=== PATIENT | female | born 1955 | race Two or more races ===

== ENCOUNTER 2020-04-20 13:07 | Outpatient (REF) | payer BC, SELFPAY ==
[2020-04-20 13:52] LABS: MANUAL DIFF FLAG NO
[2020-04-20 13:57] LABS: Basophils Percent Auto 0.2 % (0-2); Hematocrit 36.5 % (37-47); Hemoglobin 12.3 g/dl (12.0-16.0); Imm Gran Abs Auto 0.17 X10*3/uL (0.00-0.03); Imm Gran Pct Auto 1.5 % (0.0-0.4); Lymphocytes Absolute Auto 1.5 X10*3/uL (1.2-4.9); Lymphocytes Percent Auto 13.4 % (20-40); Mean Corpuscular HGB Conc 33.7 g/dl (31.0-35.0); Mean Corpuscular Hemoglobin 35.3 pg (27.0-33.0); Mean Corpuscular Volume 104.9 fL (80-98); Mean Platelet Volume 9.8 fL (9.4-12.3); Monocytes Absolute Auto 0.7 X10*3/uL (0.1-1.2); Monocytes Percent Auto 6.3 % (2-11); Neutrophils Percent Auto 78.6 % (45-73); Platelet Count 338 X10*3/uL (160-400); Red Blood Count 3.48 X10*6/uL (4.20-5.50); White Blood Count 11.5 X10*3/uL (4.8-10.8)
[2020-04-20 14:31] LABS: Anion Gap 15 (12-20); Blood Urea Nitrogen 24 mg/dL (9-16); Calcium 9.6 mg/dL (8.4-10.2); Carbon Dioxide 25 mmol/L (22-29); Chloride 103 mmol/L (96-108); Estimated Glomerular Filt Rate 45; Glucose Random 93 mg/dL (60-115); Potassium 4.5 mmol/l (3.3-5.1); Sodium 138 mmol/L (135-145)
[2020-04-20 15:02] LABS: Folate > 20.0 ng/mL (> or = 4.0); Vitamin B12 > 2000 pg/mL (200-900)
== END 2020-04-20 13:08 | disposition home or self-care (01) ==
LOC: HO.HMGCLDS 13:07
PROVIDERS: PCP Internal Medicine; Visit Provider Internal Medicine
DX: I10 Essential (primary) hypertension (principal)
CPT/HCPCS: 36415; 80048; 82607; 82746; 85025

== ENCOUNTER 2020-05-06 07:30 | Day surgery (SDC) | payer BC, SELFPAY ==
[2020-05-02 16:24] VITALS: BMI 32.5
--- NOTE | 2020-05-05 10:30 | HO.ANESPROP2 ---
Documented by User: Nydia Jenkins 05/05/20 10:38 HPI - Anesthesia Eval Consult details Narrative: 65yo F for screening colonoscopy PMFSH Past Medical History Medical History DJD (degenerative joint disease) of cervical spine Elevated cholesterol GERD (gastroesophageal reflux disease) Graves disease On beta cj at home Peripheral vascular disease Rheumatoid arthritis Surgical History Surgical History History of bladder surgery Hx of appendectomy Hx of colonoscopy Hx of left knee surgery Hx of tonsillectomy Hx of tubal ligation S/P femoral-femoral bypass surgery Social History Social History Advance Directives: No Meds Allergies Allergy/AdvReac Type Severity Reaction Status Date / Time rofecoxib [From VIOXX] Allergy Severe ANAPHYLAXIS Verified 05/06/20 07:38 clopidogrel [From PLAVIX] Allergy Unknown HIUES Verified 05/06/20 07:38 lisinopril [LISINOPRIL] Allergy Unknown ANGIOEDEMA Verified 05/06/20 07:38 Home Medications Medication Instructions Recorded Confirmed Type acetaminophen [Arthritis Pain 650 mg PO Q12H PRN 05/02/20 05/02/20 History Reliever] amlodipine 1 tab PO DAILY 05/02/20 05/02/20 History ascorbic acid (vitamin C) [Vitamin 1,000 mg PO DAILY 05/02/20 05/02/20 History C] aspirin [Aspir-81] 81 mg PO DAILY 05/02/20 05/02/20 History atorvastatin 1 tab PO DAILY 05/02/20 05/02/20 History diazepam 1 tab PO BID 05/02/20 05/02/20 History diclofenac sodium 2 g TOPICAL QID 05/02/20 05/02/20 History fexofenadine [Rhea Allergy] 180 mg PO DAILY 05/02/20 05/02/20 History furosemide 1 tab PO DAILY 05/02/20 05/02/20 History hydroxychloroquine 2 tab PO DAILY 05/02/20 05/02/20 History metoprolol succinate 1 tab PO DAILY 05/02/20 05/02/20 History pantoprazole 40 mg PO DAILY 05/02/20 05/02/20 History spironolactone 1 tab PO DAILY 05/02/20 05/02/20 History vitamin B complex [B Complete] 1 tab PO DAILY 05/02/20 05/02/20 History Exam Exam Date and Time: May 05, 2020 1030 Height,Weight and Vital Signs: Height 5 ft 4 in Weight 86.183 kg Pertinent Lab Results Pertinent Lab Results: Laboratory Tests 04/20/20 04/20/20 13:14 13:14 WBC 11.5 H Hgb 12.3 Hct 36.5 L Plt Count 338 Sodium 138 Potassium 4.5 Chloride 103 Carbon Dioxide 25 BUN 24 H Creatinine 1.22 Assessment and Plan Assessment Anesthesia Assessment: Chart Reviewed Documented by User: Mel Amato 05/06/20 08:39 [facility] Past Medical History Medical History DJD (degenerative joint disease) of cervical spine Elevated cholesterol GERD (gastroesophageal reflux disease) Graves disease On beta cj at home Peripheral vascular disease Rheumatoid arthritis Surgical History Surgical History History of bladder surgery Hx of appendectomy Hx of colonoscopy Hx of left knee surgery Hx of tonsillectomy Hx of tubal ligation S/P femoral-femoral bypass surgery Social History Social History Advance Directives: No Meds Allergies Allergy/AdvReac Type Severity Reaction Status Date / Time rofecoxib [From VIOXX] Allergy Severe ANAPHYLAXIS Verified 05/06/20 07:38 clopidogrel [From PLAVIX] Allergy Unknown HIUES Verified 05/06/20 07:38 lisinopril [LISINOPRIL] Allergy Unknown ANGIOEDEMA Verified 05/06/20 07:38 Home Medications Medication Instructions Recorded Confirmed Type acetaminophen [Arthritis Pain 650 mg PO Q12H PRN 05/02/20 05/02/20 History Reliever] amlodipine 1 tab PO DAILY 05/02/20 05/02/20 History ascorbic acid (vitamin C) [Vitamin 1,000 mg PO DAILY 05/02/20 05/02/20 History C] aspirin [Aspir-81] 81 mg PO DAILY 05/02/20 05/02/20 History atorvastatin 1 tab PO DAILY 05/02/20 05/02/20 History diazepam 1 tab PO BID 05/02/20 05/02/20 History diclofenac sodium 2 g TOPICAL QID 05/02/20 05/02/20 History fexofenadine [Rhea Allergy] 180 mg PO DAILY 05/02/20 05/02/20 History furosemide 1 tab PO DAILY 05/02/20 05/02/20 History hydroxychloroquine 2 tab PO DAILY 05/02/20 05/02/20 History metoprolol succinate 1 tab PO DAILY 05/02/20 05/02/20 History pantoprazole 40 mg PO DAILY 05/02/20 05/02/20 History spironolactone 1 tab PO DAILY 05/02/20 05/02/20 History vitamin B complex [B Complete] 1 tab PO DAILY 05/02/20 05/02/20 History Exam Airway Mallampati Class: II TM Dist: >3cm Neck ROM: Full Assessment and Plan Assessment Anesthesia Assessment: Anesthesia Plan Discussed and Chart Reviewed Final Anesthetic Review NPO: Yes ASA Class: III Final Preanesthetic Review: No Changes in Pt Med Stat, Meds/Allgs Chart Reviewed, Consent Obtained/Reviewed and DNR Form (If Appl.) Patient Risk: Intermediate Procedure Risk: Low Assessment/Block/Sedation in SS: Assess/Block/Sedation-SS Anesthetic Plan Anesthetic Plan: MAC: Disposition: Standard PACU
--- NOTE | 2020-05-05 20:30 | P.HPSUR_ITS ---
Pre-Procedural Eval Section B Chief Complaint: Screening Details of Present Illness: screening Relevant Family History (Specify if Yes): No Relevant Social History: None Present Medications: see Short Stay Collaborative assessment Medical History: Significant History (see H&P) Allergies: Allergies Allergy/AdvReac Type Severity Reaction Status Date / Time rofecoxib [From VIOXX] Allergy Severe ANAPHYLAXIS Unverified 03/31/20 17:04 clopidogrel [From PLAVIX] Allergy Unknown HIUES Unverified 03/31/20 17:04 lisinopril [LISINOPRIL] Allergy Unknown ANGIOEDEMA Unverified 03/31/20 17:04 Review of Systems Sugical H&P ROS: Negative: Constitution, Cardiovascular, Respiratory, Neurologi jassi, Psychiatric, Hem-Onc, Allergic/Immunologic, Gastrointestinal, Genitourinary, Musculoskeletal, Integumentary, Endocrine and Eyes/Ears/Nose/Throat Exam Surgical H&P Exam: Normal: HEENT, Normal: Heart, Normal: Lungs, Normal: Extremities, Normal: Abdomen, Normal: Skin and Normal: Neurological Plan Diagnosis/Plan: Unchanged Patient has been examined and remains a candidate for the planned procedure
[2020-05-06 07:39] VITALS: BP 183/85; PULSE 91; RESP 16; TEMP 36.2; O2SAT 100
[2020-05-06] MEDS: Lactated Ringers 1,000 ML 100 ML IVCONT (08:02)
[2020-05-06 08:50] VITALS: BP 119/68; PULSE 73; RESP 16; TEMP 36; O2SAT 96
--- NOTE | 2020-05-06 08:52 | PM.OP ---
Brief Operative Note Date of procedure: 05/06/20 Pre-op diagnosis: screening Post-op diagnosis: same Procedure: colonoscopy Surgeon: Paul Flores Anesthesia: MAC Estimated blood loss (mL): 0 Pathology: none sent Condition: stable Disposition: PACU
[2020-05-06 09:04] VITALS: BP 155/79; PULSE 67; RESP 16; TEMP 36.1; O2SAT 100
--- NOTE | 2020-05-06 09:18 | HO.POSTANES ---
Post Anesthesia Evaluation Post Anesthesia Evaluation Vital Signs: Vital Signs Temp Pulse Resp BP Pulse Ox 05/06/20 09:04 97 F 67 16 155/79 H 100 05/06/20 08:50 96.8 F 73 16 119/68 96 05/06/20 07:39 97.1 F 91 16 183/85 H 100 Anesthesia: Monitored Mental Status: Awake Pain Control: Satisfactory Nausea/Vomiting: None Hydration: Adequate Anesthesia-Related Issues: No Anes. Related Issues
--- NOTE | 2020-05-06 09:53 | OP_ITS ---
SURGEON: Paul Flores MD INDICATIONS: Colon cancer screening. Prior history of adenomatous colon polyps. PREOPERATIVE DIAGNOSIS: POSTOPERATIVE DIAGNOSIS: PROCEDURE PERFORMED: Colonoscopy to the terminal ileum. ESTIMATED BLOOD LOSS: COMPLICATIONS: ANESTHESIA: ASSISTANTS: SPECIMENS: MEDICATIONS: Monitored anesthesia care. DESCRIPTION OF PROCEDURE: History and physical performed. The risks and benefits of the procedure were explained to the patient. Informed consent was obtained. The patient was placed in the left lateral decubitus position. A digital rectal exam was performed and was found to be normal. The Olympus pediatric video colonoscope was introduced into the rectum and advanced to the cecum without difficulty. The cecum was identified by transillumination, palpation, and identification of ileocecal valve. Examination was performed and the scope was removed. She tolerated the procedure well and was transferred to the recovery area in stable condition. FINDINGS: The terminal ileum was normal. The visualized colonic mucosa was normal. The quality of prep was good. No polyps were identified. Retroflexed examination showed small internal hemorrhoids. There were few diverticula. IMPRESSION: Normal colonoscopy. RECOMMENDATIONS: 1. Follow up as needed. 2. Repeat colonoscopy is recommended in 5 years due to prior history of colon polyps. MD ZAKIYA Russo/DARIAN / [id number]
== END 2020-05-06 09:34 | disposition home or self-care (01) ==
PROVIDERS: PCP Internal Medicine; Visit Provider Internal Medicine Gastroenterology
PROC: 0DJD8ZZ Inspection of Lower Intestinal Tract, Via Natural or Artificial Opening Endoscopic (ICD-10-PCS; CPT 45378; principal; 2020-05-06 08:30)
DX: Z12.11 Encounter for screening for malignant neoplasm of colon (principal); Z86.010 Personal history of colon polyps; K57.30 Diverticulosis of large intestine without perforation or abscess without bleeding; K64.8 Other hemorrhoids; K21.9 Gastro-esophageal reflux disease without esophagitis; E78.00 Pure hypercholesterolemia, unspecified; E05.00 Thyrotoxicosis with diffuse goiter without thyrotoxic crisis or storm; M06.9 Rheumatoid arthritis, unspecified; I73.9 Peripheral vascular disease, unspecified; Z79.82 Long term (current) use of aspirin; Z79.899 Other long term (current) drug therapy; Z88.8 Allergy status to other drugs, medicaments and biological substances
CPT/HCPCS: 45378; J3010

== ENCOUNTER 2020-12-22 09:38 | Outpatient (REF) | payer BC, SELFPAY ==
[2020-12-22 11:08] LABS: MANUAL DIFF FLAG NO
[2020-12-22 11:28] LABS: Basophils Absolute Auto 0.1 X10*3/uL (0.0-0.2); Basophils Percent Auto 0.7 % (0-2); Hematocrit 37.5 % (37-47); Hemoglobin 12.1 g/dl (12.0-16.0); Imm Gran Abs Auto 0.09 X10*3/uL (0.00-0.03); Imm Gran Pct Auto 0.9 % (0.0-0.4); Lymphocytes Absolute Auto 2.1 X10*3/uL (1.2-4.9); Lymphocytes Percent Auto 19.7 % (20-40); Mean Corpuscular HGB Conc 32.3 g/dl (31.0-35.0); Mean Corpuscular Hemoglobin 34.5 pg (27.0-33.0); Mean Corpuscular Volume 106.8 fL (80-98); Mean Platelet Volume 10.3 fL (9.4-12.3); Monocytes Absolute Auto 0.7 X10*3/uL (0.1-1.2); Neutrophils Absolute Auto 7.6 X10*3/uL (2.0-8.3); Neutrophils Percent Auto 71.7 % (45-73); Platelet Count 330 X10*3/uL (160-400); Red Blood Count 3.51 X10*6/uL (4.20-5.50); Red Cell Distribution Width 14.2 % (11.0-16.0); White Blood Count 10.6 X10*3/uL (4.8-10.8)
[2020-12-22 11:57] LABS: Alanine Aminotransferase 22 U/L (0-31); Albumin Level 4.3 g/dL (3.5-5.0); Alkaline Phosphatase 84 U/L (39-117); Anion Gap 16 (12-20); Aspartate Amino Transferase 25 U/L (5-31); Bilirubin Total 0.5 mg/dL (0.0-1.0); Blood Urea Nitrogen 16 mg/dL (9-16); Calcium 10.1 mg/dL (8.4-10.2); Carbon Dioxide 29 mmol/L (22-29); Chloride 102 mmol/L (96-108); Cholesterol 163 mg/dL; Estimated Glomerular Filt Rate 38; Glucose Fasting 93 mg/dL (60-99); HDL Cholesterol 68 mg/dL; LDL Cholesterol Calculated 78 mg/dl; Potassium 4.9 mmol/L (3.3-5.1); Sodium 142 mmol/L (135-145); Total Protein 6.6 g/dL (6.5-8.0); Triglycerides 88 mg/dL
[2020-12-22 12:20] LABS: Thyroid Stimulating Hormone 3.48 uIU/mL (0.32-4.0); Vitamin D 25-OH Total 46.1 ng/mL (>30)
== END 2020-12-22 09:39 | disposition home or self-care (01) ==
LOC: HO.HMGCLDS 09:38
PROVIDERS: PCP Internal Medicine; Visit Provider Internal Medicine
DX: I10 Essential (primary) hypertension (principal); E78.00 Pure hypercholesterolemia, unspecified; M06.09 Rheumatoid arthritis without rheumatoid factor, multiple sites; I73.9 Peripheral vascular disease, unspecified
CPT/HCPCS: 36415; 80053; 80061; 82306; 84443; 85025

== ENCOUNTER 2021-10-02 10:00 | Outpatient (REF) | payer MEDICARE, BC, SELFPAY ==
[2021-10-02 11:42] LABS: MANUAL DIFF FLAG NO
[2021-10-02 11:48] LABS: Basophils Absolute Auto 0.1 X10*3/uL (0.0-0.2); Basophils Percent Auto 0.9 % (0-2); Eosinophils Absolute Auto 0.1 X10*3/uL (0.0-0.4); Eosinophils Percent Auto 2.2 % (0-4); Hematocrit 38.8 % (37.0-47.0); Hemoglobin 12.6 g/dl (12.0-16.0); Imm Gran Abs Auto 0.02 X10*3/uL (0.00-0.03); Imm Gran Pct Auto 0.3 % (0.0-0.4); Lymphocytes Absolute Auto 1.8 X10*3/uL (1.2-4.9); Mean Corpuscular HGB Conc 32.5 g/dl (31.0-35.0); Mean Corpuscular Hemoglobin 32.6 pg (27.0-33.0); Mean Corpuscular Volume 100.5 fL (80.0-98.0); Mean Platelet Volume 10.8 fL (9.4-12.3); Monocytes Absolute Auto 0.5 X10*3/uL (0.1-1.2); Monocytes Percent Auto 8.4 % (2-11); Neutrophils Absolute Auto 3.4 x10*3/uL (2.0-8.3); Neutrophils Percent Auto 58.2 % (45-73); Platelet Count 253 X10*3/uL (160-400); Red Blood Count 3.86 X10*6/uL (4.20-5.50); Red Cell Distribution Width 13.3 % (11.0-16.0); White Blood Count 5.8 X10*3/uL (4.8-10.8)
[2021-10-02 12:10] LABS: Alanine Aminotransferase 38 U/L (0-31); Albumin Level 4.3 g/dL (3.5-5.0); Alkaline Phosphatase 86 U/L (39-117); Anion Gap 16 (12-20); Aspartate Amino Transferase 41 U/L (5-31); Bilirubin Total 0.8 mg/dL (0.0-1.0); Blood Urea Nitrogen 18 mg/dL (9-16); Calcium 10.2 mg/dL (8.4-10.2); Carbon Dioxide 28 mmol/L (22-29); Chloride 100 mmol/L (96-108); Cholesterol 154 mg/dL; Estimated Glomerular Filt Rate 35; Glucose Fasting 95 mg/dL (60-99); HDL Cholesterol 73 mg/dL; LDL Cholesterol Calculated 65 mg/dl; Potassium 3.9 mmol/L (3.3-5.1); Sodium 140 mmol/L (135-145); Total Protein 6.6 g/dL (6.5-8.0); Triglycerides 80 mg/dL
[2021-10-02 12:31] LABS: Vitamin D 25-OH Total 45.6 ng/mL (>30)
[2021-10-02 13:16] LABS: Folate 18.5 ng/mL (> or = 4.0); Vitamin B12 1912 pg/mL (200-900)
[2021-10-02 14:05] LABS: Appearance Urine CLEAR; Color Urine YELLOW; Glucose Urine UA NEG (NEG); Leukocyte Esterase Urine NEG (NEG); Nitrite Urine NEG (NEG); Specific Gravity - Urine 1.025 (1.005-1.025); Urine Blood NEG (NEG); Urine Ketones NEG (NEG); Urine Protein NEG (NEG-TRACE)
[2021-10-02 14:36] LABS: RBC Urine 0 /HPF (0); Squamous Epithelial Cell Urine 1+ /LPF; Urine Talc Crystals 1+ /LPF; WBC Urine 0 /HPF (0-4)
== END 2021-10-02 10:01 | disposition home or self-care (01) ==
LOC: HO.HMGCLDS 10:00
PROVIDERS: PCP Internal Medicine; Visit Provider Internal Medicine
DX: I10 Essential (primary) hypertension (principal); E78.00 Pure hypercholesterolemia, unspecified; M06.09 Rheumatoid arthritis without rheumatoid factor, multiple sites; I73.9 Peripheral vascular disease, unspecified
CPT/HCPCS: 36415; 80053; 80061; 81001; 82306; 82607; 82746; 84443; 85025

== ENCOUNTER 2022-06-12 | Outpatient (REF) | payer MEDICARE, BC, SELFPAY ==
--- NOTE | ~2022-06-12 | XR_ITS ---
EXAMINATION: XR HIP, RIGHT CLINICAL INFORMATION: Right hip pain COMPARISON: None TECHNIQUE: Two views of the right hip and one view of the pelvis. FINDINGS: There is bilateral hip arthritis with joint space narrowing and osteophyte formation, left greater than right. There are degenerative changes of the visualized lower lumbar spine. No fracture or dislocation. There is evidence of severe atherosclerotic disease. There is a right common and external iliac artery stent. There are surgical clips in the right groin. XR/XR hip RT w PEL1V IMPRESSION: Bilateral hip arthritis, left greater than right. Arthritis of the visualized lower lumbar spine. Severe atherosclerotic disease.
== END 2022-06-12 00:01 ==
LOC: HO.HOSX
PROVIDERS: Visit Provider Physician Assistant
DX: M25.551 Pain in right hip (principal); M54.16 Radiculopathy, lumbar region
CPT/HCPCS: 73502; 99212

== ENCOUNTER 2022-06-21 10:05 | Outpatient (REF) | payer MEDICARE, BC, SELFPAY ==
[2022-06-21 11:21] LABS: MANUAL DIFF FLAG NO
[2022-06-21 11:40] LABS: Basophils Absolute Auto 0.1 X10*3/uL (0.0-0.2); Basophils Percent Auto 0.5 % (0-2); Eosinophils Absolute Auto 0.1 X10*3/uL (0.0-0.4); Eosinophils Percent Auto 1.4 % (0-4); Hematocrit 39.2 % (37.0-47.0); Hemoglobin 12.6 g/dl (12.0-16.0); Imm Gran Abs Auto 0.04 X10*3/uL (0.00-0.03); Imm Gran Pct Auto 0.4 % (0.0-0.4); Lymphocytes Absolute Auto 1.7 X10*3/uL (1.2-4.9); Lymphocytes Percent Auto 16.8 % (20-40); Mean Corpuscular HGB Conc 32.1 g/dl (31.0-35.0); Mean Corpuscular Hemoglobin 32.5 pg (27.0-33.0); Mean Platelet Volume 10.1 fL (9.4-12.3); Monocytes Absolute Auto 0.5 X10*3/uL (0.1-1.2); Monocytes Percent Auto 5.5 % (2-11); Neutrophils Absolute Auto 7.4 x10*3/uL (2.0-8.3); Neutrophils Percent Auto 75.4 % (45-73); Platelet Count 269 X10*3/uL (160-400); Red Blood Count 3.88 X10*6/uL (4.20-5.50); Red Cell Distribution Width 14.6 % (11.0-16.0); White Blood Count 9.8 X10*3/uL (4.8-10.8)
[2022-06-21 13:03] LABS: Alanine Aminotransferase 17 U/L (0-31); Albumin Level 4.5 g/dL (3.5-5.0); Alkaline Phosphatase 104 U/L (39-117); Anion Gap 16 (12-20); Aspartate Amino Transferase 24 U/L (5-31); Bilirubin Total 0.7 mg/dL (0.0-1.0); Blood Urea Nitrogen 21 mg/dL (9-16); Calcium 9.9 mg/dL (8.4-10.2); Carbon Dioxide 29 mmol/L (22-29); Chloride 103 mmol/L (96-108); Cholesterol 191 mg/dL; Estimated Glomerular Filt Rate 42; Glucose Fasting 99 mg/dL (60-99); HDL Cholesterol 85 mg/dL; LDL Cholesterol Calculated 91 mg/dl; Potassium 4.7 mmol/L (3.3-5.1); Sodium 143 mmol/L (135-145); Thyroid Stimulating Hormone 2.43 uIU/mL (0.32-4.0); Total Protein 6.8 g/dL (6.5-8.0); Triglycerides 79 mg/dL; Uric Acid 5.3 mg/dL (2.4-5.7); Vitamin D 25-OH Total 54.3 ng/mL (>30)
== END 2022-06-21 10:06 | disposition home or self-care (01) ==
LOC: HO.HMGCLDS 10:05
PROVIDERS: PCP Internal Medicine; Visit Provider Internal Medicine
DX: I10 Essential (primary) hypertension (principal); E78.00 Pure hypercholesterolemia, unspecified; M06.09 Rheumatoid arthritis without rheumatoid factor, multiple sites; I73.9 Peripheral vascular disease, unspecified
CPT/HCPCS: 36415; 80053; 80061; 82306; 84443; 84550; 85025

== ENCOUNTER 2023-06-25 09:44 | Outpatient (REF) | payer MEDICARE, BC, SELFPAY ==
[2023-06-25 13:44] LABS: MANUAL DIFF FLAG NO
[2023-06-25 14:00] LABS: Basophils Absolute Auto 0.1 X10*3/uL (0.0-0.2); Basophils Percent Auto 0.6 % (0-2); Eosinophils Absolute Auto 0.2 X10*3/uL (0.0-0.4); Eosinophils Percent Auto 2.4 % (0-4); Hematocrit 39.4 % (37.0-47.0); Hemoglobin 12.9 g/dl (12.0-16.0); Imm Gran Abs Auto 0.06 X10*3/uL (0.00-0.03); Imm Gran Pct Auto 0.6 % (0.0-0.4); Lymphocytes Absolute Auto 1.9 X10*3/uL (1.2-4.9); Lymphocytes Percent Auto 19.5 % (20-40); Mean Corpuscular HGB Conc 32.7 g/dl (31.0-35.0); Mean Corpuscular Hemoglobin 34.8 pg (27.0-33.0); Mean Corpuscular Volume 106.2 fL (80.0-98.0); Mean Platelet Volume 10.3 fL (9.4-12.3); Monocytes Absolute Auto 0.6 X10*3/uL (0.1-1.2); Monocytes Percent Auto 6.1 % (2-11); Neutrophils Absolute Auto 6.9 x10*3/uL (2.0-8.3); Neutrophils Percent Auto 70.8 % (45-73); Platelet Count 267 X10*3/uL (160-400); Red Blood Count 3.71 X10*6/uL (4.20-5.50); Red Cell Distribution Width 13.1 % (11.0-16.0); White Blood Count 9.8 X10*3/uL (4.8-10.8)
[2023-06-25 14:39] LABS: Alanine Aminotransferase 12 U/L (0-31); Albumin Level 4.3 g/dL (3.5-5.0); Alkaline Phosphatase 74 U/L (39-117); Anion Gap 14 (12-20); Aspartate Amino Transferase 17 U/L (5-31); Bilirubin Total 0.6 mg/dL (0.0-1.0); Blood Urea Nitrogen 21 mg/dL (9-16); Calcium 10.1 mg/dL (8.4-10.2); Carbon Dioxide 26 mmol/L (22-29); Chloride 110 mmol/L (96-108); Cholesterol 178 mg/dL (<200); Estimated Glomerular Filt Rate 46; Glucose Fasting 94 mg/dL (60-99); HDL Cholesterol 63 mg/dL (>40); LDL Cholesterol Calculated 94 mg/dL (<100); Potassium 4.9 mmol/L (3.3-5.1); Sodium 145 mmol/L (135-145); Total Protein 7.1 g/dL (6.5-8.0); Triglycerides 107 mg/dL (<150); Uric Acid 4.8 mg/dL (2.4-5.7)
[2023-06-25 14:43] LABS: Thyroid Stimulating Hormone 2.44 uIU/mL (0.32-4.0); Vitamin D 25-OH Total 48.7 ng/mL (>30)
== END 2023-06-25 09:45 | disposition home or self-care (01) ==
LOC: HO.HMGCLDS 09:44
PROVIDERS: PCP Internal Medicine; Visit Provider Internal Medicine
DX: I10 Essential (primary) hypertension (principal); E78.00 Pure hypercholesterolemia, unspecified; M06.09 Rheumatoid arthritis without rheumatoid factor, multiple sites; I73.9 Peripheral vascular disease, unspecified
CPT/HCPCS: 36415; 80053; 80061; 82306; 84443; 84550; 85025

== ENCOUNTER 2023-10-28 09:52 | Outpatient (REF) | payer MEDICARE, BC, SELFPAY ==
[2023-10-28 13:41] LABS: MANUAL DIFF FLAG NO
[2023-10-28 13:51] LABS: Basophils Absolute Auto 0.1 X10*3/uL (0.0-0.2); Basophils Percent Auto 0.6 % (0-2); Eosinophils Absolute Auto 0.3 X10*3/uL (0.0-0.4); Eosinophils Percent Auto 3.2 % (0-4); Hematocrit 37.8 % (37.0-47.0); Hemoglobin 12.3 g/dl (12.0-16.0); Imm Gran Abs Auto 0.06 X10*3/uL (0.00-0.03); Imm Gran Pct Auto 0.7 % (0.0-0.4); Lymphocytes Absolute Auto 1.5 X10*3/uL (1.2-4.9); Lymphocytes Percent Auto 17.8 % (20-40); Mean Corpuscular HGB Conc 32.5 g/dl (31.0-35.0); Mean Corpuscular Hemoglobin 34.7 pg (27.0-33.0); Mean Corpuscular Volume 106.8 fL (80.0-98.0); Mean Platelet Volume 10.2 fL (9.4-12.3); Monocytes Absolute Auto 0.5 X10*3/uL (0.1-1.2); Monocytes Percent Auto 6.3 % (2-11); Neutrophils Absolute Auto 6.2 x10*3/uL (2.0-8.3); Neutrophils Percent Auto 71.4 % (45-73); Platelet Count 238 X10*3/uL (160-400); Red Blood Count 3.54 X10*6/uL (4.20-5.50); Red Cell Distribution Width 13.8 % (11.0-16.0); White Blood Count 8.6 X10*3/uL (4.8-10.8)
[2023-10-28 14:11] LABS: Alanine Aminotransferase 17 U/L (0-31); Alkaline Phosphatase 73 U/L (39-117); Anion Gap 14 (12-20); Aspartate Amino Transferase 19 U/L (5-31); Bilirubin Total 0.5 mg/dL (0.0-1.0); Blood Urea Nitrogen 15 mg/dL (9-16); Calcium 9.6 mg/dL (8.4-10.2); Carbon Dioxide 27 mmol/L (22-29); Chloride 108 mmol/L (96-108); Cholesterol 163 mg/dL (<200); Estimated Glomerular Filt Rate 55; Glucose Fasting 86 mg/dL (60-99); HDL Cholesterol 57 mg/dL (>40); LDL Cholesterol Calculated 83 mg/dL (<100); Potassium 4.7 mmol/L (3.3-5.1); Sodium 144 mmol/L (135-145); Total Protein 6.5 g/dL (6.5-8.0); Triglycerides 116 mg/dL (<150)
[2023-10-28 15:55] LABS: Folate 13.6 ng/mL (> or = 4.0); Vitamin B12 > 2000 pg/mL (200-900)
== END 2023-10-28 09:53 | disposition home or self-care (01) ==
LOC: HO.HMGCLDS 09:52
PROVIDERS: PCP Internal Medicine; Visit Provider Internal Medicine
DX: I10 Essential (primary) hypertension (principal); E78.00 Pure hypercholesterolemia, unspecified; I73.9 Peripheral vascular disease, unspecified; M06.09 Rheumatoid arthritis without rheumatoid factor, multiple sites
CPT/HCPCS: 36415; 80053; 80061; 82607; 82746; 85025

== ENCOUNTER 2024-04-13 11:57 | Inpatient (IN) | payer MEDICARE, BC, SELFPAY ==
[2024-04-13] VITALS (7 sets, daily range): BP systolic 104–141; BP diastolic 23–67; PULSE 80–88; RESP 16–20; TEMP 36.3–37.4; O2SAT 93–100; BMI 37.8
--- NOTE | ~2024-04-13 | XR_ITS ---
EXAMINATION: XR CHEST CLINICAL INFORMATION: Weakness after fall. COMPARISON: None available. TECHNIQUE: Frontal view of the chest was obtained. FINDINGS: Low lung volumes. No airspace consolidation. No pleural effusion. Cardiac silhouette is unchanged. XR/XR chest 1V IMPRESSION: No acute abnormality. Electronically signed by: Jai Faye MD 04/13/2024 01:31 PM EDT
--- NOTE | ~2024-04-13 | CT_ITS ---
EXAMINATION: CT HEAD WITHOUT CONTRAST CLINICAL INFORMATION: Left lower extremity weakness. COMPARISON: None currently available. TECHNIQUE: Contiguous axial imaging was performed from the skull base to vertex without intravenous administration of contrast. This CT examination was performed using dose optimization techniques as appropriate, variously including the following: *Automated exposure control *Adjustment of mA and/or kV according to patient size (this includes techniques or standardized protocols for targeted exams where dose is matched to indication/reason for exam; i.e. extremities or head) *Use of iterative reconstruction technique DLP: 1445 mGy-cm FINDINGS: No intracranial hemorrhage, large infarction, or mass lesion is seen. No extra-axial collection is appreciated. The ventricles are normal in size and configuration without evidence of hydrocephalus. The visualized paranasal sinuses and mastoid air cells are clear. CT/CT head/brain wo IV con IMPRESSION: No acute intracranial finding. Electronically signed by: Mark Marti MD 04/13/2024 02:37 PM EDT
--- NOTE | ~2024-04-13 | CT_ITS ---
EXAMINATION: CT ABDOMEN AND PELVIS WITHOUT CONTRAST CLINICAL INFORMATION: Leukocytosis. Weakness. COMPARISON: CT abdomen and pelvis from 12/20/2015. TECHNIQUE: Multidetector volumetric imaging was performed from the lung bases to the pubic without contrast. Sagittal and coronal reformatted images were obtained on the technologist workstation. This CT examination was performed using dose optimization techniques as appropriate, variously including the following: *Automated exposure control. *Adjustment of mA and/or kV according to patient size (this includes techniques or standardized protocols for targeted exams where dose is matched to indication/reason for exam; i.e. extremities or head). *Use of iterative reconstruction technique. DLP: 717 mGy-cm FINDINGS: LUNG BASES: Patchy airspace consolidation of the left lung base. Mild dependent atelectasis of the right lung base. Heavy calcific atherosclerotic disease of the coronary arteries. No additional demonstrated abnormalities of the visualized cardiac structures. ABDOMEN/PELVIS: Liver, Biliary Ducts, and Gallbladder: The unenhanced liver is normal in size and attenuation without focal hepatic lesions or biliary ductal dilatation. The gallbladder is physiologically distended without radiopaque gallstones, pericholecystic fluid, or significant gallbladder wall thickening. Pancreas: The pancreas is normal in appearance. Adrenal Glands: The adrenal glands are normal in appearance. Spleen: The spleen is normal in appearance. Kidneys and Ureters: The unenhanced kidneys are normal in size without evidence of nephrolithiasis or hydronephrosis. There is a 2.5 cm hypoattenuating cyst in the lower pole the right kidney (no follow-up imaging recommended based on current guidelines at the time of examination). There is a 2 cm mildly hyperattenuating nodule in the interpolar region of the left kidney (35 Hounsfield units). Mild bilateral perinephric fat stranding. No ureterolithiasis or hydroureter. Urinary Bladder: The urinary bladder is partially distended without focal wall thickening. No bladder calculi are demonstrated. Gastrointestinal System: The stomach is decompressed and therefore not well evaluated on this exam. The small bowel is of normal caliber. The colon is normal in appearance without focal wall thickening or pericolonic inflammatory change. Genitourinary: Changes of prior hysterectomy. No demonstrated adnexal soft tissue masses. Intra-abdominal and Retroperitoneal Spaces: No intra-abdominal free fluid collections or gas. No mesenteric, retroperitoneal, or inguinal lymphadenopathy. VASCULATURE: Heavy calcific atherosclerotic disease. Stent in place within the right common and external iliac arteries. Changes of prior femoral bypass grafting. MUSCULOSKELETAL: Moderate multilevel degenerative changes of the spine. Vessel moderate degenerative stepwise retrolisthesis of L2-L4. Mild right convex curvature of the lumbar spine. Moderate degenerative arthropathy of the left hip joint. No lytic or sclerotic osseous lesions demonstrated. No soft tissue masses demonstrated. CT/CT abdomen pelvis wo IV con IMPRESSION: 1. Patchy airspace consolidation of the left lung base suggestive of an infectious/inflammatory process. 2. No additional CT abnormalities of the abdomen and pelvis to explain the patient's symptoms. 3. There is a 2 cm mildly hyperattenuating nodule in the interpolar region of the left kidney. This may represent a proteinaceous/hemorrhagic cyst; however, further characterization with renal ultrasound is recommended to exclude a solid lesion. Electronically signed by: Azam Chadwick DO 04/13/2024 06:50 PM EDT
--- NOTE | 2024-04-13 12:38 | ECG_ITS ---
Test Reason : WEAKNESS Blood Pressure : / mmHG Vent. Rate : 088 BPM Atrial Rate : 088 BPM P-R Int : 150 ms QRS Dur : 140 ms QT Int : 442 ms P-R-T Axes : 052 055 011 degrees QTc Int : 534 ms Normal sinus rhythm Right bundle branch block Abnormal ECG When compared with ECG of 18-APR-2008 12:21, Right bundle branch block is now Present QT has lengthened Referred By: Jane Templeton Electronically Signed By:MARY JANE JOY
--- NOTE | 2024-04-13 13:28 | ED.WEAKNESS ---
HPI - Weakness General Chief complaint: Weakness Stated complaint: 2 FALLS,BLE WEAK,NO OTHER COMP PER EMS Time Seen by Provider: 04/13/24 12:20 Source: patient, EMS, RN notes reviewed and old records reviewed Mode of arrival: EMS History of Present Illness ED Provider: Jane Templeton PA-C HPI Narrative: 68-year-old female with a past medical history of GERD, rheumatoid arthritis, Graves disease, DJD, HLD, PVD, presenting to the ED via EMS complaining of generalized fatigue/weakness > lower extremities x3 days worsening this morning with 2 mechanical falls. Admits to LLE weakness. Reports fell getting out of bed, states legs gave out, was unable to get off ground unassisted. Then had additional fall when getting off toilet. Denies head trauma or LOC. Takes 325 ASA daily. Reports chronic lower extremity numbness/tingling. Denies headache chest pain, shortness breath, abdominal pain, nausea/vomiting Related Data Home Medications ?Medication ?Instructions ?Recorded ?Confirmed acetaminophen 650 mg 650 mg PO Q12H PRN Pain 05/02/20 05/02/20 tablet,extended release (Arthritis Pain Reliever) ascorbic acid (vitamin C) 1,000 mg 1,000 mg PO DAILY 05/02/20 05/02/20 tablet (Vitamin C) aspirin 81 mg tablet,delayed 81 mg PO DAILY 05/02/20 05/02/20 release atorvastatin 20 mg tablet 1 tab PO DAILY 05/02/20 05/02/20 furosemide 20 mg tablet 1 tab PO DAILY 05/02/20 05/02/20 spironolactone 50 mg tablet 1 tab PO DAILY 05/02/20 05/02/20 vitamin B complex 1 tab PO DAILY 05/02/20 05/02/20 alendronate 70 mg tablet 70 mg PO QWEEK 06/12/22 allopurinol 100 mg tablet 200 mg PO DAILY 06/12/22 aspirin 325 mg tablet,delayed 325 mg PO DAILY 06/12/22 release metoprolol succinate 50 mg 50 mg PO DAILY 06/12/22 tablet,extended release 24 hr omeprazole 40 mg capsule,delayed 40 mg PO QAM 04/13/24 release Allergies Allergy/AdvReac Type Severity Reaction Status Date / Time rofecoxib [From VIOXX] Allergy Severe ANAPHYLAXIS Verified 04/13/24 12:23 clopidogrel [From PLAVIX] Allergy Unknown HIUES Verified 04/13/24 12:23 lisinopril [LISINOPRIL] Allergy Unknown ANGIOEDEMA Verified 04/13/24 12:23 Review of Systems Review of Systems: Yes all other systems are reviewed and are negative Constitutional: Constitutional: Reports as per HPI Neurologic: Denies Abnormal speech present [facility] Past Medical History Attestation statement: The following information was validated with the patient. Source: old records reviewed Medical History On beta cj at home GERD (gastroesophageal reflux disease) Rheumatoid arthritis Graves disease DJD (degenerative joint disease) of cervical spine Elevated cholesterol Peripheral vascular disease Surgical History S/P femoral-femoral bypass surgery Hx of left knee surgery History of bladder surgery Hx of tubal ligation Hx of tonsillectomy Hx of appendectomy Hx of colonoscopy Social History Social History Smoked in Last 30 Days: No Advance Directives: No Advance Directives Information Provided: Yes Do you have a plan to hurt others: No Plan Physical Exam Vital Signs: Vital Signs: Last Vital Signs Temp 99.3 F 04/13/24 12:19 Pulse 80 04/13/24 16:25 Resp 20 04/13/24 12:19 BP 114/37 L 04/13/24 16:25 Pulse Ox 93 04/13/24 12:19 O2 Del Method Room Air 04/13/24 12:19 BMI result Body Mass Index 37.8 Const: General: cooperative, healthy appearing and no acute distress Orientation/consciousness: patient oriented x3 Limitations: no limitations HEENT: Head: Yes normal to inspection, Yes atraumatic and No Chau's sign Ears: hearing grossly normal bilaterally General nose exam: Normal external nose present Face and sinus: Yes normal facial exam Mouth: Normal oral and palatal mucosa present Throat: Yes posterior oropharynx normal Eyes: General: appearance normal, both eyes and all related structures Pupils: Equal, round and reactive pupils present EOM: EOMs intact bilaterally Neck: Neck: Yes normal visual inspection and Yes no meningeal signs Resp: Effort & Inspection: normal respiratory effort and no respiratory distress Auscultation: clear to auscultation bilaterally and crackles bilateral at the base Cardio: Rate: regular rate Heart sounds: S1 normal heart sound present and S2 normal heart sound present GI: Inspection: Yes normal to inspection Palpation (GI): Soft to palpation, nontender, no guarding and not rigid : General: Yes no CVA tenderness Back/Spine/Pelvis: Other: No midline cervical/thoracic/lumbar spinous tenderness/step-off or deformity Back: no CVA tenderness Skin: Rashes: no rashes Wounds: no wounds Neuro: Other: +bilateral LE weakness > LLE. NV intact. +unsteady gait, no ataxia. Patellar DTRs WNL. General: patient oriented x3, tone normal, no meningeal signs and CN's II-XI intact bilaterally Cranial nerves: Yes CN's II-XII intact bilaterally and Yes Equal, round and reactive pupils present Cognition (Neuro): normal cognition Speech: No Abnormal speech present Motor exam (neuro): no tremor noted Romberg Test: Negative Extrem: General: Yes edema Course Course Course Narrative: -1403--leukocytosis of 20.3 > infection suspected. Will obtain lactic/blood cultures and give empiric IV Zosyn. XR chest 1V IMPRESSION: No acute abnormality. -1418-- + PATRICIA with BUN of 18 creatinine 1.5. AST elevated to 54. Troponin elevated at 185 > likely from PATRICIA. Patient continues to deny chest pain. Will continue to monitor/trend. -CRP elevated to 26.97 -1448--ESR elevated to 84. BNP 440 CT head/brain wo IV con IMPRESSION: No acute intracranial finding. -1600--viral studies negative. UA with RBCs, not infected. Contaminated. >> no source of infection at this time > will obtain CT abdomen/pelvis for further evaluation -1652--repeat troponin 479.1 > patient continues to deny chest pain, shortness breath or palpitations. Case discussed with Cardiology, Dr. Begum who recommends hydration, and treating for sepsis. > low suspicion for acute ACS at this time -1850--third troponin now 552.1 > case discussed with cardiology. No heparin drip recommended at this time. Still believe secondary to sepsis. No source of sepsis at this time. CTAP pending ([facility] has been contacted previously) 1856--CT abdomen pelvis wo IV con IMPRESSION: 1. Patchy airspace consolidation of the left lung base suggestive of an infectious/inflammatory process. 2. No additional CT abnormalities of the abdomen and pelvis to explain the patient's symptoms. 3. There is a 2 cm mildly hyperattenuating nodule in the interpolar region of the left kidney. This may represent a proteinaceous/hemorrhagic cyst; however, further characterization with renal ultrasound is recommended to exclude a solid lesion. > case discussed with hospitalist. Plan for admission Medications Administered Discontinued Medications Generic Name Dose Route Start Last Admin Trade Name Silviano PRN Reason Stop Dose Admin Sodium Chloride 1,000 mls @ 999 mls/hr 04/13/24 14:00 04/13/24 15:55 Ns IV 04/13/24 15:00 Infused .Q1H1M IRVIN Infusion Piperacillin Sod/Tazobactam 100 mls @ 200 mls/hr 04/13/24 14:27 04/13/24 15:18 Sod 4.5 gm/ Sodium Chloride IV 04/13/24 14:56 Infused ONCE ONE Infusion Lactated Ringer's 1,000 mls @ 999 mls/hr 04/13/24 16:45 04/13/24 18:54 Lr IV 04/13/24 17:45 Infused .Q1H1M IRVIN Infusion Medical Decision Making Medical Decision Making [facility] Narrative: 68-year-old female with a past medical history of GERD, rheumatoid arthritis, Graves disease, DJD, HLD, PVD, presenting to the ED via EMS complaining of generalized fatigue/weakness > lower extremities x3 days worsening this morning with 2 mechanical falls. On exam vital signs stable, low-grade temp 99.3 degrees, lower extremity weakness appreciated greater on the left. DTRs WNL. Unsteady gait. Concern for subacute CVA vs metabolic/infectious etiologies vs tick borne illness. Lower suspicion for Guillain-[place]. Patient does not meet criteria for TNK. Low suspicion for severe sepsis at this time Plan: EKG, labs, UA, CXR, head CT, viral studies, re-evaluate, anticipate admission Please refer to course for remaining clinical decision making, interpretation of labs/imaging results, and discussions with consultants and/or family members. Differential Diagnosis Differential Diagnoses: The differential diagnosis associated with the presentation includes As above Admission/Observation Consideration of admission/observation: Escalation of care including admission/observation considered Consult Healthcare Provider Management of the patient was discussed with: Hospitalist and Marketing Finance Manager (Cardiology) Lab Data [facility] Lab Attestation statement: I reviewed the patient's lab results. 04/13/24 13:42 04/13/24 13:42 Labs: Lab Results 04/13/24 04/13/24 04/13/24 Range/Units 13:42 14:40 15:37 WBC 20.3 H (4.8-10.8) X10*3/uL RBC 3.43 L (4.20-5.50) X10*6/uL Hgb 12.0 (12.0-16.0) g/dl Hct 36.1 L (37.0-47.0) % MCV 105.2 H (80.0-98.0) fL MCH 35.0 H (27.0-33.0) pg MCHC 33.2 (31.0-35.0) g/dl RDW 13.6 (11.0-16.0) % Plt Count 230 (160-400) X10*3/uL MPV 9.4 (9.4-12.3) fL Immature Gran % (Auto) 0.5 H (0.0-0.4) % Neut % (Auto) 84.7 H (45-73) % Lymph % (Auto) 6.3 L (20-40) % Tate % (Auto) 8.2 (2-11) % Eos % (Auto) 0.0 (0-4) % Baso % (Auto) 0.3 (0-2) % Lymph # (Auto) 1.3 (1.2-4.9) X10*3/uL Tate # (Auto) 1.7 H (0.1-1.2) X10*3/uL Eos # (Auto) 0.0 (0.0-0.4) X10*3/uL Baso # (Auto) 0.1 (0.0-0.2) X10*3/uL Abs Immat Gran (auto) 0.11 H (0.00-0.03) X10*3/uL Absolute Neuts (auto) 17.2 H (2.0-8.3) x10*3/uL Absolute Nucleated RBC 0.000 (0.0-0.012) X10*3/uL Nucleated RBC % (auto) 0.0 (0.0-0.2) /100WBC Smear Tech's Comments VERIFIED ESR 84 H (0-20) MM/HR PT 15.1 H (10.9-12.4) SEC INR 1.3 H (0.9-1.1) Sodium 147 H (135-145) mmol/L Potassium 3.5 D (3.3-5.1) mmol/L Chloride 109 H (96-108) mmol/L Carbon Dioxide 27 (22-29) mmol/L Anion Gap 15 (12-20) BUN 18 H (9-16) mg/dL Creatinine 1.51 H (0.5-1.4) mg/dL Estim Creat Clear Calc 40.0 Estimated GFR 34 Random Glucose 109 (60-115) mg/dL Lactic Acid 1.7 (0.5-2.0) mmol/L Calcium 9.9 (8.4-10.2) mg/dL Magnesium 1.6 (1.6-2.6) mg/dL Total Bilirubin 1.2 H (0.0-1.0) mg/dL Direct Bilirubin 0.5 (0.0-0.5) mg/dL AST 54 H (5-31) U/L ALT 15 (0-31) U/L Alkaline Phosphatase 66 (39-117) U/L Troponin I High Sens 185.0 H* (<3.5-17.0) ng/L C-Reactive Protein 26.97 H (< or = 0.50) mg/dL B-Natriuretic Peptide 440 H (<100) pg/mL Total Protein 7.0 (6.5-8.0) g/dL Albumin 3.9 (3.5-5.0) g/dL Urine Color Dark Yellow Urine Appearance Cloudy Urine pH 5.5 (5.0-9.0) Ur Specific [place] 1.020 (1.005-1.025) Urine Protein 100 (2+) H (Neg-Trace) mg/dL Urine Glucose (UA) Negative (Negative) mg/dL Urine Ketones Trace (Negative) mg/dL Urine Blood Large (3+) H (Negative) Urine Nitrite Negative (Negative) Ur Leukocyte Esterase Small (1+) H (Negative) Urine RBC 3-5 H (0-2) /HPF Urine WBC 0-5 (0-5) /HPF Ur Squamous Epith Cells 11-20 (0-2) /HPF Urine Bacteria None Seen (None Seen) Hyaline Casts 3-5 (0-2) /LPF Granular Casts Present Influenza Type A (PCR) NEGATIVE (Negative) Influenza Type B (PCR) NEGATIVE (Negative) RSV RNA Qual (PCR) NEGATIVE (Negative) SARS-CoV-2 RNA (RT-PCR) NEGATIVE (Negative) 04/13/24 04/13/24 Range/Units 16:12 18:18 WBC (4.8-10.8) X10*3/uL RBC (4.20-5.50) X10*6/uL Hgb (12.0-16.0) g/dl Hct (37.0-47.0) % MCV (80.0-98.0) fL MCH (27.0-33.0) pg MCHC (31.0-35.0) g/dl RDW (11.0-16.0) % Plt Count (160-400) X10*3/uL MPV (9.4-12.3) fL Immature Gran % (Auto) (0.0-0.4) % Neut % (Auto) (45-73) % Lymph % (Auto) (20-40) % Tate % (Auto) (2-11) % Eos % (Auto) (0-4) % Baso % (Auto) (0-2) % Lymph # (Auto) (1.2-4.9) X10*3/uL Tate # (Auto) (0.1-1.2) X10*3/uL Eos # (Auto) (0.0-0.4) X10*3/uL Baso # (Auto) (0.0-0.2) X10*3/uL Abs Immat Gran (auto) (0.00-0.03) X10*3/uL Absolute Neuts (auto) (2.0-8.3) x10*3/uL Absolute Nucleated RBC (0.0-0.012) X10*3/uL Nucleated RBC % (auto) (0.0-0.2) /100WBC Smear Tech's Comments ESR (0-20) MM/HR PT (10.9-12.4) SEC INR (0.9-1.1) Sodium (135-145) mmol/L Potassium (3.3-5.1) mmol/L Chloride (96-108) mmol/L Carbon Dioxide (22-29) mmol/L Anion Gap (12-20) BUN (9-16) mg/dL Creatinine (0.5-1.4) mg/dL Estim Creat Clear Calc Estimated GFR Random Glucose (60-115) mg/dL Lactic Acid (0.5-2.0) mmol/L Calcium (8.4-10.2) mg/dL Magnesium (1.6-2.6) mg/dL Total Bilirubin (0.0-1.0) mg/dL Direct Bilirubin (0.0-0.5) mg/dL AST (5-31) U/L ALT (0-31) U/L Alkaline Phosphatase (39-117) U/L Troponin I High Sens 479.1 H* D 552.1 H* (<3.5-17.0) ng/L C-Reactive Protein (< or = 0.50) mg/dL B-Natriuretic Peptide (<100) pg/mL Total Protein (6.5-8.0) g/dL Albumin (3.5-5.0) g/dL Urine Color Urine Appearance Urine pH (5.0-9.0) Ur Specific [place] (1.005-1.025) Urine Protein (Neg-Trace) mg/dL Urine Glucose (UA) (Negative) mg/dL Urine Ketones (Negative) mg/dL Urine Blood (Negative) Urine Nitrite (Negative) Ur Leukocyte Esterase (Negative) Urine RBC (0-2) /HPF Urine WBC (0-5) /HPF Ur Squamous Epith Cells (0-2) /HPF Urine Bacteria (None Seen) Hyaline Casts (0-2) /LPF Granular Casts Influenza Type A (PCR) (Negative) Influenza Type B (PCR) (Negative) RSV RNA Qual (PCR) (Negative) SARS-CoV-2 RNA (RT-PCR) (Negative) Independent Interpretation I performed an independent interpretation of an: EKG (My interpretation EKG normal sinus rhythm rate of 88. Right bundle-branch block now present when compared to prior. QT lengthened. No STEMI.), Plain X-Ray and CT Scan Radiology Impression Discussion of test interpretation with radiology: I have reviewed the radiologist's reading. Independent Historian Clinical information obtained from an independent historian. History obtained from or confirmed by: Spouse and EMS External Record Review External record reviewed: Inpatient record, Office record, Outpatient record, Prior outpatient labs, Prior outpatient radiology, Primary care record and Outside ED record Tests considered The following testing was considered but not selected: As above Prescription Management I considered prescription management with: Antibiotic Chronic Conditions Patient?s care impacted by: Other (PAD) Critical Care Time Critical Care Time Critical Care Time: Yes Total Critical Care Time: 90 Attestation: I have personally provided critical care time exclusive of time spent on separately billable procedures. Time includes review of lab data, radiology results, discussion with consultants, and monitoring for potential decompensation. Intervention performed as documented. Discharge Plan Discharge Clinical Impression: Pneumonia, PATRICIA (acute kidney injury), Lower extremity weakness Patient Disposition: Admitted As Inpatient Print Language: [place]
[2024-04-13 13:53] LABS: Basophils Absolute Auto 0.1 X10*3/uL (0.0-0.2); Basophils Percent Auto 0.3 % (0-2); Hematocrit 36.1 % (37.0-47.0); Imm Gran Abs Auto 0.11 X10*3/uL (0.00-0.03); Imm Gran Pct Auto 0.5 % (0.0-0.4); Lymphocytes Absolute Auto 1.3 X10*3/uL (1.2-4.9); Lymphocytes Percent Auto 6.3 % (20-40); MANUAL DIFF FLAG SCAN; Mean Corpuscular HGB Conc 33.2 g/dl (31.0-35.0); Mean Corpuscular Volume 105.2 fL (80.0-98.0); Mean Platelet Volume 9.4 fL (9.4-12.3); Monocytes Absolute Auto 1.7 X10*3/uL (0.1-1.2); Monocytes Percent Auto 8.2 % (2-11); Neutrophils Absolute Auto 17.2 x10*3/uL (2.0-8.3); Neutrophils Percent Auto 84.7 % (45-73); Platelet Count 230 X10*3/uL (160-400); Red Blood Count 3.43 X10*6/uL (4.20-5.50); Red Cell Distribution Width 13.6 % (11.0-16.0); SCAN SMEAR FLAG 1; White Blood Count 20.3 X10*3/uL (4.8-10.8)
[2024-04-13 13:55] LABS: INTERNATIONAL NORM RATIO 1.3 (0.9-1.1); Prothrombin Time 15.1 SEC (10.9-12.4)
[2024-04-13 14:07] LABS: Alanine Aminotransferase 15 U/L (0-31); Albumin Level 3.9 g/dL (3.5-5.0); Alkaline Phosphatase 66 U/L (39-117); Anion Gap 15 (12-20); Aspartate Amino Transferase 54 U/L (5-31); Bilirubin Direct 0.5 mg/dL (0.0-0.5); Bilirubin Total 1.2 mg/dL (0.0-1.0); Blood Urea Nitrogen 18 mg/dL (9-16); C Reactive Protein 26.97 mg/dL (< or = 0.50); Calcium 9.9 mg/dL (8.4-10.2); Carbon Dioxide 27 mmol/L (22-29); Chloride 109 mmol/L (96-108); Estimated Glomerular Filt Rate 34; Glucose Random 109 mg/dL (60-115); Magnesium 1.6 mg/dL (1.6-2.6); Potassium 3.5 mmol/L (3.3-5.1); Sodium 147 mmol/L (135-145)
[2024-04-13 14:13] LABS: SLIDE REVIEW VERIFIED
[2024-04-13 14:30] LABS: Influenza A PCR NEGATIVE (Negative); Influenza B PCR NEGATIVE (Negative); Resp Syncy Virus RNA Qual PCR NEGATIVE (Negative); SARS COV2 PCR INHOUSE NEGATIVE (Negative)
[2024-04-13 14:33] LABS: Erythrocyte Sedimentation Rate 84 MM/HR (0-20)
[2024-04-13 14:45] LABS: B Type Natriuretic Peptide 440 pg/mL (<100)
[2024-04-13] MEDS: Piperacillin Sodium/Tazobactam 4.5 GM in 0.9 % Sodium Chloride 100 ML IV (14:48)
[2024-04-13] MEDS: 0.9 % Sodium Chloride 1,000 ML 999 ML IV (14:54)
[2024-04-13 15:04] LABS: Lactic Acid 1.7 mmol/L (0.5-2.0)
[2024-04-13 15:48] LABS: Appearance Urine Cloudy; Color Urine Dark Yellow; Glucose Urine UA Negative (Negative); Leukocyte Esterase Urine Small (1+) (Negative); Nitrite Urine Negative (Negative); PH 5.5 (5.0-9.0); UMIC TRIGGER UACC YES; Urine Blood Large (3+) (Negative); Urine Ketones Trace mg/dL (Negative); Urine Protein 100 (2+) mg/dL (Neg-Trace)
[2024-04-13 15:56] LABS: Bacteria Urine None Seen (None Seen); Granular Casts Urine Present; UACC Culture Trigger YES; WBC Urine 0-5 /HPF (0-5)
[2024-04-13 16:41] LABS: Troponin-I High Sensitivity 479.1 ng/L (<3.5-17.0)
[2024-04-13] MEDS: Lactated Ringers 1,000 ML 999 ML IV (17:17)
--- NOTE | 2024-04-13 18:30 | MHC.EDTECH ---
called [facility] at 625pm they said [address] Abdomen scan
--- NOTE | 2024-04-13 18:47 | ECG_ITS ---
Test Reason : ELEVATED TROP Blood Pressure : / mmHG Vent. Rate : 075 BPM Atrial Rate : 075 BPM P-R Int : 172 ms QRS Dur : 150 ms QT Int : 436 ms P-R-T Axes : 067 072 033 degrees QTc Int : 486 ms Normal sinus rhythm Right bundle branch block Abnormal ECG When compared with ECG of 13-APR-2024 13:03, No significant change was found Referred By: Jane Templeton Electronically Signed By:MARY JANE JOY
[2024-04-13 18:48] LABS: Troponin-I High Sensitivity 552.1 ng/L (<3.5-17.0)
--- NOTE | 2024-04-13 19:02 | PC.NURSE ---
per cardiology- no heparin drip at this time for critical trop.
--- NOTE | 2024-04-13 19:05 | PC.NURSE ---
pt resting quietly at this time, no complaints offered. this nurse assisted pt oob with RW, pt was able to ambulate to bathroom with minimal assistance- urine sample provided. pt awating evaluation by hospitalist for admission
--- NOTE | 2024-04-13 19:05 | PM.IMHP ---
History of Present Illness Date of Service: 04/13/24 Attending physician on admission: Kimi Mueller Chief Complaint: Generalized weakness, fall at home Pt is a 68-year-old female with a PMH significant for HLD, HTN, peripheral vascular disease s/p bilateral fem-pop bypass and stenting in 2018, hx of gout, and GERD who presents to the ED for evaluation of generalized weakness/fatigue x3 days and falls at home. Pt states she fell earlier this morning when she attempted to get out of the bed. Needed assistance getting off the floor. Denies headstrike or LOC. No lightheadedness or dizziness. States ?my legs just gave?. A half hour latter pt reports had an additional fall while on the toilet that again required assistance in getting up. Patient farrah has just recently returned from [place], where she admits to getting sunburned on her legs and upper back. States he has been feeling fatigued for the past 2 days, and not eating much for the past 4-5 days, though reports has been drinking normally. Patient also states he has had a long history of chronic left lower extremity weakness for which she has just been re-evaluated by Dr. Shannan Torres at [facility]. Reports has had at least 2 prior similar episodes with last 1 6 months ago when she has had weakness with falls at home that required EMS assistance in getting her up. Patient denies any stroke-like symptoms including new hemiparesis, difficulty speaking, fogginess in thinking, or confusion. Denies significant SOB or STEVE, reports has chronic cough that is mostly nonproductive and around baseline. Denies chest pain or pressure. No fever, chills, nausea, vomiting, diarrhea, abdominal pain. Uses a cane at home for ambulation at baseline, though reports has been considering getting a walker. In the ED pt with low-grade fever of 99.3, and slightly soft BP as low as 104/30, satting at 93% on RA. Labs were significant for leukocytosis of 20.3, ESR 84, sodium 147, creatinine 1.51(baseline around 1.01), bilirubin 1.2, AST 54, initial troponin 185.0 with repeats 479.1 and 552.1; CRP 26.97, BNP 440. UA not convincing for acute UTI. CXR showed no acute abnormality. CT?of abdomen/pelvis found patchy airspace consolidation of left lung base suggestive of infectious/inflammatory process, though negative for acute abdomen and pelvis. Also found 2 cm mildly hyperattenuating nodule of left kidney. EKG demonstrated normal sinus rhythm with RBBB, and Qc of 534, but no evidence of significant ST elevations or depressions. Repeat EKG similar to previous, though QTc decreased to 486. Pt was treated with Darian IVF and Zosyn. Pt will be admitted to the hospital for treatment and further evaluation of generalized weakness with multiple falls at home in the setting of PATRICIA and community-acquired pneumonia. Review of Systems Review of Systems: Generalized weakness, fatigue Mechanical falls at home Reduced p.o. intake Chronic lower left extremity weakness Chronic mostly nonproductive cough Denies chest pain/pressure, palpitations No fever, chills, nausea, vomiting, abdominal pain Denies shortness a breath or difficulty breathing [facility] Medical History On beta cj at home GERD (gastroesophageal reflux disease) Rheumatoid arthritis Graves disease DJD (degenerative joint disease) of cervical spine Elevated cholesterol Peripheral vascular disease Surgical History S/P femoral-femoral bypass surgery Hx of left knee surgery History of bladder surgery Hx of tubal ligation Hx of tonsillectomy Hx of appendectomy Hx of colonoscopy Social History Smoked in Last 30 Days: No Advance Directives: No Advance Directives Information Provided: Yes Do you have a plan to hurt others: No Plan Meds Allergies Allergy/AdvReac Type Severity Reaction Status Date / Time rofecoxib [From VIOXX] Allergy Severe ANAPHYLAXIS Verified 04/13/24 12:23 clopidogrel [From PLAVIX] Allergy Unknown HIUES Verified 04/13/24 12:23 lisinopril [LISINOPRIL] Allergy Unknown ANGIOEDEMA Verified 04/13/24 12:23 Home Medications ?Medication ?Instructions ?Recorded ?Confirmed ?Last Taken ?Type acetaminophen 650 mg 650 mg PO Q12H PRN Pain 05/02/20 04/13/24 04/12/24 History tablet,extended release (Arthritis Pain Reliever) ascorbic acid (vitamin C) 1,000 mg 1,000 mg PO DAILY 10/04/13/24 04/12/24 History tablet (Vitamin C) atorvastatin 20 mg tablet 20 mg PO DAILY 05/02/20 04/13/24 04/12/24 History furosemide 20 mg tablet 20 mg PO DAILY 05/02/20 04/13/24 04/12/24 History spironolactone 50 mg tablet 50 mg PO DAILY 05/02/20 04/13/24 04/12/24 History vitamin B complex 1 tab PO DAILY 05/02/20 04/13/24 04/12/24 History alendronate 70 mg tablet 70 mg PO STAPLES 06/12/22 04/13/24 04/12/24 History allopurinol 100 mg tablet 200 mg PO DAILY 06/12/22 04/13/24 04/12/24 History aspirin 325 mg tablet,delayed 325 mg PO DAILY 06/12/22 04/13/24 04/12/24 History release metoprolol succinate 50 mg 50 mg PO DAILY 06/12/22 04/13/24 04/12/24 History tablet,extended release 24 hr omeprazole 40 mg capsule,delayed 40 mg PO DAILY@0630 04/13/24 04/13/24 04/12/24 History release Physical Exam Vital Signs and Narrative: Vital Signs: Last Vital Signs Temp 99.3 F 04/13/24 12:19 Pulse 80 04/13/24 16:25 Resp 20 04/13/24 12:19 BP 114/37 L 04/13/24 16:25 Pulse Ox 93 04/13/24 12:19 O2 Del Method Room Air 04/13/24 12:19 BMI result Body Mass Index 37.8 Constitutional: Alert, in no acute distress. Mental Status: Oriented to person, place and time. Eyes: Pupils are equal, round, and reactive to light. Ear, Nose, and Throat: Oropharynx clear, mucous membranes moist. Ears and nose without deformities. Trachea midline. Respiratory: Clear to auscultation bilaterally. No wheezing, rales, or rhonchi. Cardiovascular: S1, S2 regular. No murmurs, rubs, or gallops. Gastrointestinal: Abdomen soft, non-tender, non-distended. Normal bowel sounds. Neurologic: Cranial nerves II-XII are grossly intact bilaterally. No focal neurological deficits. Right lower extremity 2/5 strength, left 1/5. Skin: Warm, dry. Diffuse erythema with mild warm of upper back and bilateral lower extremities. Peeling skin on upper back. Extremities: Non-pitting bilateral edema. Psychiatric: Normal mood and affect. Results Labs 04/13/24 13:42 04/13/24 13:42 Labs: Laboratory Results - last 24 hr 04/13/24 04/13/24 04/13/24 13:42 14:40 15:37 MCV 105.2 H MCH 35.0 H MCHC 33.2 RDW 13.6 Plt Count 230 MPV 9.4 Immature Gran % (Auto) 0.5 H Neut % (Auto) 84.7 H Lymph % (Auto) 6.3 L [place] % (Auto) 8.2 Eos % (Auto) 0.0 Baso % (Auto) 0.3 Lymph # (Auto) 1.3 [place] # (Auto) 1.7 H Eos # (Auto) 0.0 Baso # (Auto) 0.1 Abs Immat Gran (auto) 0.11 H Absolute Neuts (auto) 17.2 H Absolute Nucleated RBC 0.000 Nucleated RBC % (auto) 0.0 Smear Tech's Comments VERIFIED ESR 84 H PT 15.1 H INR 1.3 H Anion Gap 15 Estim Creat Clear Calc 40.0 Estimated GFR 34 Random Glucose 109 Lactic Acid 1.7 Calcium 9.9 Magnesium 1.6 Total Bilirubin 1.2 H Direct Bilirubin 0.5 AST 54 H ALT 15 Alkaline Phosphatase 66 Troponin I High Sens 185.0 H* C-Reactive Protein 26.97 H B-Natriuretic Peptide 440 H Total Protein 7.0 Albumin 3.9 Urine Color Dark Yellow Urine Appearance Cloudy Urine pH 5.5 Ur Specific [place] 1.020 Urine Protein 100 (2+) H Urine Glucose (UA) Negative Urine Ketones Trace Urine Blood Large (3+) H Urine Nitrite Negative Ur Leukocyte Esterase Small (1+) H Urine RBC 3-5 H Urine WBC 0-5 Ur Squamous Epith Cells 11-20 Urine Bacteria None Seen Hyaline Casts 3-5 Granular Casts Present Influenza Type A (PCR) NEGATIVE Influenza Type B (PCR) NEGATIVE RSV RNA Qual (PCR) NEGATIVE SARS-CoV-2 RNA (RT-PCR) NEGATIVE 04/13/24 04/13/24 16:12 18:18 MCV MCH MCHC RDW Plt Count MPV Immature Gran % (Auto) Neut % (Auto) Lymph % (Auto) [place] % (Auto) Eos % (Auto) Baso % (Auto) Lymph # (Auto) [place] # (Auto) Eos # (Auto) Baso # (Auto) Abs Immat Gran (auto) Absolute Neuts (auto) Absolute Nucleated RBC Nucleated RBC % (auto) Smear Tech's Comments ESR PT INR Anion Gap Estim Creat Clear Calc Estimated GFR Random Glucose Lactic Acid Calcium Magnesium Total Bilirubin Direct Bilirubin AST ALT Alkaline Phosphatase Troponin I High Sens 479.1 H* D 552.1 H* C-Reactive Protein B-Natriuretic Peptide Total Protein Albumin Urine Color Urine Appearance Urine pH Ur Specific [place] Urine Protein Urine Glucose (UA) Urine Ketones Urine Blood Urine Nitrite Ur Leukocyte Esterase Urine RBC Urine WBC Ur Squamous Epith Cells Urine Bacteria Hyaline Casts Granular Casts Influenza Type A (PCR) Influenza Type B (PCR) RSV RNA Qual (PCR) SARS-CoV-2 RNA (RT-PCR) Imaging Radiologist's Impressions: Impressions Chest X-Ray 04/13/24 12:55 IMPRESSION: No acute abnormality. Electronically signed by: Jai Faye MD 04/13/2024 01:31 PM EDT RP Head CT 04/13/24 13:38 IMPRESSION: No acute intracranial finding. Electronically signed by: Mark Marti MD 04/13/2024 02:37 PM EDT RP Abdomen/Pelvis CT 04/13/24 16:45 IMPRESSION: 1. Patchy airspace consolidation of the left lung base suggestive of an infectious/inflammatory process. 2. No additional CT abnormalities of the abdomen and pelvis to explain the patient's symptoms. 3. There is a 2 cm mildly hyperattenuating nodule in the interpolar region of the left kidney. This may represent a proteinaceous/hemorrhagic cyst; however, further characterization with renal ultrasound is recommended to exclude a solid lesion. Electronically signed by: Azam Chadwick DO 04/13/2024 06:50 PM EDT RP Assessment and Plan (1) PATRICIA (acute kidney injury): Status: Acute (2) Pneumonia: Status: Acute Plan Pt is a 68-year-old female with a PMH significant for HLD, HTN, peripheral vascular disease s/p bilateral fem-pop bypass and stenting in 2018, hx of gout, and GERD who presents to the ED for evaluation of generalized weakness/fatigue x3 days and falls at home. Pt will be admitted to the hospital for treatment and further evaluation of generalized weakness with multiple falls at home in the setting of PATRICIA and community-acquired pneumonia. Community-acquired pneumonia CT showing patchy airspace consolidation of left lung base, weakness, fatigue, cough No sepsis: Leukocytosis, but no tachycardia, tachypnea, or fever; lactic acid WNL Patient given IVF and started on broad-spectrum antibiotics in the ED Will treat with ceftriaxone and azithromycin, started 04/13/2024 PATRICIA Creatinine 1.51 Likely in the setting of reduced p.o. intake while continuing diuretics Patient received 2L IVF in the ED Follow creatinine Elevated troponins Initial troponin 185.0 with repeats 479.1 and 552.1 Patient asymptomatic, EKG without ischemic changes Cardiology consulted, thought secondary to infection/demand No indication for heparin drip Cardiology consult Monitor on telemetry Generalized weakness and recurrent falls In the setting of above Similar episodes in the past Chronic lower extremity weakness with L>R PT evaluation Peripheral vascular disease Continue statin, aspirin Chronic lower leg edema Hold home furosemide, spironolactone due to PATRICIA Left renal nodule CT of abd/pelvis found 2 cm nodule in interpolar region of left kidney Recommendation is to F/U outpatient with renal ultrasound to exclude solid lesion Hxof gout Continue allopurinol GERD Continue PPI Full Code Attending:?Dr. Mueller DVT Prophylaxis: Lovenox Pt will require a hospitalization of at least two nights for treatment of?generalized weakness with multiple falls at home in the setting of PATRICIA and pneumonia that will require administration of IVF, IV antibiotics, close monitoring of cardiac function and labs, as well as PT evaluation for safe disposition home. Quality Stroke Does the patient have a stroke diagnosis?: No VTE Prior VTE?: No VTE Risk Level:: Medical - moderate - high VTE Device Contraindication: Treatment Not Indicated VTE Drug Contraindication: N/A - Med Ordered
--- NOTE | 2024-04-13 19:17 | PC.NURSE ---
pt is a 68 y.o female brought to dept via EMS after 2 falls at home. Pt is a&o x 4, independant with ADL's at baseline, calm and cooperative with care. Pt sts that she typically ambulates with a cane, but got up without it which she believed caused her first fall. pt then had a second fall while utilizing her cane in her bathroom, stated to EMS that she overall was feeling weak. Pt recently returned from [place], but denies sick contacts while away. Initial labs revealed an elevated WBC count of 20.3, with a critical troponin of 185. Follow up troponin @1612 479.1 and 552.1 @1818. No heparin at this time per cardiology. Imaging was obtained of head CXR, and CT of Abdomen/Pelvis- Imaging showed possible pneumonia. Pt rec IV Zosyn 4.5 as well as 1l Ns and 1L LR in dept. Plan is for admission and treatment for pneumonia pt has 20G IV in r-hand, and US guided 20g in l-lateral AC. Of note pt recently traveled to [place] and has area of healing sunburn on upper shoulders/back, and some areas of bruising on bilateral arms from falling.
--- NOTE | 2024-04-13 19:27 | PHA.MEDREC ---
Addendum entered by Anna Jenkins RPh 04/13/24 19:35: reviewed by [facility]. Original Note: Pharmacy Consult ? Medication Reconciliation Pharmacy has completed the medication reconciliation. Spoke to patient to confirm med list. Patient states she takes Aledronate every Saturday last does was 04/12/24.
[2024-04-13] MEDS: Enoxaparin Sodium 40 MG/0.4 ML SYRINGE SUBCUT (20:03)
[2024-04-13] MEDS: cefTRIAXone sodium 1 GM in 0.9 % Sodium Chloride 50 ML IV (21:05)
[2024-04-13] MEDS: Azithromycin 500 MG in 0.9 % Sodium Chloride 250 ML 125 MG IV (21:48)
--- NOTE | 2024-04-13 21:50 | PC.NURSE ---
pt continues to board in dept, awaiting med surg bed assignment- pt medicated with rocephin 1 gm, Azithromycin infusing per order.
[2024-04-14] VITALS (9 sets, daily range): BP systolic 130–150; BP diastolic 51–68; PULSE 73–82; RESP 16–20; TEMP 36.6–37.6; O2SAT 95–98; BMI 38.7
[2024-04-14] MEDS: 0.9 % Sodium Chloride Flush 3 ML SYRINGE IVFLUSH ×4 (00:24→20:21)
--- NOTE | 2024-04-14 02:49 | MHC.EDTECH ---
This Pct just assumed care of Patient at 0245 am ,vitals taken ,Patient bed pads change ,Patient was reposition and boosted up in bed ,fresh ice water given ,Patient socks was change to yellow since Patient had 2 falls at home yesterday ,Pure wick in Place and warm blanket given ,All safety measure in Place .Call durán within Pt reach .
--- NOTE | 2024-04-14 02:50 | PC.NURSE ---
Pt a&ox4, no signs of distress. Pt denies pain at this time Plan of care ongoing.
--- NOTE | 2024-04-14 04:11 | MHC.EDTECH ---
0400 rounding done ,vitals taken ,Patient awake resting with eyes closed ,no apparent distress noted ,Plan of care continue .
[2024-04-14 05:09] LABS: MANUAL DIFF FLAG NO
[2024-04-14 05:13] LABS: Basophils Absolute Auto 0.1 X10*3/uL (0.0-0.2); Basophils Percent Auto 0.3 % (0-2); Eosinophils Absolute Auto 0.1 X10*3/uL (0.0-0.4); Eosinophils Percent Auto 0.5 % (0-4); Hematocrit 31.4 % (37.0-47.0); Imm Gran Abs Auto 0.06 X10*3/uL (0.00-0.03); Imm Gran Pct Auto 0.4 % (0.0-0.4); Lymphocytes Absolute Auto 2.3 X10*3/uL (1.2-4.9); Mean Corpuscular HGB Conc 31.8 g/dl (31.0-35.0); Mean Corpuscular Hemoglobin 34.1 pg (27.0-33.0); Mean Corpuscular Volume 107.2 fL (80.0-98.0); Mean Platelet Volume 9.2 fL (9.4-12.3); Monocytes Absolute Auto 1.3 X10*3/uL (0.1-1.2); Monocytes Percent Auto 8.5 % (2-11); Neutrophils Absolute Auto 11.5 x10*3/uL (2.0-8.3); Neutrophils Percent Auto 75.3 % (45-73); Platelet Count 190 X10*3/uL (160-400); Red Blood Count 2.93 X10*6/uL (4.20-5.50); Red Cell Distribution Width 13.5 % (11.0-16.0); White Blood Count 15.3 X10*3/uL (4.8-10.8)
[2024-04-14 05:25] LABS: Anion Gap 14 (12-20); Blood Urea Nitrogen 19 mg/dL (9-16); Carbon Dioxide 25 mmol/L (22-29); Chloride 111 mmol/L (96-108); Estimated Glomerular Filt Rate 38; Glucose Random 97 mg/dL (60-115); Potassium 4.2 mmol/L (3.3-5.1); Sodium 146 mmol/L (135-145)
[2024-04-14] MEDS: Omeprazole 40 MG CAPSULE.DR PO (06:29)
--- NOTE | 2024-04-14 06:31 | PC.NURSE ---
Pt medicated per [facility] plan of care ongoing.
--- NOTE | 2024-04-14 06:33 | MHC.EDTECH ---
0600 Rounding done,Patient awake watching television ,vitals taken ,pt was reposition and boosted up in bed ,Patient has not void since this pct assumed care ,Bladder scan done ,pt had 316 ml in bladder ,RN Arely aware .
[2024-04-14] MEDS: Ascorbic Acid 500 MG TABLET 1000 MG PO (09:25)
[2024-04-14] MEDS: Multivitamin TABLET 1 TAB PO (09:25)
[2024-04-14] MEDS: Metoprolol Succinate ER 50 MG TAB.ER.24H PO (09:25)
[2024-04-14] MEDS: Atorvastatin Calcium 20 MG TABLET PO (09:25)
[2024-04-14] MEDS: Aspirin Enteric Coated 325 MG TABLET.DR PO (09:29)
[2024-04-14] MEDS: allopurinoL 100 MG TABLET 200 MG PO (09:29)
--- NOTE | 2024-04-14 12:31 | MHC.CM.PN ---
PT LIVES WITH HAS OWN RIDE HOME IS INDEPEDENT DC PLAN HOME NO SERVICES
--- NOTE | 2024-04-14 13:00 | CA_ITS ---
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 There is mildly increased left ventricular wall thickness. The visually estimated ejection fraction is between 65-70%. - Diastolic function is normal for age. - Normal right ventricular cavity size and systolic function. Findings Procedure Information Contrast agent, definity, is being given per protocol without apparent complications. Left Ventricle Normal left ventricular size and systolic function. There is mildly increased left ventricular wall thickness. The visually estimated ejection fraction is between 65-70%. There is no evidence of regional wall motion abnormalities. Diastolic function is normal for age. Right Ventricle Normal right ventricular cavity size and systolic function. Atria The left atrium is normal in size. Aortic Valve There is a normal trileaflet aortic valve. There is mild calcification of the aortic valve. There is no aortic valve stenosis. There is no aortic valve regurgitation. Mitral Valve The mitral valve appears normal. There is no mitral valve regurgitation. There is no mitral valve stenosis. Pulmonic Valve The pulmonic valve is likely normal. Tricuspid Valve Normal tricuspid valve structure. There is no tricuspid valve regurgitation. Normal right atrial pressure. There is no evidence of pulmonary hypertension. Great Vessels All visible segments of the aorta are normal in size. Venous The inferior vena cava is normal in size and collapses greater than 50% with inspiration. Pericardium/Pleural There is no evidence of pericardial effusion. Prior Study Comparison No prior study available for comparison. Measurements 2D Linear Measurements IVSd: 1.14 0.6-0.9/0.6-1.0 cm LVIDd: 4.43 3.9-5.3/4.2-5.9 cm LVIDd Index: 2.23 2.4-3.2/2.2-3.1 cm/m2 LVIDs: 3.20 2.0-3.6 cm LVPWd: 1.09 0.7-1.1 cm Ao Root: 3.00 2.1-3.5 cm LA Diam: 3.70 2.7-3.8/3.0-4.0 cm LAIDs Index: 1.86 1.5-2.3 cm/m2 LV Mass: 216.81 67-162/88-224 g LV Mass Index: 108.95 43-95/49-115 g/m2 LVOT Diam: 2.10 3.0+(-)1.3 cm Mitral Valve MV Pk E: 0.65 MV PK A: 0.60 MV Decel Time: 221.00 E/A: 1.10 E'Lateral: 9.36 E'Medial: 5.55 E/E' Med: 11.70 E/E' Lat: 7.00 PHT: 65.00 MVA PHT: 3.38 Decel [place]: 2.95 Aortic Valve AoV Pk Lemuel: 1.50 AoV Mn Lemuel: 0.98 AoV VTI: 0.33 AoV Pk Grad: 9.00 Aov Mn Grad: 5.00 ARMANDO Cont.VTI: 2.38 LVOT LVOT Pk Lemuel: 1.20 LVOT Mn Lemuel: 0.68 LVOT VTI: 0.23 LVOT Pk Grad: 6.00 LVOT Mn Grad: 2.00 LVOT Diam: 2.10 LVOT Area: 3.46 Diastolic Function MV Pk E: 0.65 MV Pk A: 0.60 E/A: 1.10 E'Medial: 5.55 E/E' Med: 11.70 E' Laterial: 9.36 E/E' Lat: 7.00 Right Ventricle TAPSE (mm): 26.00 Tricuspid Valve TR Pk Lemuel: 2.16 TR Pk Grad: 19.00 RA Press: 3.00 RVSP: 22.00 Great Vessels Aorta Ao Root-2D: 3.00 2.0-3.7 cm Ao Asc: 3.20 2.1-3.4 cm Pulmonary Valve PV Pk Lemuel: 0.86 Peak PV Grad: 3.00 Updated in Other Vendor System with Status of Final Adolfo Begum MD electronically signed on 04/14/2024 7:49:56 PM with status of Final
--- NOTE | 2024-04-14 14:10 | P.PNIM_ITS ---
Subjective Subjective Date of Service: 04/14/24 Interval History: cap,generalsied weakness ,fall Review of Systems feels sob with minimal excersion,has cough no fevers Physical Exam 2 Vital Signs: Vital Signs: Last Vital Signs Temp 98.1 F 04/14/24 09:37 Pulse 80 04/14/24 10:20 Resp 18 04/14/24 09:37 BP 145/66 H 04/14/24 10:20 Pulse Ox 98 04/14/24 10:20 O2 Del Method Room Air 04/14/24 09:37 BMI result Body Mass Index 37.8 Appearance: Alert.? Oriented X3.sob. cvs: rrr, [id number] , no murmur res: air entry diminshed at bases left side >right. abd: no rebound or guarding ,nt, bs present. ext pulses present , no cyanosis. neuro: axo3 , nonfocal. Objective Data Active Medications Acetaminophen (Acetaminophen 325 Mg Tablet) 650 mg PO Q6H PRN PRN Reason: Pain, Mild (Pain Scale 1-3), fever or headache Allopurinol (Allopurinol 100 Mg Tablet) 200 mg PO DAILY [facility] Last Admin: 04/14/24 09:29 Dose: 200 mg Documented By: LEONARDO Ascorbic Acid (Ascorbic Acid 500 Mg Tablet) 1,000 mg PO DAILY [facility] Last Admin: 04/14/24 09:25 Dose: 1,000 mg Documented By: LEONARDO Aspirin (Aspirin Enteric Coated 325 Mg Tablet.) 325 mg PO DAILY [facility] Last Admin: 04/14/24 09:29 Dose: 325 mg Documented By: LEONARDO Atorvastatin Calcium (Atorvastatin Calcium 20 Mg Tablet) 20 mg PO DAILY [facility] Last Admin: 04/14/24 09:25 Dose: 20 mg Documented By: LEONARDO Calcium Carbonate (Calcium Carbonate 750 Mg Tab.Chew) 750 mg PO Q4H PRN PRN Reason: Heartburn Enoxaparin Sodium (Enoxaparin Sodium 40 Mg/0.4 Ml Syringe) 40 mg SUBCUT Q24H [facility] Last Admin: 04/13/24 20:03 Dose: 40 mg Documented By: MANISHA Ceftriaxone Sodium 1 gm/ (Sodium Chloride) 50 mls @ 100 mls/hr IV Q24H [facility] Last Infusion: 04/13/24 21:35 Dose: Infused Documented By: MANISHA Azithromycin 500 mg/ Sodium (Chloride) 250 mls @ 125 mls/hr IV Q24H [facility] Last Admin: 04/13/24 21:48 Dose: 125 mls/hr Documented By: MANISHA Magnesium Hydroxide (Milk Of Magnesia 30 Ml Oral.Susp) 30 ml PO DAILY PRN PRN Reason: Constipation Melatonin (Melatonin 3 Mg Tablet) 6 mg PO BEDTIME PRN PRN Reason: Insomnia Metoprolol Succinate (Metoprolol Succinate Er 50 Mg Tab.Er.24h) 50 mg PO DAILY [facility]; Protocol Last Admin: 04/14/24 09:25 Dose: 50 mg Documented By: LEONARDO Multivitamins/Vitamin C (Multivitamin Tablet) 1 tab PO DAILY [facility] Last Admin: 04/14/24 09:25 Dose: 1 tab Documented By: LEONARDO Omeprazole (Omeprazole 40 Mg Capsule.Dr) 40 mg PO DAILY@0630 [facility] Last Admin: 04/14/24 06:29 Dose: 40 mg Documented By: BALDOMERO Ondansetron HCl (Ondansetron Hcl 4 Mg/2 Ml Vial) 4 mg IVPUSH Q8H PRN PRN Reason: Nausea and Vomiting Sodium Chloride (0.9 % Sodium Chloride Flush 3 Ml Syringe) 3 ml IVFLUSH QSHIFT [facility] Last Admin: 04/14/24 09:29 Dose: 3 ml Documented By: LEONARDO Labs 04/14/24 05:03 04/14/24 05:03 Labs: Laboratory Results - last 24 hr 04/13/24 04/13/24 04/13/24 13:42 14:40 15:37 MCV MCH MCHC RDW Plt Count MPV Immature Gran % (Auto) 0.5 H Neut % (Auto) 84.7 H Lymph % (Auto) 6.3 L [place] % (Auto) 8.2 Eos % (Auto) 0.0 Baso % (Auto) 0.3 Lymph # (Auto) 1.3 [place] # (Auto) 1.7 H Eos # (Auto) 0.0 Baso # (Auto) 0.1 Abs Immat Gran (auto) 0.11 H Absolute Neuts (auto) 17.2 H Absolute Nucleated RBC 0.000 Nucleated RBC % (auto) 0.0 Smear Tech's Comments VERIFIED ESR 84 H Anion Gap Estim Creat Clear Calc Estimated GFR Random Glucose Lactic Acid 1.7 Calcium Troponin I High Sens 185.0 H* B-Natriuretic Peptide 440 H Urine Color Dark Yellow Urine Appearance Cloudy Urine pH 5.5 Ur Specific [place] 1.020 Urine Protein 100 (2+) H Urine Glucose (UA) Negative Urine Ketones Trace Urine Blood Large (3+) H Urine Nitrite Negative Ur Leukocyte Esterase Small (1+) H Urine RBC 3-5 H Urine WBC 0-5 Ur Squamous Epith Cells 11-20 Urine Bacteria None Seen Hyaline Casts 3-5 Granular Casts Present Influenza Type A (PCR) NEGATIVE Influenza Type B (PCR) NEGATIVE RSV RNA Qual (PCR) NEGATIVE SARS-CoV-2 RNA (RT-PCR) NEGATIVE 04/13/24 04/13/24 04/14/24 16:12 18:18 05:03 MCV 107.2 H MCH 34.1 H MCHC 31.8 RDW 13.5 Plt Count 190 MPV 9.2 L Immature Gran % (Auto) 0.4 Neut % (Auto) 75.3 H Lymph % (Auto) 15.0 L [place] % (Auto) 8.5 Eos % (Auto) 0.5 Baso % (Auto) 0.3 Lymph # (Auto) 2.3 [place] # (Auto) 1.3 H Eos # (Auto) 0.1 Baso # (Auto) 0.1 Abs Immat Gran (auto) 0.06 H Absolute Neuts (auto) 11.5 H Absolute Nucleated RBC 0.000 Nucleated RBC % (auto) 0.0 Smear Tech's Comments ESR Anion Gap 14 Estim Creat Clear Calc 44.0 Estimated GFR 38 Random Glucose 97 Lactic Acid Calcium 9.0 D Troponin I High Sens 479.1 H* D 552.1 H* B-Natriuretic Peptide Urine Color Urine Appearance Urine pH Ur Specific [place] Urine Protein Urine Glucose (UA) Urine Ketones Urine Blood Urine Nitrite Ur Leukocyte Esterase Urine RBC Urine WBC Ur Squamous Epith Cells Urine Bacteria Hyaline Casts Granular Casts Influenza Type A (PCR) Influenza Type B (PCR) RSV RNA Qual (PCR) SARS-CoV-2 RNA (RT-PCR) Microbiology Microbiology Results: Microbiology 04/13/24 Unknown Urine Culture - Preliminary Urine clean catch - Clean Catch Midstream No growth to date. Assessment and Plan (1) Lower extremity weakness: Status: Acute (2) PATRICIA (acute kidney injury): Status: Acute (3) Pneumonia: Status: Acute Assessment and Plan: 68-year-old female with a PMH significant for HLD, HTN, peripheral vascular disease s/p bilateral fem-pop bypass and stenting in 2018, hx of gout, and GERD who presents to the ED for evaluation of generalized weakness/fatigue x3 days and falls at home. Pt will be admitted to the hospital for treatment and further evaluation of generalized weakness with multiple falls at home in the setting of PATRICIA and community-acquired pneumonia. Community-acquired pneumonia CT showing patchy airspace consolidation of left lung base, weakness, fatigue, cough Leukocytosis improving ,no fever blood cultures pending continue with ceftriaxone and azithromycin, started 04/13/2024 PATRICIA imrpoving to 1.37 with hydration moniter renal fucntion/electrolytes Elevated troponins Initial troponin 185.0- 479.1-552.1 Patient asymptomatic, EKG without ischemic changes Cardiology consulted, thought secondary to infection/demand added echo. Generalized weakness and recurrent falls( possible multifactorial-In the setting of above). Similar episodes in the past Chronic lower extremity weakness with L>R PT evaluation Peripheral vascular disease Continue statin, aspirin Chronic lower leg edema Hold home furosemide, spironolactone due to PATRICIA Left renal nodule CT of abd/pelvis found 2 cm nodule in interpolar region of left kidney F/U outpatient with renal ultrasound to exclude solid lesion Hxof gout Continue allopurinol GERD Continue PPI Full Code DVT Prophylaxis: Lovenox ongoing hospitalization need for treatment of?generalized weakness with multiple falls at home in the setting of PATRICIA and pneumonia that will require administration of IVF, IV antibiotics, close monitoring of cardiac function and labs, as well as str need. Quality Stroke Does the patient have a stroke diagnosis?: No VTE Prior VTE?: No VTE Risk Level:: Medical - moderate - high VTE Device Contraindication: Treatment Not Indicated VTE Drug Contraindication: N/A - Med Ordered
--- NOTE | 2024-04-14 16:30 | P.CONCA_ITS ---
History of Present Illness History of Present Illness Date of Service: 04/14/24 Chief complaint: Weakness Narrative: 68-year-old here for weakness and ?sepsis. She has left lung infiltrate and is being treated as pneumonia. She has mildly elevated troponins. she has h/o aortobifeb bypass. She has no CP and SOB. ECG has no dynamic changes. High sensitivity troponin levels peaked at 500. [facility] Past Medical History Medical History On beta cj at home GERD (gastroesophageal reflux disease) Rheumatoid arthritis Graves disease DJD (degenerative joint disease) of cervical spine Elevated cholesterol Peripheral vascular disease Surgical History Surgical History S/P femoral-femoral bypass surgery Hx of left knee surgery History of bladder surgery Hx of tubal ligation Hx of tonsillectomy Hx of appendectomy Hx of colonoscopy Social History Social History Household Members: Spouse Housing: [facility] Do you presently have visiting nurse or other home services: No Patient Tobacco Use Status: Former Tobacco user Tobacco use type: Cigarette service: No Meds Allergies Allergy/AdvReac Type Severity Reaction Status Date / Time rofecoxib [From VIOXX] Allergy Severe ANAPHYLAXIS Verified 04/13/24 12:23 clopidogrel [From PLAVIX] Allergy Unknown HIUES Verified 04/13/24 12:23 lisinopril [LISINOPRIL] Allergy Unknown ANGIOEDEMA Verified 04/13/24 12:23 Active Medications: Current Medications Acetaminophen (Acetaminophen 325 Mg Tablet) 650 mg PO Q6H PRN PRN Reason: Pain, Mild (Pain Scale 1-3), fever or headache Allopurinol (Allopurinol 100 Mg Tablet) 200 mg PO DAILY [facility] Last Admin: 04/14/24 09:29 Dose: 200 mg Ascorbic Acid (Ascorbic Acid 500 Mg Tablet) 1,000 mg PO DAILY [facility] Last Admin: 04/14/24 09:25 Dose: 1,000 mg Aspirin (Aspirin Enteric Coated 325 Mg Tablet.) 325 mg PO DAILY [facility] Last Admin: 04/14/24 09:29 Dose: 325 mg Atorvastatin Calcium (Atorvastatin Calcium 20 Mg Tablet) 20 mg PO DAILY [facility] Last Admin: 04/14/24 09:25 Dose: 20 mg Calcium Carbonate (Calcium Carbonate 750 Mg Tab.Chew) 750 mg PO Q4H PRN PRN Reason: Heartburn Enoxaparin Sodium (Enoxaparin Sodium 40 Mg/0.4 Ml Syringe) 40 mg SUBCUT Q24H [facility] Last Admin: 04/13/24 20:03 Dose: 40 mg Ceftriaxone Sodium 1 gm/ (Sodium Chloride) 50 mls @ 100 mls/hr IV Q24H [facility] Last Infusion: 04/13/24 21:35 Dose: Infused Azithromycin 500 mg/ Sodium (Chloride) 250 mls @ 125 mls/hr IV Q24H [facility] Last Infusion: 04/13/24 23:48 Dose: Infused Influenza Virus Vaccine (Flu Vacc [id number](6mos Up)/Pf 0.5 Ml Syringe) 0.5 ml IM .ONCE ONE Stop: 04/15/24 10:01 Magnesium Hydroxide (Milk Of Magnesia 30 Ml Oral.Susp) 30 ml PO DAILY PRN PRN Reason: Constipation Melatonin (Melatonin 3 Mg Tablet) 6 mg PO BEDTIME PRN PRN Reason: Insomnia Metoprolol Succinate (Metoprolol Succinate Er 50 Mg Tab.Er.24h) 50 mg PO DAILY [facility]; Protocol Last Admin: 04/14/24 09:25 Dose: 50 mg Multivitamins/Vitamin C (Multivitamin Tablet) 1 tab PO DAILY [facility] Last Admin: 04/14/24 09:25 Dose: 1 tab Omeprazole (Omeprazole 40 Mg Capsule.Dr) 40 mg PO DAILY@0630 [facility] Last Admin: 04/14/24 06:29 Dose: 40 mg Ondansetron HCl (Ondansetron Hcl 4 Mg/2 Ml Vial) 4 mg IVPUSH Q8H PRN PRN Reason: Nausea and Vomiting Sodium Chloride (0.9 % Sodium Chloride Flush 3 Ml Syringe) 3 ml IVFLUSH QSHIFT [facility] Last Admin: 04/14/24 09:29 Dose: 3 ml Home Medications ?Medication ?Instructions ?Recorded ?Confirmed ?Last Taken ?Type acetaminophen 650 mg 650 mg PO Q12H PRN Pain 05/02/20 04/13/24 04/12/24 History tablet,extended release (Arthritis Pain Reliever) ascorbic acid (vitamin C) 1,000 mg 1,000 mg PO DAILY 05/02/20 04/13/24 04/12/24 History tablet (Vitamin C) atorvastatin 20 mg tablet 20 mg PO DAILY 05/02/20 04/13/24 04/12/24 History furosemide 20 mg tablet 20 mg PO DAILY 05/02/20 04/13/24 04/12/24 History spironolactone 50 mg tablet 50 mg PO DAILY 05/02/20 04/13/24 04/12/24 History vitamin B complex 1 tab PO DAILY 05/02/20 04/13/24 04/12/24 History alendronate 70 mg tablet 70 mg PO STAPLES 06/12/22 04/13/24 04/12/24 History allopurinol 100 mg tablet 200 mg PO DAILY 06/12/22 04/13/24 04/12/24 History aspirin 325 mg tablet,delayed 325 mg PO DAILY 06/12/22 04/13/24 04/12/24 History release metoprolol succinate 50 mg 50 mg PO DAILY 06/12/22 04/13/24 04/12/24 History tablet,extended release 24 hr omeprazole 40 mg capsule,delayed 40 mg PO DAILY@0630 04/13/24 04/13/24 04/12/24 History release Physical Exam 2 Vital Signs: Vital Signs: Last Vital Signs Temp 97.9 F 04/14/24 15:16 Pulse 81 04/14/24 15:16 Resp 20 04/14/24 15:16 BP 141/65 H 04/14/24 15:16 Pulse Ox 96 04/14/24 15:16 O2 Del Method Room Air 04/14/24 15:16 BMI result Body Mass Index 38.7 GENERAL APPEARANCE: in no acute distress, pleasant. NECK: no carotid bruit, no jugular venous distention. SKIN: no suspicious lesions, warm and dry. HEART: no murmurs, regular rate and rhythm. LUNGS: clear to auscultation bilaterally. ABDOMEN: soft, nontender. EXTREMITIES: no edema. PERIPHERAL PULSES: equal. NEUROLOGIC: No gross deficits, AAO X 3 Objective Labs and Meds 04/14/24 05:03 04/14/24 05:03 Lab results: Laboratory Results - last 24 hr 04/13/24 04/13/24 04/14/24 16:12 18:18 05:03 WBC 15.3 H RBC 2.93 L Hgb 10.0 L Hct 31.4 L MCV 107.2 H MCH 34.1 H MCHC 31.8 RDW 13.5 Plt Count 190 MPV 9.2 L Immature Gran % (Auto) 0.4 Neut % (Auto) 75.3 H Lymph % (Auto) 15.0 L [place] % (Auto) 8.5 Eos % (Auto) 0.5 Baso % (Auto) 0.3 Lymph # (Auto) 2.3 [place] # (Auto) 1.3 H Eos # (Auto) 0.1 Baso # (Auto) 0.1 Abs Immat Gran (auto) 0.06 H Absolute Neuts (auto) 11.5 H Absolute Nucleated RBC 0.000 Nucleated RBC % (auto) 0.0 Sodium 146 H Potassium 4.2 Chloride 111 H Carbon Dioxide 25 Anion Gap 14 BUN 19 H Creatinine 1.37 Estim Creat Clear Calc 44.0 Estimated GFR 38 Random Glucose 97 Calcium 9.0 D Troponin I High Sens 479.1 H* D 552.1 H* Imaging Radiologist's impression: Impressions Abdomen/Pelvis CT 04/13/24 16:45 IMPRESSION: 1. Patchy airspace consolidation of the left lung base suggestive of an infectious/inflammatory process. 2. No additional CT abnormalities of the abdomen and pelvis to explain the patient's symptoms. 3. There is a 2 cm mildly hyperattenuating nodule in the interpolar region of the left kidney. This may represent a proteinaceous/hemorrhagic cyst; however, further characterization with renal ultrasound is recommended to exclude a solid lesion. Electronically signed by: Azam Chadwick DO 04/13/2024 06:50 PM EDT RP Assessment and Plan (1) Pneumonia: Status: Acute (2) Lower extremity weakness: Status: Acute (3) Elevated troponin: Status: Acute Plan Pleasant 68-year-old female with known history of peripheral vascular disease with aortobifem bypass surgery in the past presenting with bilateral leg weakness and overall feeling unwell and has been diagnosed with pneumonia. She has mildly elevated troponin levels in the setting. No chest discomfort shortness of breath currently. EKGs not showing any dynamic changes. Check echocardiogram to assess LV function. If there is LV dysfunction then would consider further workup with diagnostic angiography. If normal ejection fraction without any wall motion abnormalities then potentially workup as outpatient. Thank you for allowing me to participate in the care of your patient. Please feel free to contact me if you have any questions. Procedures Date of Service Date of Service: 04/14/24
[2024-04-14] MEDS: Enoxaparin Sodium 40 MG/0.4 ML SYRINGE SUBCUT (17:34)
[2024-04-14] MEDS: Acetaminophen 325 MG TABLET 650 MG PO (20:12)
[2024-04-14] MEDS: cefTRIAXone sodium 1 GM in 0.9 % Sodium Chloride 50 ML IV (20:15)
[2024-04-14] MEDS: Azithromycin 500 MG in 0.9 % Sodium Chloride 250 ML 125 MG IV (21:03)
[2024-04-14 22:13] LABS: Lyme Abs Screen <0.90 index
[2024-04-14 23:02] LABS: A. Phagocytphilium DNA,RT-PCR NOT DETECTED (NOT DETECTED); Babesia Microti DNA, RT-PCR NOT DETECTED (NOT DETECTED); Borrelia Miyamotoi,DNA RT-PCR NOT DETECTED (NOT DETECTED); E.Chaffeensis DNA RT-PCR NOT DETECTED (NOT DETECTED); Lyme(Borrelia ssp)DNA RT-PCR NOT DETECTED (NOT DETECTED)
[2024-04-15] MEDS: diphenhydrAMINE HCL 50 MG/ML VIAL 25 MG IVPUSH (01:06)
[2024-04-15 03:17] VITALS: BP 136/58; PULSE 75; RESP 18; TEMP 37.2; O2SAT 97
[2024-04-15] MEDS: Omeprazole 40 MG CAPSULE.DR PO (05:37)
[2024-04-15 07:22] VITALS: BP 135/64; PULSE 75; RESP 18; TEMP 36.9; O2SAT 96
[2024-04-15] MEDS: Aspirin Enteric Coated 325 MG TABLET.DR PO (09:14)
[2024-04-15] MEDS: Ascorbic Acid 500 MG TABLET 1000 MG PO (09:14)
[2024-04-15] MEDS: 0.9 % Sodium Chloride Flush 3 ML SYRINGE IVFLUSH ×2 (09:14→15:14)
[2024-04-15 09:15] VITALS: BP 135/64; PULSE 74
[2024-04-15] MEDS: allopurinoL 100 MG TABLET 200 MG PO (09:15)
[2024-04-15] MEDS: Atorvastatin Calcium 20 MG TABLET PO (09:15)
[2024-04-15] MEDS: Metoprolol Succinate ER 50 MG TAB.ER.24H PO (09:15)
[2024-04-15] MEDS: Multivitamin TABLET 1 TAB PO (09:16)
[2024-04-15] MEDS: Flu Vacc TS2024-25(6mos up)/PF 0.5 ML SYRINGE IM (09:18)
--- NOTE | 2024-04-15 10:27 | PM.DS ---
DS: Providers Provider Date of Service: 04/16/24 Date of admission: 04/13/24 19:10 Date of discharge: 04/16/24 Primary care physician: Laci Kohler DO Consults: 04/13/24 20:59 Consult to Cardiology Routine Consulting Provider: [facility] Reason for consultation: Elevated troponins w/delta Attending physician on discharge: Mili Granda Discharging clinician: Mili Granda DS: Diagnosis Discharge Diagnosis (1) Pneumonia: Status: Acute (2) Lower extremity weakness: Status: Acute (3) Elevated troponin: Status: Acute DS: Summary Hospital Course Hospital Course: HPI:68-year-old female with a PMH significant for HLD, HTN, peripheral vascular disease s/p bilateral fem-pop bypass and stenting in 2018, hx of gout, and GERD who presents to the ED for evaluation of generalized weakness/fatigue x3 days and falls at home. Pt states she fell earlier this morning when she attempted to get out of the bed. Needed assistance getting off the floor. Denies headstrike or LOC. No lightheadedness or dizziness. States ?my legs just gave?. A half hour latter pt reports had an additional fall while on the toilet that again required assistance in getting up. Patient farrah has just recently returned from [place], where she admits to getting sunburned on her legs and upper back. States he has been feeling fatigued for the past 2 days, and not eating much for the past 4-5 days, though reports has been drinking normally. Patient also states he has had a long history of chronic left lower extremity weakness for which she has just been re-evaluated by Dr. Shannan Torres at [facility] heart and vascular. Reports has had at least 2 prior similar episodes with last 1 6 months ago when she has had weakness with falls at home that required EMS assistance in getting her up. Patient denies any stroke-like symptoms including new hemiparesis, difficulty speaking, fogginess in thinking, or confusion. Denies significant SOB or STEVE, reports has chronic cough that is mostly nonproductive and around baseline. Denies chest pain or pressure. No fever, chills, nausea, vomiting, diarrhea, abdominal pain. Uses a cane at home for ambulation at baseline, though reports has been considering getting a walker. In the ED pt with low-grade fever of 99.3, and slightly soft BP as low as 104/30, satting at 93% on RA. Labs were significant for leukocytosis of 20.3, ESR 84, sodium 147, creatinine 1.51(baseline around 1.01), bilirubin 1.2, AST 54, initial troponin 185.0 with repeats 479.1 and 552.1; CRP 26.97, BNP 440. UA not convincing for acute UTI. CXR showed no acute abnormality. CT?of abdomen/pelvis found patchy airspace consolidation of left lung base suggestive of infectious/inflammatory process, though negative for acute abdomen and pelvis. Also found 2 cm mildly hyperattenuating nodule of left kidney. EKG demonstrated normal sinus rhythm with RBBB, and Qc of 534, but no evidence of significant ST elevations or depressions. Repeat EKG similar to previous, though QTc decreased to 486. Pt was treated with Darian IVF and Zosyn. Pt will be admitted to the hospital for treatment and further evaluation of generalized weakness with multiple falls at home in the setting of DEEPTHI and community-acquired pneumonia. Hospital course: Patient admitted to the hospital because status post fall and generalized weakness found to have leukocytosis, creatinine of 1.5( DEEPTHI )and chest imaging showed- CAP on admission started on IV antibiotics (ceftriaxone/azithromycin), blood cultures sent, received fluid, diuretics placed on hold: With above supportive care patient seems to be improved, no shortness a breath or hypoxia. Leukocytosis improving, no fever, blood culture negative at 48 hours. Patient is antibiotics switched to p.o. Ceftin 500 mg p.o. b.i.d., azithromycin p.o. 500 mg daily for 6 more days. Consider outpatient chest imaging in 3-4 weeks to see resolution pneumonia. Patient has mild hyponatremia which is improving with p.o. hydration. Monitor BMP outpatient. Hold Lasix for 2 more days. Introduce back Lasix as kidney function and electrolytes allow. Left renal nodule CT of abd/pelvis found 2 cm nodule in interpolar region of left kidney F/U outpatient with renal ultrasound to exclude solid lesion. Elevated troponins Initial troponin 185.0- 479.1-552.1 Patient asymptomatic, EKG without ischemic changes Cardiology consulted, thought secondary to infection/demand echo seems fine ef 65-70% .There is no evidence of regional wall motion abnormalities. Diastolic function is normal for age. follow up with cardiology outpatient . Patient was seen by PT recommended rehab. plan: complete p.o. Ceftin 500 mg p.o. b.i.d., azithromycin p.o. 500 mg daily for 6 more days. Consider outpatient chest imaging in 3-4 weeks to see resolution pneumonia. Patient has mild hyponatremia which is improving with p.o. hydration. Monitor BMP outpatient. Hold Lasix for 2 more days. Introduce back Lasix as kidney function and electrolytes allows. Left renal nodule-F/U outpatient with renal ultrasound to exclude solid lesion. Elevated troponins-ef seems fine ,follow up with cardiology outpatient .cardiology may arrange their own appointment. Above management discussed with the patient detail length she understand and in agreement with the above plan, time spent 40 minute. Time Attestation Total time managing care of this patient today: 40 mintues. Discharge Coordination Time (in mins): 40min Quality: Safe Use of Opioids Does Pt have an Active Cancer Diagnosis on the Problem List?: No Quality: Stroke Does the patient have a stroke diagnosis?: No Physical Exam Vital Signs: Vital Signs: Last Vital Signs Temp 98.4 F 04/15/24 07:22 Pulse 74 04/15/24 09:15 Resp 18 04/15/24 07:22 BP 135/64 04/15/24 09:15 Pulse Ox 96 04/15/24 07:22 O2 Del Method Room Air 04/15/24 07:22 BMI result Body Mass Index 38.7 Appearance: Alert.? Oriented X3. cvs: rrr, [id number] , no murmur res: air entry diminshed at bases left side >right. abd: no rebound or guarding ,nt, bs present. ext pulses present , no cyanosis. neuro: axo3 , nonfocal. DS: Data Data Completed and Pending Labs on day of discharge: Laboratory Results - last 24 hr 04/13/24 04/13/24 13:42 14:40 A.phagocytophil DNA PCR NOT DETECTED Babesia microti DNA PCR NOT DETECTED Borrelia sp DNA (PCR) NOT DETECTED Lyme Screen IgG & IgM <0.90 Borrelia miyamotoi (PCR) NOT DETECTED E.chaffeensis DNA (PCR) NOT DETECTED Tick-borne Disease PCR SEE NOTE Preliminary micro results at discharge 04/13/24 14:40 Blood Culture - Preliminary Blood - Venous No growth after 24 hours. 04/13/24 14:40 Blood Culture - Preliminary Blood - Venous No growth after 24 hours. 04/13/24 Unknown Urine Culture - Preliminary Urine clean catch - Clean Catch Midstream No growth to date. Imaging Chest x-ray: Radiologist's impression: ITS Impressions Chest X-Ray 04/13/24 12:55 IMPRESSION: No acute abnormality. Electronically signed by: Jai Faye MD 04/13/2024 01:31 PM EDT RP Head CT 04/13/24 13:38 IMPRESSION: No acute intracranial finding. Electronically signed by: Mrak Marti MD 04/13/2024 02:37 PM EDT RP Abdomen/Pelvis CT 04/13/24 16:45 IMPRESSION: 1. Patchy airspace consolidation of the left lung base suggestive of an infectious/inflammatory process. 2. No additional CT abnormalities of the abdomen and pelvis to explain the patient's symptoms. 3. There is a 2 cm mildly hyperattenuating nodule in the interpolar region of the left kidney. This may represent a proteinaceous/hemorrhagic cyst; however, further characterization with renal ultrasound is recommended to exclude a solid lesion. Electronically signed by: Azam Chadwick DO 04/13/2024 06:50 PM EDT RP Discharge Plan Discharge Anticipated Discharge Date/Time: 04/15/24 10:16 Patient Disposition: er [facility] Discharge Diagnosis: deepthi,pneumonia Referrals: Ye Macario [Outside] - 1 Week Laci Kohler DO [Primary Care Provider] - 1 Week Discharge Medications: New cefuroxime axetil 500 mg tablet 500 mg PO BID Qty: 12 0RF azithromycin 500 mg tablet 500 mg PO DAILY 6 Days Qty: 6 0RF Continued atorvastatin 20 mg tablet 20 mg PO DAILY spironolactone 50 mg tablet 50 mg PO DAILY ascorbic acid (vitamin C) [Vitamin C] 1,000 mg Tablet 1,000 mg PO DAILY acetaminophen [Arthritis Pain Reliever] 650 mg Tablet Extended Release 650 mg PO Q12H PRN (Reason: Pain) vitamin B complex Tablet 1 tab PO DAILY omeprazole 40 mg capsule,delayed release(DR/EC) 40 mg PO DAILY@0630 alendronate 70 mg tablet 70 mg PO STAPLES allopurinol 100 mg tablet 200 mg PO DAILY metoprolol succinate 50 mg tablet extended release 24 hr 50 mg PO DAILY aspirin 325 mg tablet,delayed release (DR/EC) 325 mg PO DAILY Held furosemide 20 mg tablet 20 mg PO DAILY Hold Instructions: Resume on 04/17/24. Discharge Orders: Discharge Order (Routine); Ordered 04/16/24 Ordered By: Mili Granda Diet: Advance to usual diet Activity on Discharge: As tolerated Stand Alone Forms: Patient Portal Discharge page Print Language: Arabic Care Plan Goals: Patient admitted to the hospital because status post fall and generalized weakness found to have leukocytosis, creatinine of 1.5( DEEPTHI )and chest imaging showed- CAP on admission started on IV antibiotics (ceftriaxone/azithromycin), blood cultures sent, received fluid, diuretics placed on hold: With above supportive care patient seems to be improved, no shortness a breath or hypoxia. Leukocytosis improving, no fever, blood culture negative at 48 hours. Patient is antibiotics switched to p.o. Ceftin 500 mg p.o. b.i.d., azithromycin p.o. 500 mg daily for 6 more days. Consider outpatient chest imaging in 3-4 weeks to see resolution pneumonia. Patient has mild hyponatremia which is improving with p.o. hydration. Monitor BMP outpatient. Hold Lasix for 2 more days. Introduce back Lasix as kidney function and electrolytes allow. Patient was seen by PT recommended rehab. Above management discussed with the patient detail length she understand and in agreement with the above plan, time spent 40 minute. Health Concerns: As above. Plan of Treatment: As above. Assessment: As above. Patient Instructions: Acute Kidney Injury (DC), Pneumonia (DC)
--- NOTE | 2024-04-15 10:49 | PM.PNCARD ---
Subjective Subjective Date of Service: 04/15/24 Interval history: Seen examined at bedside. Improving clinically. ECHO has shown no wall motion abnormalities. Physical Exam Vital Signs: Last Vital Signs Temp 98.4 F 04/15/24 07:22 Pulse 74 04/15/24 09:15 Resp 18 04/15/24 07:22 BP 135/64 04/15/24 09:15 Pulse Ox 96 04/15/24 07:22 O2 Del Method Room Air 04/15/24 07:22 BMI result Body Mass Index 38.7 GENERAL APPEARANCE: in no acute distress, pleasant. NECK: no carotid bruit, no jugular venous distention. SKIN: no suspicious lesions, warm and dry. HEART: no murmurs, regular rate and rhythm. LUNGS: clear to auscultation bilaterally. ABDOMEN: soft, nontender. EXTREMITIES: no edema. PERIPHERAL PULSES: equal. NEUROLOGIC: No gross deficits, AAO X 3 Objective Labs and Meds 04/14/24 05:03 04/14/24 05:03 Lab results: Laboratory Results - last 24 hr 04/13/24 04/13/24 13:42 14:40 A.phagocytophil DNA PCR NOT DETECTED Babesia microti DNA PCR NOT DETECTED Borrelia sp DNA (PCR) NOT DETECTED Lyme Screen IgG & IgM <0.90 Borrelia miyamotoi (PCR) NOT DETECTED E.chaffeensis DNA (PCR) NOT DETECTED Tick-borne Disease PCR SEE NOTE Progress Note: A&P Assessment and plan (1) Elevated troponin: Status: Acute (2) Pneumonia: Status: Acute Plan [age] year female with type 2 HI in the setting of pneumonia. Clinically no symptoms currently. She has significant vascular disease and is a vasculopath. She will need ischemic evaluation as outpatient. We will arrange a Lexiscan for her. As she improves from pneumonia point of view she can be discharged back home on same medications. Thank you for allowing me to participate in the care of your patient. Please feel free to contact me if you have any questions. Time Spent With Patient Time: Total time managing care of this patient today ____ minutes. Progress Note: Quality Stroke Does the patient have a stroke diagnosis?: No Procedures Date of Service Date of Service: 04/15/24
[2024-04-15] MEDS: cefuroxime axetiL 500 MG TABLET PO ×2 (11:16→20:22)
--- NOTE | 2024-04-15 13:25 | MHC.CM.PN ---
Patient qualifies for STR. Preferences obtained and referrals have been sent. She has accepted a bed offer from [facility] for tomorrow. She will transport via S.
--- NOTE | 2024-04-15 13:41 | P.PNIM_ITS ---
Subjective Subjective Date of Service: 04/15/24 Interval History: cap,generalsied weakness ,fall Review of Systems feels sob with minimal excersion,has cough no fevers Physical Exam 2 Vital Signs: Vital Signs: Last Vital Signs Temp 98.4 F 04/15/24 07:22 Pulse 74 04/15/24 09:15 Resp 18 04/15/24 07:22 BP 135/64 04/15/24 09:15 Pulse Ox 96 04/15/24 07:22 O2 Del Method Room Air 04/15/24 07:22 BMI result Body Mass Index 38.7 Appearance: Alert.? Oriented X3.sob. cvs: rrr, [id number] , no murmur res: air entry diminshed at bases left side >right. abd: no rebound or guarding ,nt, bs present. ext pulses present , no cyanosis. neuro: axo3 , nonfocal. Objective Data Active Medications Acetaminophen (Acetaminophen 325 Mg Tablet) 650 mg PO Q6H PRN PRN Reason: Pain, Mild (Pain Scale 1-3), fever or headache Last Admin: 04/14/24 20:12 Dose: 650 mg Documented By: MAYA Allopurinol (Allopurinol 100 Mg Tablet) 200 mg PO DAILY [facility] Last Admin: 04/15/24 09:15 Dose: 200 mg Documented By: SHIRAZ Ascorbic Acid (Ascorbic Acid 500 Mg Tablet) 1,000 mg PO DAILY [facility] Last Admin: 04/15/24 09:14 Dose: 1,000 mg Documented By: SHIRAZ Aspirin (Aspirin Enteric Coated 325 Mg Tablet.) 325 mg PO DAILY [facility] Last Admin: 04/15/24 09:14 Dose: 325 mg Documented By: SHIRAZ Atorvastatin Calcium (Atorvastatin Calcium 20 Mg Tablet) 20 mg PO DAILY [facility] Last Admin: 04/15/24 09:15 Dose: 20 mg Documented By: SHIRAZ Azithromycin (Azithromycin 500 Mg Tablet) 500 mg PO BEDTIME [facility] Calcium Carbonate (Calcium Carbonate 750 Mg Tab.Chew) 750 mg PO Q4H PRN PRN Reason: Heartburn Cefuroxime Axetil (Cefuroxime Axetil 500 Mg Tablet) 500 mg PO BID [facility] Last Admin: 04/15/24 11:16 Dose: 500 mg Documented By: SHIRAZ Enoxaparin Sodium (Enoxaparin Sodium 40 Mg/0.4 Ml Syringe) 40 mg SUBCUT Q24H [facility] Last Admin: 04/14/24 17:34 Dose: 40 mg Documented By: SHIRAZ Magnesium Hydroxide (Milk Of Magnesia 30 Ml Oral.Susp) 30 ml PO DAILY PRN PRN Reason: Constipation Melatonin (Melatonin 3 Mg Tablet) 6 mg PO BEDTIME PRN PRN Reason: Insomnia Metoprolol Succinate (Metoprolol Succinate Er 50 Mg Tab.Er.24h) 50 mg PO DAILY [facility]; Protocol Last Admin: 04/15/24 09:15 Dose: 50 mg Documented By: SHIRAZ Multivitamins/Vitamin C (Multivitamin Tablet) 1 tab PO DAILY [facility] Last Admin: 04/15/24 09:16 Dose: 1 tab Documented By: SHIRAZ Omeprazole (Omeprazole 40 Mg Capsule.Dr) 40 mg PO DAILY@0630 [facility] Last Admin: 04/15/24 05:37 Dose: 40 mg Documented By: MAYA Ondansetron HCl (Ondansetron Hcl 4 Mg/2 Ml Vial) 4 mg IVPUSH Q8H PRN PRN Reason: Nausea and Vomiting Sodium Chloride (0.9 % Sodium Chloride Flush 3 Ml Syringe) 3 ml IVFLUSH QSHIFT [facility] Last Admin: 04/15/24 09:14 Dose: 3 ml Documented By: SHIRAZ Labs 04/14/24 05:03 04/14/24 05:03 Labs: Laboratory Results - last 24 hr 04/13/24 04/13/24 13:42 14:40 A.phagocytophil DNA PCR NOT DETECTED Babesia microti DNA PCR NOT DETECTED Borrelia sp DNA (PCR) NOT DETECTED Lyme Screen IgG & IgM <0.90 Lyme Progressive Test TNP Borrelia miyamotoi (PCR) NOT DETECTED E.chaffeensis DNA (PCR) NOT DETECTED Tick-borne Disease PCR SEE NOTE Microbiology Microbiology Results: Microbiology 04/13/24 Unknown Urine Culture - Final Urine clean catch - Clean Catch Midstream 04/13/24 14:40 Blood Culture - Preliminary Blood - Venous No growth after 24 hours. 04/13/24 14:40 Blood Culture - Preliminary Blood - Venous No growth after 24 hours. Assessment and Plan (1) Lower extremity weakness: Status: Acute (2) PATRICIA (acute kidney injury): Status: Acute (3) Pneumonia: Status: Acute Assessment and Plan: 68-year-old female with a PMH significant for HLD, HTN, peripheral vascular disease s/p bilateral fem-pop bypass and stenting in 2018, hx of gout, and GERD who presents to the ED for evaluation of generalized weakness/fatigue x3 days and falls at home. Pt will be admitted to the hospital for treatment and further evaluation of generalized weakness with multiple falls at home in the setting of PATRICIA and community-acquired pneumonia. Community-acquired pneumonia CT showing patchy airspace consolidation of left lung base, weakness, fatigue, cough Leukocytosis improving ,no fever blood cultures pending continue with ceftriaxone and azithromycin, started 04/13/2024 PATRICIA imrpoving to 1.37 with hydration moniter renal fucntion/electrolytes Elevated troponins Initial troponin 185.0- 479.1-552.1 Patient asymptomatic, EKG without ischemic changes Cardiology consulted, thought secondary to infection/demand echo-seems fine . Generalized weakness and recurrent falls( possible multifactorial-In the setting of above). Similar episodes in the past Chronic lower extremity weakness with L>R PT evaluation Peripheral vascular disease Continue statin, aspirin Chronic lower leg edema Hold home furosemide, spironolactone due to PATRICIA Left renal nodule CT of abd/pelvis found 2 cm nodule in interpolar region of left kidney F/U outpatient with renal ultrasound to exclude solid lesion Hxof gout Continue allopurinol GERD Continue PPI Full Code DVT Prophylaxis: Lovenox ongoing hospitalization need - rehabd placement Quality Stroke Does the patient have a stroke diagnosis?: No VTE Prior VTE?: No VTE Risk Level:: Medical - moderate - high VTE Device Contraindication: Treatment Not Indicated VTE Drug Contraindication: N/A - Med Ordered
[2024-04-15 15:00] LABS: Sodium 144 mmol/L (135-145)
[2024-04-15 15:11] VITALS: BP 134/61; PULSE 74; RESP 18; TEMP 37.7; O2SAT 98
[2024-04-15] MEDS: Enoxaparin Sodium 40 MG/0.4 ML SYRINGE SUBCUT (18:45)
[2024-04-15 19:17] VITALS: BP 142/66; PULSE 80; RESP 14; TEMP 37.2; O2SAT 97
[2024-04-15] MEDS: Azithromycin 500 MG TABLET PO (20:22)
[2024-04-16] MEDS: 0.9 % Sodium Chloride Flush 3 ML SYRINGE IVFLUSH ×2 (00:30→08:45)
[2024-04-16 03:27] VITALS: BP 141/65; PULSE 81; RESP 14; TEMP 37.1; O2SAT 94
[2024-04-16] MEDS: Acetaminophen 325 MG TABLET 650 MG PO (03:39)
[2024-04-16] MEDS: Omeprazole 40 MG CAPSULE.DR PO (05:21)
[2024-04-16 07:51] VITALS: BP 124/59; PULSE 70; RESP 18; TEMP 36.4; O2SAT 94
[2024-04-16] MEDS: Metoprolol Succinate ER 50 MG TAB.ER.24H PO (08:45)
[2024-04-16] MEDS: allopurinoL 100 MG TABLET 200 MG PO (08:45)
[2024-04-16] MEDS: Multivitamin TABLET 1 TAB PO (08:45)
[2024-04-16] MEDS: Atorvastatin Calcium 20 MG TABLET PO (08:45)
[2024-04-16] MEDS: Ascorbic Acid 500 MG TABLET 1000 MG PO (08:45)
[2024-04-16] MEDS: cefuroxime axetiL 500 MG TABLET PO (08:45)
[2024-04-16] MEDS: Aspirin Enteric Coated 325 MG TABLET.DR PO (08:45)
== END 2024-04-16 10:44 | disposition skilled nursing facility (03) | DRG 194 ==
LOC: HO.ED 18:59 → HO.EDOVER 19:19 → HO.S3 04-14 13:37
PROVIDERS: Physician Assistant; Admitting Provider Student in an Organized Health Care Education/Training Program; Emergency Provider Emergency Medicine; PCP Internal Medicine; Visit Provider Internal Medicine
DX: J18.9 Pneumonia, unspecified organism (principal); E87.1 Hypo-osmolality and hyponatremia; N17.9 Acute kidney failure, unspecified; M06.9 Rheumatoid arthritis, unspecified; I70.203 Unspecified atherosclerosis of native arteries of extremities, bilateral legs; M10.9 Gout, unspecified; K21.9 Gastro-esophageal reflux disease without esophagitis; R60.0 Localized edema; N28.89 Other specified disorders of kidney and ureter; Z23 Encounter for immunization; R29.6 Repeated falls; Z20.822 Contact with and (suspected) exposure to COVID-19; Z87.891 Personal history of nicotine dependence; Z79.82 Long term (current) use of aspirin; Z79.899 Other long term (current) drug therapy
CPT/HCPCS: 0241U; 36415; 70450; 71045; 74176; 80048; 80076; 81001; 83605; 83735; 83880; 84295; 84484; 85025; 85610; 85652; 86140; 86617; 86618; 87040; 87086; 87468; 87469; 87478; 87484; 87798; 90656; 93005; 93306; 97116; 97162; 99285; J0456; J0696; J1200; J1650; J2543; J7120; Q9957

== ENCOUNTER 2024-04-13 19:10 | Outpatient (BNV) | payer MEDICARE, BC, SELFPAY | END 2024-04-14 13:00 | PROVIDERS: Admitting Provider Student in an Organized Health Care Education/Training Program; Emergency Provider Emergency Medicine; PCP Internal Medicine; Visit Provider Internal Medicine Cardiovascular Disease | DX: I35.8 Other nonrheumatic aortic valve disorders (principal) | CPT/HCPCS: 93306 ==

== ENCOUNTER → 2024-04-13 19:10 | Outpatient (BNV) | payer MEDICARE, BC, SELFPAY | PROVIDERS: Admitting Provider Student in an Organized Health Care Education/Training Program; Emergency Provider Emergency Medicine; PCP Internal Medicine; Visit Provider Internal Medicine Cardiovascular Disease | DX: R79.89 Other specified abnormal findings of blood chemistry (principal); J18.9 Pneumonia, unspecified organism | CPT/HCPCS: 99223; 99232 ==

== ENCOUNTER → 2024-04-13 19:10 | Outpatient (BNV) | payer MEDICARE, BC, SELFPAY | PROVIDERS: Admitting Provider Student in an Organized Health Care Education/Training Program; Emergency Provider Emergency Medicine; PCP Internal Medicine; Visit Provider Student in an Organized Health Care Education/Training Program | DX: N17.9 Acute kidney failure, unspecified (principal); J18.9 Pneumonia, unspecified organism | CPT/HCPCS: 99223; 99231; 99232; 99239 ==

== ENCOUNTER 2024-05-06 11:25 | Outpatient (REF) | payer MEDICARE, BC, SELFPAY ==
--- NOTE | ~2024-05-06 | XR_ITS ---
EXAMINATION: XR CHEST CLINICAL INFORMATION: Z87.01 HX OF PNA. COMPARISON: 04/13/2024, 10/10/2015. TECHNIQUE: 2 views of the chest were obtained. FINDINGS: There is no gross pneumothorax. Low lung volumes. Cardiomediastinal silhouette unchanged. Moderate bilateral, predominantly lower lung, left greater than right, patchy airspace opacities. Degenerative changes in the thoracic spine. Trace left pleural effusion. XR/XR chest 2V IMPRESSION: Moderate bilateral, predominantly lower lung, left greater than right, patchy airspace opacities. Trace left pleural effusion. This study was presented to me on June 03, 2024 for interpretation. PSA staff will provide results to referring provider at this time. Electronically signed by: Shraddha Lynn MD 06/03/2024 08:29 AM JULIA
--- NOTE | ~2024-05-06 | US_ITS ---
EXAMINATION: US RETROPERITONEAL LIMITED (RENAL ONLY) CLINICAL INFORMATION: Left renal mass. CT report from 04/13/2024: There is a 2 cm mildly hyperattenuating nodule in the interpolar region of the left kidney. This may represent a proteinaceous/hemorrhagic cyst; however, further characterization with renal ultrasound is recommended to exclude a solid lesion. COMPARISON: CT abdomen and pelvis 04/13/2024. Ultrasound abdomen 12/20/2015. Ultrasound renal 02/28/2011. CT abdomen and pelvis 12/20/2015. TECHNIQUE: Real-time imaging of the kidneys. FINDINGS: RIGHT KIDNEY: 11.2 x 5.1 x 5.1 cm (SAG x AP x TRV). The kidney is normal in size, and contour but with slightly increased echogenicity and cortical thinning. No renal calculi. A benign 4.1 x 2.6 x 3.5 cm complex Bosniak Class II cyst with septations, and possibly solid nodular component (see marti image), cannot on the basis of this exam alone be called benign. LEFT KIDNEY: 10.6 x 5.3 x 4.7 cm (SAG x AP x TRV). The kidney is normal in size, and contour but with slightly increased echogenicity and cortical thinning. No renal calculi. The 2 cm mass seen in the left kidney thought to possibly be a proteinaceous cyst (7:60) corresponds with a solid appearing mass measuring 1.6 x 1.7 x 1.4 cm on this ultrasound. However, it should be noted that a minimally hyperattenuating mass was seen in this same location on the 2016 CT measuring 2.3 cm (2016 CT scan 2:31). There is a benign Bosniak class I exophytic lower pole cyst also seen on the CAT scan (7:53). US/US renal BI IMPRESSION: 1. The left renal mass seen on the CAT scan appears solid on ultrasound, but it is comforting to know that this was slightly larger in 2016, making malignancy much less likely. MRI is recommended for further evaluation. 2. The right renal mass is a complex cyst with septations and possibly solid nodular component. This should also be evaluated at the time of MRI. 3. Bilateral renal cortical thinning and increased echogenicity, suggesting medical renal disease. Electronically signed by: Felix Morales MD 05/30/2024 08:22 PM EST [facility]
[2024-05-06 13:23] LABS: MANUAL DIFF FLAG NO
[2024-05-06 13:23] LABS: Appearance Urine Clear; Color Urine Yellow; Glucose Urine UA Negative (Negative); Leukocyte Esterase Urine Negative (Negative); Nitrite Urine Negative (Negative); Specific Gravity - Urine 1.015 (1.005-1.025); Urine Blood Negative (Negative); Urine Ketones Negative (Negative); Urine Protein Negative (Neg-Trace)
[2024-05-06 13:34] LABS: Bacteria Urine Trace (None Seen); RBC Urine 0-2 /HPF (0-2); Squamous Epithelial Cell Urine >20 /HPF (0-2); WBC Urine 0-5 /HPF (0-5)
[2024-05-06 13:37] LABS: Basophils Absolute Auto 0.1 X10*3/uL (0.0-0.2); Basophils Percent Auto 0.8 % (0-2); Eosinophils Absolute Auto 0.3 X10*3/uL (0.0-0.4); Eosinophils Percent Auto 2.9 % (0-4); Hematocrit 38.4 % (37.0-47.0); Hemoglobin 12.4 g/dl (12.0-16.0); Imm Gran Abs Auto 0.06 X10*3/uL (0.00-0.03); Imm Gran Pct Auto 0.6 % (0.0-0.4); Lymphocytes Absolute Auto 2.4 X10*3/uL (1.2-4.9); Lymphocytes Percent Auto 23.5 % (20-40); Mean Corpuscular HGB Conc 32.3 g/dl (31.0-35.0); Mean Corpuscular Hemoglobin 33.5 pg (27.0-33.0); Mean Corpuscular Volume 103.8 fL (80.0-98.0); Monocytes Absolute Auto 0.6 X10*3/uL (0.1-1.2); Monocytes Percent Auto 5.7 % (2-11); Neutrophils Absolute Auto 6.8 x10*3/uL (2.0-8.3); Neutrophils Percent Auto 66.5 % (45-73); Platelet Count 318 X10*3/uL (160-400); Red Cell Distribution Width 13.3 % (11.0-16.0); White Blood Count 10.2 X10*3/uL (4.8-10.8)
[2024-05-06 14:13] LABS: Alanine Aminotransferase 15 U/L (0-31); Alkaline Phosphatase 81 U/L (39-117); Anion Gap 16 (12-20); Aspartate Amino Transferase 36 U/L (5-31); Bilirubin Total 0.5 mg/dL (0.0-1.0); Blood Urea Nitrogen 16 mg/dL (9-16); C Reactive Protein 3.25 mg/dL (< or = 0.50); Calcium 10.6 mg/dL (8.4-10.2); Carbon Dioxide 29 mmol/L (22-29); Chloride 105 mmol/L (96-108); Estimated Glomerular Filt Rate 39; Glucose Random 101 mg/dL (60-115); Potassium 4.6 mmol/L (3.3-5.1); Sodium 145 mmol/L (135-145)
[2024-05-06 14:14] LABS: Thyroid Stimulating Hormone 2.82 uIU/mL (0.32-4.0)
[2024-05-06 14:23] LABS: Erythrocyte Sedimentation Rate 77 MM/HR (0-20)
== END 2024-05-06 11:26 | disposition home or self-care (01) ==
LOC: HO.HMGCX 11:25
PROVIDERS: PCP Internal Medicine; Visit Provider Internal Medicine
DX: N28.89 Other specified disorders of kidney and ureter (principal); I10 Essential (primary) hypertension; E78.00 Pure hypercholesterolemia, unspecified; M06.09 Rheumatoid arthritis without rheumatoid factor, multiple sites; I73.9 Peripheral vascular disease, unspecified; Z87.01 Personal history of pneumonia (recurrent)
CPT/HCPCS: 36415; 71046; 76775; 80053; 81001; 84443; 85025; 85652; 86140

== ENCOUNTER 2024-05-13 13:59 | Outpatient (AMB) | payer MEDICARE, BC, SELFPAY ==
[2024-05-13 14:17] VITALS: BP 130/70; PULSE 77; BMI 36.8
--- NOTE | 2024-05-13 14:17 | MHC.OFFVIS ---
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: No Accompanied by: Self / Same As Patient Allergies rofecoxib [From VIOXX] Allergy (Severe, Verified 04/13/24 12:23) ANAPHYLAXIS clopidogrel [From PLAVIX] Allergy (Unknown, Verified 04/13/24 12:23) HIUES lisinopril [LISINOPRIL] Allergy (Unknown, Verified 04/13/24 12:23) ANGIOEDEMA Medication List - Last Reconciled 05/13/24 by Adolfo Begum MD acetaminophen ER (Arthritis Pain Reliever) 650 mg PO Q12H PRN alendronate 70 mg PO STAPLES allopurinol 300 mg PO DAILY ascorbic acid (vitamin C) (Vitamin C) 1,000 mg PO DAILY aspirin 325 mg PO DAILY atorvastatin 20 mg PO DAILY furosemide 20 mg PO DAILY metoprolol succinate ER 50 mg PO DAILY omeprazole 40 mg PO DAILY@0630 spironolactone 25 mg PO DAILY vitamin B complex 1 tab PO DAILY HPI Comments Details: [age] year female who has history of peripheral vascular disease who recently presented to [facility] with pneumonia and had type 2 NM. She is here for follow-up. No significant symptoms currently. ECHO has shown normal LVEF. She does not exercise significantly due to peripheral vascular disease and walks with a walker/cane. [facility] Medical History On beta jc at home GERD (gastroesophageal reflux disease) Rheumatoid arthritis Graves disease DJD (degenerative joint disease) of cervical spine Elevated cholesterol Peripheral vascular disease Surgical History S/P femoral-femoral bypass surgery Hx of left knee surgery History of bladder surgery Hx of tubal ligation Hx of tonsillectomy Hx of appendectomy Hx of colonoscopy Social History Household Members: Spouse Housing: Condominium Do you presently have visiting nurse or other home services: No Patient Tobacco Use Status: Former Tobacco user Tobacco use type: Cigarette service: No Review of Systems Const Denies chills, Denies fatigue, Denies fever(s), Denies frequent falls, Denies weakness, Denies weight gain and Denies weight loss ENT Denies dizziness Card Denies chest pain, Denies leg edema, Denies lightheadedness, Denies palpitations, Denies dyspnea and Denies dyspnea on exertion Resp Denies cough, Denies dyspnea and Denies dyspnea on exertion GI Denies hematochezia Musc Denies abnormal gait, Denies muscle weakness, Denies numbness, Denies radiating pain into limb and Denies tingling Neuro Denies abnormal gait, Denies dizziness, Denies frequent falls, Denies numbness, Denies tingling and Denies weakness Endo Denies fatigue and Denies palpitations Physical Exam Vital Signs: Last Vital Signs Pulse 77 05/13/24 14:17 BP 130/70 05/13/24 14:17 BMI result Body Mass Index 36.8 GENERAL APPEARANCE: in no acute distress, pleasant. NECK: no carotid bruit, no jugular venous distention. SKIN: no suspicious lesions, warm and dry. HEART: no murmurs, regular rate and rhythm. LUNGS: clear to auscultation bilaterally. ABDOMEN: soft, nontender. EXTREMITIES: no edema. PERIPHERAL PULSES: equal. NEUROLOGIC: No gross deficits, AAO X 3 Assessment & Plan Assessment & Plan (1) Elevated troponin: Code(s): R79.89 - Other specified abnormal findings of blood chemistry Category: Medical Plan Pleasant 69 year female who is here for follow-up. She had pneumonia and had NSTEMI. Echocardiography was normal. Given significant risk for coronary artery disease we have decided to do Lexiscan. We will arrange that for her. She will follow-up with us after the Lexiscan. Thank you for allowing me to participate in the care of your patient. Please feel free to contact me if you have any questions. Orders: Orders CA lexiscan stress w xi Today R79.89 - Other specified abnormal findings of blood chemistry Coding Level of Care Code Est Pt Level 4 (83396) Diagnoses Elevated troponin R79.89
== END 2024-05-13 14:53 | disposition home or self-care (01) ==
LOC: HO.HCS 14:00
PROVIDERS: PCP Internal Medicine; Visit Provider Internal Medicine Cardiovascular Disease
DX: R79.89 Other specified abnormal findings of blood chemistry (principal)
CPT/HCPCS: 99214

== ENCOUNTER → 2024-05-13 13:59 | Outpatient (BNVA) | payer MEDICARE, BC, SELFPAY | PROVIDERS: PCP Internal Medicine; Visit Provider Internal Medicine Cardiovascular Disease | DX: R79.89 Other specified abnormal findings of blood chemistry (principal); I73.9 Peripheral vascular disease, unspecified | CPT/HCPCS: 99212 ==

== ENCOUNTER 2024-06-15 10:58 | Outpatient (REF) | payer MEDICARE, BC, SELFPAY ==
[2024-06-15] MEDS: gadobutroL 10 ML VIAL IVPUSH (12:37)
== END 2024-06-15 10:59 | disposition home or self-care (01) ==
LOC: HO.MRI 10:58
PROVIDERS: PCP Internal Medicine; Visit Provider Internal Medicine
DX: N28.89 Other specified disorders of kidney and ureter (principal)
CPT/HCPCS: 74183; A9585

== ENCOUNTER 2024-07-06 13:13 | Outpatient (AMB) | payer MEDICARE, BC, SELFPAY ==
--- NOTE | 2024-07-05 13:03 | A.OFFVIS_ITS ---
Vital Signs 07/06/24 13:14 Height 5 ft 3 in Weight 213 lb 13.574 oz BMI 37.9 BP 160/88 H Blood Pressure Location Rt brachial Position Sitting Pulse 83 Pulse Source Pulse Oximeter Pulse Oximetry (%) 97 Oxygen Delivery Method Room Air Intake Visit Reasons: Abnormal chest X-ray Allergies rofecoxib [From VIOXX] Allergy (Severe, Verified 07/06/24 13:18) ANAPHYLAXIS clopidogrel [From PLAVIX] Allergy (Unknown, Verified 07/06/24 13:18) HIUES lisinopril [LISINOPRIL] Allergy (Unknown, Verified 07/06/24 13:18) ANGIOEDEMA HPI HPI Abnormal chest X-ray: Details: Mayelin Espinal is a pleasant 69 year old female, former smoker, 40pyh, quit 2011 with underlying RA, Raynaud's, PVD, and h/o basal cell carcinoma s/p resection. She was referred by PCP for pulmonary evaluation after recent pneumonia. She was admitted to [facility] 04/13-04/15 for community acquired PNA. She presented with generalized weakness/fatigue x3 days and falls at home. She also just recently returned from [place] feeling fatigued for the past 2 days, and decreased appetite. She denied significant shortness of breath, endorses chronic cough that is mostly nonproductive and around baseline. In the ED pt with low- grade fever of 99.3, and slightly soft BP as low as 104/30, satting at 93% on RA. Labs were significant for leukocytosis of 20.3, ESR 84, initial troponin 185.0 with repeats 479.1 and 552.1; CRP 26.97, BNP 440. CXR showed no acute abnormality. CT of abdomen/pelvis found patchy airspace consolidation of left lung base suggestive of infectious/inflammatory process. She was started on IV antibiotics (ceftriaxone/azithromycin), leukocytosis improved and blood culture negative at 48 hours. She was discharged on Ceftin 500 mg p.o. b.i.d. and azithromycin p.o. 500 mg daily for 6 more days. It was recommended that patient have repeat chest imaging in 3-4 weeks to see resolution pneumonia, which PCP ordered, performed on 05/06/24. This continued to reveal bibasilar patchy opacities L>R. She has not had further imaging. Since discharge she feels her symptoms are back at baseline, with dyspnea on moderate exertion. Denies cough, wheezing or chest tightness. She also had elevated troponins, EKG without ischemic changes. Cardiology was consulted, thought elevation was secondary to infection/demand, echo revealed LVEF 65-70% without evidence of regional wall motion abnormalities and diastolic function is normal for age. She will be following up with cardiology outpatient, stress test scheduled. She denies h/o asthma. She denies recurrent URI/PNA. She denies prior h/o pleural effusions. She is under the care of rheumatology, Dr. Eagle, only on allopurinol, has never been on any RA medications, reports RA symptoms well controlled. She reports brother with asthma, otherwise no pertinent family history. She reports likely occupational exposures working with [employer] 20+ years. [facility] Medical History (Updated 07/12/24 @ 19:04 by Silvia Larios NP) On beta cj at home GERD (gastroesophageal reflux disease) Rheumatoid arthritis Graves disease DJD (degenerative joint disease) of cervical spine Elevated cholesterol Peripheral vascular disease Surgical History S/P femoral-femoral bypass surgery Hx of left knee surgery History of bladder surgery Hx of tubal ligation Hx of tonsillectomy Hx of appendectomy Hx of colonoscopy Social History Household Members: Spouse Housing: Condominium Do you presently have visiting nurse or other home services: No Patient Tobacco Use Status: Former Tobacco user Tobacco use type: Cigarette service: No Review of Systems Const Denies chills, Denies excessive sweating, Denies fever(s), Denies headache(s) and Denies night sweats Eyes Denies dry eyes, Denies irritation and Denies itchy eyes ENT Reports Normal hearing present, Denies headache(s), Denies nasal congestion, Denies nasal discharge, Denies post nasal drip and Denies sore throat Card Denies chest pain, Denies chest pain at rest, Denies chest pain with activity, Denies claudication, Denies leg edema, Denies orthopnea and Denies paroxysmal nocturnal dyspnea Resp Denies chest congestion, Denies cough, Denies excessive phlegm production, Denies pain on inspiration, Denies pain with cough, Denies stridor and Denies wheezing Musc Denies myalgias Neuro Reports Normal hearing present and Denies headache(s) Endo Denies excessive sweating Jasvir/Lymph Denies lymphadenopathy Aller/Immun Denies itchy eyes, Denies seasonal rhinorrhea and Denies wheezing Physical Exam Vital Signs: Last Vital Signs Pulse 83 07/06/24 13:14 BP 160/88 H 07/06/24 13:14 Pulse Ox 97 07/06/24 13:14 Oxygen Delivery Method Room Air 07/06/24 13:14 BMI result Body Mass Index 37.9 Const General: cooperative, healthy appearing, comfortable, no acute distress, well developed and alert Nutritional Appearance: obese Orientation/consciousness: patient oriented x3 Limitations: no limitations HEENT Head: Yes normal to inspection, Yes normocephalic and Yes atraumatic Ears: hearing grossly normal bilaterally and external ears normal Eyes General: appearance normal, both eyes and all related structures Eyelids: Yes eyelids normal Sclerae: sclerae normal EOM: EOMs intact bilaterally Neck Neck: Yes normal visual inspection and Yes no lymphadenopathy Lymphatic: no lymphadenopathy noted Chest Chest palpation & inspection: normal inspection of the chest Resp Effort & Inspection: normal respiratory effort, able to speak in complete sente nces, no audible wheezes, no cough, no stridor, not tachypneic, no tripod positioning and no use of accessory muscles Auscultation: clear to auscultation bilaterally Cardio Jugular venous distension: no JVD Rate: regular rate Rhythm: regular rhythm Skin Other: warm, dry General skin exam: no rashes or lesions noted Neuro General: patient oriented x3 Cranial nerves: Yes Normal hearing present Cognition (Neuro): normal cognition Gait exam (Neuro): Normal gait present Extrem General: Yes normal to inspection, Yes capillary refill normal, Yes no clubbing, cyanosis or edema and Yes no pedal edema Psych Appearance: grossly normal and well kempt Speech and movement: Normal speech and movement present and Clear speech present Affect: normal affect Attitude: cooperative Thought process: Normal thought process present Thought content: Normal thought content present Insight: Good insight present (Psych) Judgement: Good judgement present (Psych) Results Reviewed Results Reviewed: [facility] [address] [address] XRay Report Signed with Lakesha Patient: Mayelin Packer MR#: [id number] : 1955 Acct:[id number] Age/Sex: 69 / F ADM Date: 05/06/24 Loc: HO.HMGCX Attending Dr: Laci Kohler DO Ordering Physician: Laci Kohler DO Date of Service: 05/06/24 Procedure(s): XR chest 2V Accession Number(s): [id number] cc: Laci Kohler DO~ ADDENDUM ADDENDUM #[address] Kohler and confirmed with his bilingual medical receptionist, Debi Mckeon, at 11:06am 06/03/2024. I discussed the findings with Dr. Kohler on 06/03/2024 at 12:30 PM. An addendum is being provided as follows to reflect our conversation: Low lung volumes as before. Cardiomediastinal silhouette is unchanged. Moderate bilateral predominantly lower lung patchy airspace opacities, left greater than right have increased since prior exams dating back to 2015 and are concerning for possible pneumonia given clinical history. IMPRESSION: 1. Moderate bilateral predominantly lower lung patchy airspace opacities, left greater than right have increased since prior exams dating back to 2015 and are concerning for possible pneumonia given clinical history. 2. Trace left pleural effusion not appreciated on prior exam of 04/13/2024, only an AP upright portable view of the chest was provided at that time. Electronically signed by: Shraddha Lynn MD 06/03/2024 02:01 PM [facility] Addendum Dictated By: Shraddha Lynn MD Addendum Signed By: <Electronically signed by Shraddha Lynn MD in OV> 06/03/24 1401 Addendum Cosigned By: DD/ TD/TT: 05/06/24 EXAMINATION: XR CHEST CLINICAL INFORMATION: Z87.01 HX OF PNA. COMPARISON: 04/13/2024, 10/10/2015. TECHNIQUE: 2 views of the chest were obtained. FINDINGS: There is no gross pneumothorax. Low lung volumes. Cardiomediastinal silhouette unchanged. Moderate bilateral, predominantly lower lung, left greater than right, patchy airspace opacities. Degenerative changes in the thoracic spine. Trace left pleural effusion. XR/XR chest 2V IMPRESSION: Moderate bilateral, predominantly lower lung, left greater than right, patchy airspace opacities. Trace left pleural effusion. This study was presented to me on June 03, 2024 for interpretation. PSA staff will provide results to referring provider at this time. 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 She feels symptoms are back to baseline, continuing with dyspnea on exertion. Her CXR continues to reveal bibasilar patchy opacities and trace left pleural effusion. Will send for chest CT to further evaluate. Will also send for PFT given dyspnea on exertion. We did discuss that the changes on imaging may be related to underlying RA. Will follow up to review results or sooner if needed. All questions were answered and patient is in agreement of plan. Orders: Orders CT chest wo IV con Today R93.89 - Abnormal findings on diagnostic imaging of other specified body structures PFT pulmonary function test Today R06.09 - Other forms of dyspnea Coding Level of Care Code New Pt Level 4 (96479) Complex EM visit Add On G2211 Diagnoses History of recent pneumonia Z87.01 Dyspnea on exertion R06.09 Rheumatoid arthritis M06.9 Abnormal chest xray R93.89
[2024-07-06 13:14] VITALS: BP 160/88; PULSE 83; O2SAT 97; BMI 37.9
== END 2024-07-06 14:19 | disposition home or self-care (01) ==
PROVIDERS: PCP Internal Medicine; Referring Provider Internal Medicine; Visit Provider Nurse Practitioner Family
DX: Z87.01 Personal history of pneumonia (recurrent) (principal); R06.09 Other forms of dyspnea; M06.9 Rheumatoid arthritis, unspecified; R93.89 Abnormal findings on diagnostic imaging of other specified body structures
CPT/HCPCS: 99204; G2211

== ENCOUNTER → 2024-07-06 13:13 | Outpatient (BNVA) | payer MEDICARE, BC, SELFPAY | PROVIDERS: PCP Internal Medicine; Referring Provider Internal Medicine; Visit Provider Nurse Practitioner Family | DX: R93.89 Abnormal findings on diagnostic imaging of other specified body structures (principal); R06.09 Other forms of dyspnea; M06.9 Rheumatoid arthritis, unspecified; Z87.01 Personal history of pneumonia (recurrent) | CPT/HCPCS: 99202 ==

== ENCOUNTER 2024-07-31 15:44 | Outpatient (REF) | payer MEDICARE, BC, SELFPAY ==
--- NOTE | ~2024-07-31 | CT_ITS ---
EXAMINATION: CT CHEST WITHOUT IV CONTRAST INDICATION: R93.89 - Abnormal findings on diagnostic imaging of other specified body... COMPARISON: Correlation is made with a chest x-ray dated 05/06/2024 and the images of the lung bases from an abdominal CT scan dated 04/13/2024. TECHNIQUE: Helical CT scan of the chest was performed without intravenous contrast. Coronal and sagittal reformatted images were generated and reviewed. This CT exam was performed with one or more of the following dose reduction techniques: automated exposure control, adjustment of the mA and/or kV according to patient size, use of iterative reconstruction technique. DLP: 156 mGy-cm CHEST: THYROID: The thyroid is unremarkable. LUNGS:There are mild subpleural fibrotic changes in both lungs. There is a 7 mm nodule at the right lung base (series 4, image 100) without change. There is a 2 mm nodule of the left lung base (series 4, image 88. There is a 1.6 cm nodular airspace opacity in the right posterior costophrenic angle (series 4, image 113) without change from the prior abdominal CT. MEDIASTINUM: There is no mediastinal lymphadenopathy. JODY: Evaluation of the hilar regions is limited by lack of intravenous contrast material. CARDIOVASCULATURE: The heart is normal in size. There is no pericardial effusion. The thoracic aorta demonstrates atherosclerotic calcification, but is normal in caliber. DEGREE OF CORONARY CALCIFICATION: severe PLEURA: There is no pleural effusion. No pneumothorax. MAIN AIRWAYS: The mainstem bronchi and proximal branches are patent. AXILLA: There is no axillary lymphadenopathy. BONES AND SOFT TISSUES: Unremarkable UPPER ABDOMEN: There is a 10 mm cyst in the left lobe of the liver. The visualized portions of the spleen and adrenals have an unremarkable appearance. CT/CT chest wo IV con IMPRESSION: Mild fibrosis. Subcentimeter bilateral lower lobe pulmonary nodules without change from the prior abdominal CT. 1.6 cm nodular airspace opacity at the right posterior costophrenic angle, for which follow-up is recommended with chest CT in 6 months. Electronically signed by: Laci Amor MD 08/03/2024 10:17 AM EST
== END 2024-07-31 15:45 | disposition home or self-care (01) ==
LOC: HO.CT 15:44
PROVIDERS: PCP Internal Medicine; Visit Provider Nurse Practitioner Family
DX: R93.89 Abnormal findings on diagnostic imaging of other specified body structures (principal)
CPT/HCPCS: 71250

== ENCOUNTER → 2024-07-31 15:47 | Outpatient (BNV) | payer MEDICARE, BC, SELFPAY | PROVIDERS: PCP Internal Medicine; Visit Provider Radiology Diagnostic Radiology | DX: J84.10 Pulmonary fibrosis, unspecified (principal); R91.1 Solitary pulmonary nodule; I25.84 Coronary atherosclerosis due to calcified coronary lesion; I70.0 Atherosclerosis of aorta | CPT/HCPCS: 71250 ==

== ENCOUNTER → 2024-08-13 07:59 | Outpatient (REF) | payer MEDICARE, BC, SELFPAY ==
--- NOTE | 2024-08-13 08:02 | CA_ITS ---
Acquisition Time: 2024-08-13 08:08:03 Total Exercise Time: 00:02:00 Test Indications: ELEVATED TROPONIN Medications: ASA ATORVASTATIN ALLOP[URINOL FUROSEMIDE METOPROLOL OMEPRAZOLE SPIRONALACTONE Protocol: LEXISCAN Max HR: 82 BPM 53% of Pred: 152 BPM Max BP: 130/72 mmHG Max Work Load: 1.0 METS Pharmacologic Stress Test with Lexiscan while pt marches in the chair, with reports of mild SOB and lightheadedness, without any arrythmias, with normotensive response to injection. Nondiagnostic EKG for ischemia. In recovery, pt treated with IVP Aminophylline 75mg to reverse Lexiscan after which pt feeling back to baseline. Nuclear images pending. Test reviewed with Dr. Tellez. Referred By: Adolfo Begum Electronically Signed By: Carlos Armstrong
--- OUTSIDE RECORDS SUMMARY | 2024-08-13 10:52 | XMS_ITS ---
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
--- OUTSIDE RECORDS SUMMARY | 2024-08-13 10:52 | XMS_ITS ---
Author Organization Laci Kohler DO, [facility] Address [address] [place], [place] [id number] Care Team Providers Care Manager Heavy Duty Name Role Phone Laci Kohler Primary Care Provider REASON FOR VISIT Refill MEDICATIONS Medication SIG (Take, Route, Frequency, Duration) Notes Start Date End Date Status diazePAM 5 MG 1 tablet as needed O rally Twice a day for 15 days 06/05/2024 Active Encounters Encounter Location Date Provider Diagnosis Laci Kohler DO, [facility] [address], [place] [id number] 06/05/2024 Laci Kohler Rheumatoid arthritis of multiple sites with negative rheumatoid factor M06.09 ASSESSMENTS Encounter Date Diagnosis Assessment Notes Treatment Notes Treatment Clinical Notes 06/05/2024 Rheumatoid arthritis of multiple sites with negative rheumatoid factor (ICD-10 - M06.09) PLAN OF TREATMENT Medication Medication Name Sig Start Date Stop Date Notes diazePAM 5 MG 1 tablet as needed O rally Twice a day for 15 days 06/05/2024
--- OUTSIDE RECORDS SUMMARY | 2024-08-13 10:52 | XMS_ITS ---
Author Organization Laci Kohler DO, FACP Address [address] [place], [place] [id number] Care Team Providers Care Nurses Assistant Name Role Phone Laci Kohler Primary Care Provider REASON FOR VISIT FYI Encounters Encounter Location Date Provider Diagnosis Laci Kohler DO [address] [phone] 06/03/2024 Laci Kohler PLAN OF TREATMENT No Information
== END ==
LOC: HO.CARD 07:59
PROVIDERS: PCP Internal Medicine; Visit Provider Internal Medicine Cardiovascular Disease
DX: R79.89 Other specified abnormal findings of blood chemistry (principal)
CPT/HCPCS: 93017; J0280; J2785

== ENCOUNTER 2024-08-18 10:45 | Outpatient (REF) | payer MEDICARE, BC, SELFPAY ==
--- NOTE | 2024-08-18 10:56 | PFT_ITS ---
Flows: FEV1: 90 % of predicted at 1.96 L FVC: 86 % of predicted at 2.40 L FEV1/FVC: 82 % Bronchodilator response: Absent Volumes: Total lung capacity: 74 % of predicted at 3.58 L Residual volume: 65 % of predicted at 1.19 L Slow vital capacity: 80 % of predicted at 2.38 L Expiratory reserve volume: 27 % of predicted at 0.19 L Diffusion capacity: Normal Impression: Mild restrictive ventilatory defect with no bronchodilator response. Decreased expiratory reserve volume suggests extrathoracic restriction likely secondary to abdominal obesity. MTDD
== END 2024-08-18 10:46 | disposition home or self-care (01) ==
LOC: HO.RESP 10:45
PROVIDERS: PCP Internal Medicine; Visit Provider Nurse Practitioner Family
DX: R06.09 Other forms of dyspnea (principal)
CPT/HCPCS: 94010; 94640; 94727; 94729

== ENCOUNTER 2024-08-24 14:42 | Outpatient (AMB) | payer MEDICARE, BC, SELFPAY ==
--- NOTE | 2024-08-23 13:19 | MHC.OFFVIS ---
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 Wireman offered & declined Accompanied by: Self / Same As Patient Allergies rofecoxib [From VIOXX] Allergy (Severe, Verified 08/26/24 11:33) ANAPHYLAXIS clopidogrel [From PLAVIX] Allergy (Unknown, Verified 08/26/24 11:33) HIUES lisinopril [LISINOPRIL] Allergy (Unknown, Verified 08/26/24 11:33) ANGIOEDEMA Medication List - Last Reconciled 08/24/24 by Chelo Brian LPN acetaminophen ER (Arthritis Pain Reliever) 650 mg PO Q12H PRN alendronate 70 mg PO STAPLES allopurinol 300 mg PO DAILY ascorbic acid (vitamin C) (Vitamin C) 1,000 mg PO DAILY aspirin 325 mg PO DAILY atorvastatin 20 mg PO DAILY atorvastatin 40 mg PO BEDTIME furosemide 20 mg PO DAILY metoprolol succinate ER 50 mg PO DAILY omeprazole 40 mg PO DAILY@0630 spironolactone 25 mg PO DAILY vitamin B complex 1 tab PO DAILY HPI HPI Dyspnea: Details: Mayelin Espinal is a pleasant 69 year old female, former smoker, 40pyh, quit 2011 with underlying RA, Raynaud's, PVD, and h/o basal cell carcinoma s/p resection. She was referred by PCP for pulmonary evaluation after recent pneumonia. She was admitted to [facility] 04/13-04/15 for community acquired PNA. CT of abdomen/pelvis found patchy airspace consolidation of left lung base suggestive of infectious/inflammatory process. She was started on IV antibiotics (ceftriaxone/azithromycin), leukocytosis improved and blood culture negative at 48 hours. She was discharged on Ceftin 500 mg p.o. b.i.d. and azithromycin p.o. 500 mg daily for 6 more days. It was recommended that patient have repeat chest imaging in 3-4 weeks to see resolution pneumonia, which PCP ordered, performed on 05/06/24. This continued to reveal bibasilar patchy opacities L>R. Today she presents to review PFT and chest CT. She denies any visits to urgent care or hospitalizations related to respiratory distress since the last visit. She continues to report dyspnea on exertion with intermittent wheezing, also notes occasional intermittent sharp pain near the RLL. Of note, she has upcoming cardiology appt to assess for cardiac contribution to dyspnea. [facility] Medical History (Updated 08/26/24 @ 12:06 by Silvia Larios NP) Venous ulcer of left leg History of mammogram (~08/14/22) Femoral bruit History of pyelonephritis Ulnar neuropathy Carpal tunnel syndrome Uterine fibroid Osteoarthritis Anxiety disorder Panic attacks Multinodular goiter Raynauds syndrome Mild hypercholesterolemia Hypertension On beta cj at home GERD (gastroesophageal reflux disease) Rheumatoid arthritis Graves disease DJD (degenerative joint disease) of cervical spine Elevated cholesterol Peripheral vascular disease Surgical History (Updated 08/26/24 @ 10:31 by Ivonne Ortega PA-C) S/P femoral-femoral bypass surgery Hx of left knee surgery History of bladder surgery Hx of tubal ligation Hx of tonsillectomy Hx of appendectomy Hx of colonoscopy (~05/06/20) Social History Household Members: Spouse [facility]: [facility] Do you presently have visiting nurse or other home services: No Patient Tobacco Use Status: Former Tobacco user Tobacco use type: Cigarette service: No Review of Systems Const Denies chills, Denies excessive sweating, Denies fever(s), Denies headache(s) and Denies night sweats Eyes Denies dry eyes, Denies irritation and Denies itchy eyes ENT Reports Normal hearing present, Denies headache(s), Denies nasal congestion, Denies nasal discharge, Denies post nasal drip and Denies sore throat Card Denies chest pain, Denies chest pain at rest, Denies chest pain with activity, Denies claudication, Denies leg edema, Denies orthopnea and Denies paroxysmal nocturnal dyspnea Resp Denies chest congestion, Denies cough, Denies excessive phlegm production, Denies pain on inspiration, Denies pain with cough and Denies stridor Musc Denies myalgias Neuro Reports Normal hearing present and Denies headache(s) Endo Denies excessive sweating Jasvir/Lymph Denies lymphadenopathy Aller/Immun Denies itchy eyes and Denies seasonal rhinorrhea Physical Exam Vital Signs: Last Vital Signs Pulse 78 08/24/24 14:48 BP 126/64 08/24/24 14:48 Pulse Ox 98 08/24/24 14:48 Oxygen Delivery Method Room Air 08/24/24 14:48 BMI result Body Mass Index 38.7 Const General: cooperative, healthy appearing, comfortable, no acute distress, well developed and alert Nutritional Appearance: obese Orientation/consciousness: patient oriented x3 Limitations: no limitations HEENT Head: Yes normal to inspection, Yes normocephalic and Yes atraumatic Ears: hearing grossly normal bilaterally and external ears normal Eyes General: appearance normal, both eyes and all related structures Eyelids: Yes eyelids normal Sclerae: sclerae normal EOM: EOMs intact bilaterally Neck Neck: Yes normal visual inspection and Yes no lymphadenopathy Lymphatic: no lymphadenopathy noted Chest Chest palpation & inspection: normal inspection of the chest Resp Effort & Inspection: normal respiratory effort, able to speak in complete sentences, no audible wheezes, no cough, no stridor, not tachypneic, no tripod positioning and no use of accessory muscles Auscultation: clear to auscultation bilaterally Cardio Jugular venous distension: no JVD Rate: regular rate Rhythm: regular rhythm Skin Other: warm, dry General skin exam: no rashes or lesions noted Neuro General: patient oriented x3 Cranial nerves: Yes Normal hearing present Cognition (Neuro): normal cognition Gait exam (Neuro): Normal gait present Extrem General: Yes normal to inspection, Yes capillary refill normal, Yes no clubbing, cyanosis or edema and Yes no pedal edema Psych Appearance: grossly normal and well kempt Speech and movement: Normal speech and movement present and Clear speech present Affect: normal affect Attitude: cooperative Thought process: Normal thought process present Thought content: Normal thought content present Insight: Good insight present (Psych) Judgement: Good judgement present (Psych) Results Reviewed Results Reviewed: [address] [address] [address] Scan Report Signed Patient: Mayelin Packer MR#: [id number] : 1955 Acct:[id number] Age/Sex: 69 / F ADM Date: 07/31/24 Loc: HO.CT Attending Dr: Silvia Larios NP Ordering Physician: Silvia Larios NP Date of Service: 07/31/24 Procedure(s): CT chest wo IV con Accession Number(s): [id number] cc: Laci Kohler ; ZoeSilvia adrian 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 COMPARISON: Correlation is made with a chest x-ray dated 05/06/2024 and the images of the lung bases from an abdominal CT scan dated 04/13/2024. TECHNIQUE: Helical CT scan of the chest was performed without intravenous contrast. Coronal and sagittal reformatted images were generated and reviewed. This CT exam was performed with one or more of the following dose reduction techniques: automated exposure control, adjustment of the mA and/or kV according to patient size, use of iterative reconstruction technique. DLP: 156 mGy-cm CHEST: THYROID: The thyroid is unremarkable. LUNGS:There are mild subpleural fibrotic changes in both lungs. There is a 7 mm nodule at the right lung base (series 4, image 100) without change. There is a 2 mm nodule of the left lung base (series 4, image 88. There is a 1.6 cm nodular airspace opacity in the right posterior costophrenic angle (series 4, image 113) without change from the prior abdominal CT. MEDIASTINUM: There is no mediastinal lymphadenopathy. JODY: Evaluation of the hilar regions is limited by lack of intravenous contrast material. CARDIOVASCULATURE: The heart is normal in size. There is no pericardial effusion. The thoracic aorta demonstrates atherosclerotic calcification, but is normal in caliber. DEGREE OF CORONARY CALCIFICATION: severe PLEURA: There is no pleural effusion. No pneumothorax. MAIN AIRWAYS: The mainstem bronchi and proximal branches are patent. AXILLA: There is no axillary lymphadenopathy. BONES AND SOFT TISSUES: Unremarkable UPPER ABDOMEN: There is a 10 mm cyst in the left lobe of the liver. The visualized portions of the spleen and adrenals have an unremarkable appearance. CT/CT chest wo IV con IMPRESSION: Mild fibrosis. Subcentimeter bilateral lower lobe pulmonary nodules without change from the prior abdominal CT. 1.6 cm nodular airspace opacity at the right posterior costophrenic angle, for which follow-up is recommended with chest CT in 6 months. Electronically signed by: Laci Amor MD 08/03/2024 10:17 AM EST Dictated By: Laci Amor MD Signed By: <Electronically signed by Laci Amor MD in OV> 08/03/24 1017 DD/ 1547 TD/TT: 07/31/24 1634 Narrow Fabric Calenderer: Assessment & Plan Assessment & Plan (1) History of recent pneumonia: Code(s): Z87.01 - Personal history of pneumonia (recurrent) Category: Medical (2) Dyspnea on exertion: Code(s): R06.09 - Other forms of dyspnea Category: Medical (3) Rheumatoid arthritis: Code(s): M06.9 - Rheumatoid arthritis, unspecified Category: Medical (4) Abnormal chest xray: Code(s): R93.89 - Abnormal findings on diagnostic imaging of other specified body structures Category: Medical (5) Multiple pulmonary nodules: Code(s): R91.8 - Other nonspecific abnormal finding of lung field Category: Medical Plan Reviewed PFT which revealed mild restrictive ventilatory defect with no bronchodilator response, except in small to medium airways. Decreased expiratory reserve volume suggests extrathoracic restriction likely secondary to abdominal obesity. DLCO normal. Agreeable to trial albuterol MDI. CT chest revealed mild subpleural fibrotic changes in both lungs. Multiple stable pulmonary nodules, largest 1.6 cm of RLL that has been stable since abdominal CT in 03/2024. All questions were answered and patient is in agreement of plan. Will follow up in 6-8 weeks or sooner if needed. Orders: Orders CT chest wo IV con 5 Months R91.8 - Other nonspecific abnormal finding of lung field Medications: New albuterol sulfate 90 mcg/actuation 2 puffs inhalation Q4-6H PRN 8.5 grams 3RF shortness of breath or wheezing Coding Level of Care Code Est Pt Level 4 (67976) Diagnoses History of recent pneumonia Z87.01 Dyspnea on exertion R06.09 Rheumatoid arthritis M06.9 Abnormal chest xray R93.89 Multiple pulmonary nodules R91.8
[2024-08-24 14:48] VITALS: BP 126/64; PULSE 78; O2SAT 98; BMI 38.7
--- OUTSIDE RECORDS SUMMARY | 2024-08-24 15:59 | XMS_ITS ---
Author Organization Laci Kohler DO, [facility] Address [address] [place], [place] [id number] Care Team Providers Care Medical Assistant Supervisor Name Role Phone Laci Kohler Primary Care Provider REASON FOR VISIT Refill MEDICATIONS Medication SIG (Take, Route, Frequency, Duration) Notes Start Date End Date Status diazePAM 5 MG 1 tablet as needed O rally Twice a day for 15 days 06/05/2024 Active Encounters Encounter Location Date Provider Diagnosis Laci Kohler DO, [facility] [address], [place] [id number] 06/05/2024 Laci Kohler Rheumatoid arthritis of multiple [...]
--- OUTSIDE RECORDS SUMMARY | 2024-08-24 15:59 | XMS_ITS ---
Author Organization Laci Kohler DO, FACP Address [address], [place] [id number] Care Team Providers Care Fixed Capital Clerk Name Role Phone Laci Kohler Primary Care Provider REASON FOR VISIT FYI Encounters Encounter Location Date Provider Diagnosis Laci Kohler DO [address] [phone] 06/03/2024 Laci Kohler PLAN OF TREATMENT No Information
--- OUTSIDE RECORDS SUMMARY | 2024-08-24 15:59 | XMS_ITS ---
Author Organization Laci Kohler DO, FACP Address [address] [place], [place] [id number] Care Team Providers Care Cooling Pipe Inspector Name Role Phone Laci Kohler Primary Care Provider REASON FOR VISIT Message to self Encounters Encounter Location Date Provider Diagnosis Laci Kohler DO [address] [id number] 06/05/2024 Laci Kohler PLAN OF TREATMENT No Information
== END 2024-08-24 15:16 | disposition home or self-care (01) ==
PROVIDERS: PCP Internal Medicine; Visit Provider Nurse Practitioner Family
DX: Z87.01 Personal history of pneumonia (recurrent) (principal); R06.09 Other forms of dyspnea; M06.9 Rheumatoid arthritis, unspecified; R93.89 Abnormal findings on diagnostic imaging of other specified body structures; R91.8 Other nonspecific abnormal finding of lung field
CPT/HCPCS: 99214

== ENCOUNTER → 2024-08-24 14:42 | Outpatient (BNVA) | payer MEDICARE, BC, SELFPAY | PROVIDERS: PCP Internal Medicine; Visit Provider Nurse Practitioner Family | DX: R06.09 Other forms of dyspnea (principal); R91.8 Other nonspecific abnormal finding of lung field; R93.89 Abnormal findings on diagnostic imaging of other specified body structures; M06.9 Rheumatoid arthritis, unspecified; Z87.01 Personal history of pneumonia (recurrent) | CPT/HCPCS: 99212 ==

== ENCOUNTER 2024-08-26 11:19 | Outpatient (AMB) | payer MEDICARE, BC, SELFPAY ==
--- NOTE | 2024-08-26 11:25 | MHC.PC.OV ---
Vital Signs 08/26/24 11:37 Height 5 ft 3.25 in Weight 215 lb BMI 37.8 BP 154/74 H Blood Pressure Location Rt brachial Pulse 73 Pulse Source Pulse Oximeter Temp 97.1 F Pulse Oximetry (%) 98 Intake Visit Reasons: 3 month follow up Intake Note: no other issues she has had MRI, CT Scan saw Pulmonary doctor on Saturday Allergies rofecoxib [From VIOXX] Allergy (Severe, Verified 08/26/24 12:21) ANAPHYLAXIS clopidogrel [From PLAVIX] Allergy (Unknown, Verified 08/26/24 12:21) HIUES lisinopril [LISINOPRIL] Allergy (Unknown, Verified 08/26/24 12:21) ANGIOEDEMA Medication List - Last Reconciled 08/26/24 by Ivonne Ortega PA-C acetaminophen ER (Arthritis Pain Reliever) 650 mg PO Q12H PRN albuterol sulfate 90 mcg/actuation 2 puffs inhalation Q4-6H PRN alendronate 70 mg PO STAPLES allopurinol 300 mg PO DAILY ascorbic acid (vitamin C) (Vitamin C) 1,000 mg PO DAILY aspirin 325 mg PO DAILY atorvastatin 40 mg PO BEDTIME cholecalciferol (vitamin D3) 25 mcg PO DAILY diazepam 5 mg PO BID PRN fexofenadine (Rhea Allergy) 180 mg PO DAILY furosemide (Lasix) 20 mg PO DAILY metoprolol succinate ER 50 mg PO DAILY omeprazole 40 mg PO DAILY@0630 spironolactone 25 mg PO DAILY vitamin B complex 1 tab PO DAILY PFSH Medical History (Updated 08/26/24 @ 12:32 by Ivonne Ortega PA-C) Follow-up exam, 3-6 months since previous exam Obesity (BMI 30-39.9) Venous ulcer of left leg History of mammogram (~08/14/22) Femoral bruit History of pyelonephritis Ulnar neuropathy Carpal tunnel syndrome Uterine fibroid Osteoarthritis Anxiety disorder Panic attacks Multinodular goiter Raynauds syndrome Mild hypercholesterolemia Hypertension On beta cj at home GERD (gastroesophageal reflux disease) Rheumatoid arthritis Graves disease DJD (degenerative joint disease) of cervical spine Elevated cholesterol Peripheral vascular disease Surgical History S/P femoral-femoral bypass surgery Hx of left knee surgery History of bladder surgery Hx of tubal ligation Hx of tonsillectomy Hx of appendectomy Hx of colonoscopy (~05/06/20) Social History Household Members: Spouse Housing: Condominium Do you presently have visiting nurse or other home services: No Patient Tobacco Use Status: Former Tobacco user Tobacco use type: Cigarette service: No Questionnaire Thrive Questionnaire Date Thrive assessed: 04/14/24 Physical exam (Primary Care) Vital Signs: Last Vital Signs Temp 97.1 F 08/26/24 11:37 Pulse 73 08/26/24 11:37 BP 154/74 H 08/26/24 11:37 Pulse Ox 98 08/26/24 11:37 Care Plan Goal for BP management: <130/80 patient will monitor BP and bring diary due to normal BP at Hospital visit on 08/24/24 BMI result Body Mass Index 37.8 BMI Assessment/Plan discussion: High BMI High, discussed plan: lifestyle, weight reduction, dietary, physical activity and alcohol moderation Tobacco/Smoking Status: Tobacco use Status Patient Tobacco Use Status Former Tobacco user 08/26/24 11:27 Tobacco use type Cigarette 08/26/24 11:27 Thrive Assessment: Date of Thrive Assessment Date Thrive assessed 04/14/24 08/26/24 11:27 Coding Level of Care Code Est Pt Level 4 (85727) Complex EM visit Add On G2211 Diagnoses Multiple pulmonary nodules R91.8 Venous ulcer of left leg I83.029; L97.929 Femoral bruit R09.89 Ulnar neuropathy G56.20 Carpal tunnel syndrome G56.00 Uterine fibroid D25.9 Osteoarthritis M19.90 Anxiety disorder F41.9 Panic attacks F41.0 Multinodular goiter E04.2 Raynauds syndrome I73.00 Mild hypercholesterolemia E78.00 Hypertension I10 Rheumatoid arthritis M06.9 Obesity (BMI 30-39.9) E66.9 Follow-up exam, 3-6 months since previous exam Z09 Assessment & Plan Assessment & Plan (1) Multiple pulmonary nodules: Code(s): R91.8 - Other nonspecific abnormal finding of lung field Category: Medical Plan: Patient had a chest CT on 07/31/2024 which revealed mild fibrosis and bilateral lower lobe pulmonary nodule. 1.6 nodular airspace opacity right posterior costophrenic angle follow-up chest CT in 6 months. Patient being followed by pulmonology. Condition is chronic and stable (2) Venous ulcer of left leg: Code(s): I83.029 - Varicose veins of left lower extremity with ulcer of unspecified site; L97.929 - Non-pressure chronic ulcer of unspecified part of left lower leg with unspecified severity Category: Medical Plan: Left lower leg lateral aspect venous ulcer. No signs of acute infection. Will start patient on Bactroban with instructions to cleans and apply Bactroban with bandage placed a day with referral to the wound clinic. Condition is chronic stable continue to monitor. (3) Femoral bruit: Code(s): R09.89 - Other specified symptoms and signs involving the circulatory and respiratory systems Category: Medical Plan: Patient being followed by cardiology and pulmonology. Condition is chronic and stable continue to monitor (4) Ulnar neuropathy: Code(s): G56.20 - Lesion of ulnar nerve, unspecified upper limb Category: Medical Plan: Condition is chronic and stable continue to monitor (5) Carpal tunnel syndrome: Code(s): G56.00 - Carpal tunnel syndrome, unspecified upper limb Category: Medical Plan: Condition is chronic and stable continue to monitor (6) Uterine fibroid: Code(s): D25.9 - Leiomyoma of uterus, unspecified Category: Medical Plan: Condition is chronic and stable continue to monitor (7) Osteoarthritis: Code(s): M19.90 - Unspecified osteoarthritis, unspecified site Category: Medical Plan: Patient on alendronate 70 mg. Vit C, tylenol for arthritis, Vit D, Vit B. Condition is chronic and stable continue to monitor (8) Anxiety disorder: Code(s): F41.9 - Anxiety disorder, unspecified Category: Medical Plan: Patient on diazepam 5 mg b.i.d. p.r.n.. Condition is chronic staple with any to monitor. (9) Panic attacks: Code(s): F41.0 - Panic disorder [episodic paroxysmal anxiety] Category: Medical Plan: Patient on diazepam 5 mg b.i.d. p.r.n.. Condition is chronic staple with any to monitor. (10) Multinodular goiter: Code(s): E04.2 - Nontoxic multinodular goiter Category: Medical Plan: Condition is chronic staple with any to monitor. (11) Raynauds syndrome: Code(s): I73.00 - Raynaud's syndrome without gangrene Category: Medical Plan: Patient being followed with cardiology follow-up on September 14. Condition is chronic staple with any to monitor. (12) Mild hypercholesterolemia: Code(s): E78.00 - Pure hypercholesterolemia, unspecified Category: Medical Plan: Patient currently on atorvastatin 40 mg bedtime. Condition is chronic and stable continue to monitor (13) Hypertension: Code(s): I10 - Essential (primary) hypertension Category: Medical Plan: Patient's blood pressure elevated today although she was seen in the hospital on 08/24/2024 with a normal blood pressure of 126/64. Denies any cardiac related complaints. Took her blood pressure medications today. Currently on furosemide 20 mg daily, metoprolol 50 mg extended release daily. Patient being followed by Cardiology. Condition is chronic and stable continue to monitor. (14) Rheumatoid arthritis: Code(s): M06.9 - Rheumatoid arthritis, unspecified Category: Medical Plan: Patient on alendronate 70 mg. Vit C, tylenol for arthritis, Vit D, Vit B. Condition is chronic and stable continue to monitor (15) Obesity (BMI 30-39.9): Code(s): E66.9 - Obesity, unspecified Category: Medical Plan: Patient will improve her diet and exercise regimen. Condition is chronic and stable continue to monitor. (16) Follow-up exam, 3-6 months since previous exam: Code(s): Z09 - Encounter for follow-up examination after completed treatment for conditions other than malignant neoplasm Category: Medical Plan Plan - Monitor blood pressure at home and record daily for two weeks to assess for potential home versus office discrepancies. - Continue atorvastatin 40 mg daily for hyperlipidemia. - Start topical Bactroban for treatment of the leg wound identified as venous ulcer; daily cleansing and application advised. - Refer to wound clinic given the chronicity of the leg ulcer. - Planned repeat CT scan for pulmonary nodules scheduled in six months as previously suggested. - CBC, CMP, lipid profile, and thyroid studies to be drawn before the next annual or earlier if indicated. - Scheduled follow-up with levers lace machine operator and sand conditioner machine for additional assessments. - Maintain current medication regimen with continued monitoring for gout, COPD, osteoporosis, and anxiety. Orders: Orders Hemoglobin A1c 08/26/24 Z00.00 - Encounter for general adult medical examination without abnormal findings Magnesium 08/26/24 Z00.00 - Encounter for general adult medical examination without abnormal findings Vitamin B1 08/26/24 Z00.00 - Encounter for general adult medical examination without abnormal findings Vitamin B12 and Folate 08/26/24 Z00.00 - Encounter for general adult medical examination without abnormal findings Vitamin D 25-OH Total 08/26/24 Z00.00 - Encounter for general adult medical examination without abnormal findings PTH Intact Intraoperative 08/26/24 Z00.00 - Encounter for general adult medical examination without abnormal findings Complete Blood Count Auto Diff 08/26/24 Z00. - Encounter for general adult medical examination without abnormal findings Comprehensive Maple. Panel Fast 08/26/24 Z00. - Encounter for general adult medical examination without abnormal findings Lipid Panel 08/26/24 Z00.00 - Encounter for general adult medical examination without abnormal findings Liver Panel 08/26/24 Z00. - Encounter for general adult medical examination without abnormal findings TSH reflex Free T4 08/26/24 Z00. - Encounter for general adult medical examination without abnormal findings Phosphorus 08/26/24 Z00.00 - Encounter for general adult medical examination without abnormal findings Referrals Wound Care Referral I83.029 - Varicose veins of left lower extremity with ulcer of unspecified site, L97.929 - Non-pressure chronic ulcer of unspecified part of left lower leg with unspecified severity Medications: New mupirocin 2% 1 appl topical BID 22 grams 3RF wound Patient Instructions: Patient Instructions - Record blood pressure at home daily for two weeks. - Clean leg wound daily and apply Bactroban; keep covered with a Band-Aid. - Obtain fasting blood tests at your convenience and prior to the next scheduling. - Keep track of medications and ensure proper dosing as reviewed. - Follow up with your levers lace machine operator on September 14 and sand conditioner machine on November 30. - Return to the office if there's worsening of symptoms or lack of improvement in wound healing. Scribe Plan - Not visible on output: History of Present Illness The patient is a 69-year-old female presenting for a three-month follow-up and medication review. She has a history of essential hypertension, which has shown variable readings: high in the clinical setting but reportedly normal at home. This variability was observed after a recent hospital visit where her blood pressure was 120/70 mmHg, but during today's visit, her blood pressure measured 154/74 mmHg. The patient is prescribed multiple medications due to various chronic conditions. She noted discrepancies in her atorvastatin dose, with clarification during the visit that she is on 40 mg, not 20 mg, daily. Among her medications, she has been recently prescribed albuterol for COPD but has been unable to acquire it due to availability issues. She has a documented history of gout, managed with allopurinol, rheumatoid arthritis, and underlying Raynaud's disease. She reports a past pneumonia diagnosis, leading to hospitalization where pulmonary nodules and mild fibrosis were identified, indicating a need for ongoing monitoring. Historically, she experiences anxiety and uses diltiazem as needed. Her osteoporotic condition is managed with specific medications, and BCC resection was previously performed without noted recurrence. Patient is being seen by Cardiology was seen in April and had a Lexiscan. Patient has follow-up with Cardiology on September 14. Patient is being seen by pulmonology due to COPD and recent hospitalization which revealed pulmonary nodules and pneumonia. Patient has follow-up with pulmonology on September 30. Social History - Lives at home and performs daily activities with some assistance from her . - Does laundry but does not cook; assists in carrying laundry. - Reports no use of a ONCOLOGY REP SPECIALIST or CT MANAGER for home care. - Has a history of falls, necessitating EMT assistance. - Utilizes a walker due to fall risk. Review of Systems - Cardiovascular: Reports no chest pain. - Respiratory: Denies shortness of breath, wheezing, and reports mild shortness of breath and lightheadedness during stress test. - Gastrointestinal: No abdominal pain reported; denies black or bloody stools. - Psychological: Denies dizziness with current activities. Physical Exam Appearance: Alert. Oriented X3. No acute distress. Head: Normal external exam. Normocephalic. Atraumatic. Eyes: Pupils are equal, round, and reactive to light. Extraocular movements intact. Conjunctiva and sclera normal. Eyelids normal. Ears: External auditory canal normal. Tympanic membranes normal. No wax noted. Throat: Pharynx normal. Uvula midline. Moist mucous membranes. Neck: Normal inspection. Neck supple. Full range of motion. No adenopathy. Thyroid Normal. No meningeal signs. No neck mass noted. Cardiovascular: Normal heart rate and rhythm. Heart sound normal. No murmurs noted. Pulses normal throughout. Respiratory: No respiratory distress. Painless inspiration. Breath sounds normal. No wheezes/rales/rhonchi noted. Chest nontender. No accessory muscle usage noted or decreased air movement noted. Abdomen: Soft and nontender. No distention noted. No organomegaly noted. Back: No costovertebral angle tenderness. Full range of motion noted. Skin: Skin warm and dry. Normal skin color. Normal skin turgor. No rashes/lesions/lacerations noted. A small wound on the leg noted, described as a venous ulcer, with slight oozing to the left lateral leg. No signs of acute infection. No fluctuance, purulent drainage, foul odor or foreign bodies noted at this time. Extremities: No lower extremity edema. Extremities exhibit normal range of motion. Extremities nontender. Slight swelling noted in one leg. Neuro: Oriented X 3. No motor deficit. No sensory deficit. Reflexes normal. Results - Labs: Previous blood work indicated a low red blood cell count. Calcium levels were slightly elevated. No supplementary iron prescribed as the patient is not currently anemic. - Pulmonary Diagnostic: CAT scan showing mild pulmonary fibrosis and bilateral pulmonary nodules without change from prior imaging. Recommended repeat CT in six months. - Nuclear Stress Test: Fixed basilar inferior defect noted; decision pending if artifact versus past myocardial infarct. Plan - Monitor blood pressure at home and record daily for two weeks to assess for potential home versus office discrepancies. - Continue atorvastatin 40 mg daily for hyperlipidemia. - Start topical Bactroban for treatment of the leg wound identified as venous ulcer; daily cleansing and application advised. - Refer to wound clinic given the chronicity of the leg ulcer. - Planned repeat CT scan for pulmonary nodules scheduled in six months as previously suggested. - CBC, CMP, lipid profile, and thyroid studies to be drawn before the next annual or earlier if indicated. - Scheduled follow-up with levers lace machine operator and sand conditioner machine for additional assessments. - Maintain current medication regimen with continued monitoring for gout, COPD, osteoporosis, and anxiety. Patient was informed and verbally consented to the use of an ambient scribe for clinic note documentation during this visit. Discussion Notes I discussed with the patient the nature and management of her hypertension, emphasizing the importance of home monitoring to determine accuracy and any white-coat effect. We discussed the management of her leg wound and the need for topical antibiotics and potential evaluation by a student development specialist. I reviewed the significance of the pulmonary nodules and fibrosis, explaining the necessity of regular monitoring through imaging. We also discussed the ongoing management of her chronic conditions, including rheumatoid arthritis and anxiety, ensuring she understood the importance of adherence to her current treatment plan. Follow-up with her specialists was encouraged to ensure comprehensive management of her cardiac and pulmonary health. Patient Instructions - Record blood pressure at home daily for two weeks. - Clean leg wound daily and apply Bactroban; keep covered with a Band-Aid. - Obtain fasting blood tests at your convenience and prior to the next scheduling. - Keep track of medications and ensure proper dosing as reviewed. - Follow up with your levers lace machine operator on September 14 and sand conditioner machine on November 30. - Return to the office if there's worsening of symptoms or lack of improvement in wound healing.
[2024-08-26 11:37] VITALS: BP 154/74; PULSE 73; TEMP 36.2; O2SAT 98; BMI 37.8
--- OUTSIDE RECORDS SUMMARY | 2024-08-26 13:14 | XMS_ITS ---
Author Organization Laci Kohler DO, FACP Address [address] [place] [id number] Care Team Providers Care Architecture Department Chair Name Role Phone Laci Kohler Primary Care Provider REASON FOR VISIT 3 month f/u Encounters Encounter Location Date Provider Diagnosis Laci Kohler DO [address] [id number] 08/26/2024 Laci Kohler PLAN OF TREATMENT No Information
--- OUTSIDE RECORDS SUMMARY | 2024-08-26 13:14 | XMS_ITS ---
Author Organization Laci Kohler DO, [facility] [address] Address [address] [place], [place] [id number] Care Team Providers Care Photogrammetric Technician Name Role Phone Laci Kohler Primary Care Provider [phone] REASON FOR VISIT Refill MEDICATIONS Medication SIG (Take, Route, Frequency, Duration) Notes Start Date End Date Status diazePAM 5 MG 1 tablet as needed O rally Twice a day for 15 days 06/05/2024 Active Encounters Encounter Location Date Provider Diagnosis Laci Kohler DO, [facility] [address] [place], [place] [phone] 06/05/2024 Laci Kohler Rheumatoid arthritis of multiple [...]
--- OUTSIDE RECORDS SUMMARY | 2024-08-26 13:14 | XMS_ITS ---
Author Organization Laci Kohler DO, FACP Address [address] [place], [place] [id number] Care Team Providers Care City Tax Auditor Name Role Phone Laci Kohler Primary Care Provider REASON FOR VISIT Message to self Encounters Encounter Location Date Provider Diagnosis Laci Kohler DO [address] [id number] 06/05/2024 Laci Kohler PLAN OF TREATMENT No Information
== END 2024-08-26 12:12 | disposition home or self-care (01) ==
LOC: HO.HMCSH 11:19
PROVIDERS: PCP Internal Medicine; Visit Provider Physician Assistant Medical
DX: R91.8 Other nonspecific abnormal finding of lung field (principal); I83.029 Varicose veins of left lower extremity with ulcer of unspecified site; L97.929 Non-pressure chronic ulcer of unspecified part of left lower leg with unspecified severity; R09.89 Other specified symptoms and signs involving the circulatory and respiratory systems; G56.20 Lesion of ulnar nerve, unspecified upper limb; G56.00 Carpal tunnel syndrome, unspecified upper limb; D25.9 Leiomyoma of uterus, unspecified; M19.90 Unspecified osteoarthritis, unspecified site; F41.9 Anxiety disorder, unspecified; F41.0 Panic disorder [episodic paroxysmal anxiety]; E04.2 Nontoxic multinodular goiter; I73.00 Raynaud's syndrome without gangrene; E78.00 Pure hypercholesterolemia, unspecified; I10 Essential (primary) hypertension; M06.9 Rheumatoid arthritis, unspecified; E66.9 Obesity, unspecified; Z09 Encounter for follow-up examination after completed treatment for conditions other than malignant neoplasm

== ENCOUNTER → 2024-08-26 11:19 | Outpatient (BNVA) | payer MEDICARE, BC, SELFPAY | PROVIDERS: PCP Internal Medicine; Visit Provider Physician Assistant Medical | DX: Z09 Encounter for follow-up examination after completed treatment for conditions other than malignant neoplasm (principal); R91.8 Other nonspecific abnormal finding of lung field; I83.209 Varicose veins of unspecified lower extremity with both ulcer of unspecified site and inflammation; L97.929 Non-pressure chronic ulcer of unspecified part of left lower leg with unspecified severity; R09.89 Other specified symptoms and signs involving the circulatory and respiratory systems; G56.20 Lesion of ulnar nerve, unspecified upper limb; D25.9 Leiomyoma of uterus, unspecified; M19.90 Unspecified osteoarthritis, unspecified site; F41.9 Anxiety disorder, unspecified; E04.2 Nontoxic multinodular goiter; F41.0 Panic disorder [episodic paroxysmal anxiety]; I73.00 Raynaud's syndrome without gangrene; E78.00 Pure hypercholesterolemia, unspecified; I10 Essential (primary) hypertension; M06.9 Rheumatoid arthritis, unspecified; E66.9 Obesity, unspecified | CPT/HCPCS: 99212 ==

== ENCOUNTER 2024-09-14 15:12 | Outpatient (AMB) | payer MEDICARE, BC, SELFPAY ==
--- NOTE | 2024-09-14 15:27 | MHC.OFFVIS ---
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 Accompanied by: Self / Same As Patient Allergies rofecoxib [From VIOXX] Allergy (Severe, Verified 08/26/24 12:21) ANAPHYLAXIS clopidogrel [From PLAVIX] Allergy (Unknown, Verified 08/26/24 12:21) HIUES lisinopril [LISINOPRIL] Allergy (Unknown, Verified 08/26/24 12:21) ANGIOEDEMA Medication List - Last Reconciled 09/14/24 by Adolfo Begum MD acetaminophen ER (Arthritis Pain Reliever) 650 mg PO Q12H PRN albuterol sulfate 90 mcg/actuation 2 puffs inhalation Q4-6H PRN alendronate 70 mg PO STAPLES allopurinol 300 mg PO DAILY ascorbic acid (vitamin C) (Vitamin C) 1,000 mg PO DAILY aspirin 325 mg PO DAILY atorvastatin 40 mg PO BEDTIME cholecalciferol (vitamin D3) 25 mcg PO DAILY diazepam 5 mg PO BID PRN fexofenadine (Rhea Allergy) 180 mg PO DAILY furosemide (Lasix) 20 mg PO DAILY metoprolol succinate ER 50 mg PO DAILY mupirocin 2% 1 appl topical BID omeprazole 40 mg PO DAILY@0630 spironolactone 25 mg PO DAILY vitamin B complex 1 tab PO DAILY HPI Comments Details: [age] year female who has history of peripheral vascular disease who recently presented to [facility] with pneumonia and had type 2 [place]. She is here for follow-up. No significant symptoms currently. ECHO has shown normal LVEF. She does not exercise significantly due to peripheral vascular disease and walks with a walker/cane. 09/14/2024: She is here for follow-up. She underwent echocardiography which showed normal biventricular function without any wall motion abnormalities. She underwent Lexiscan which showed inferior perfusion defect with differentials of old scar versus diaphragmatic attenuation. She has dyspnea on exertion. She also gets some upper back discomfort with activities. She has known history of peripheral vascular disease with previous bypass and follows with [facility] vascular surgery. She is on full-dose aspirin as per vascular surgery recommendation. No GI complaints. [facility] Medical History (Updated 09/14/24 @ 15:50 by Adolfo Begum MD) Follow-up exam, 3-6 months since previous exam Obesity (BMI 30-39.9) Venous ulcer of left leg History of mammogram (~08/14/22) Femoral bruit History of pyelonephritis Ulnar neuropathy Carpal tunnel syndrome Uterine fibroid Osteoarthritis Anxiety disorder Panic attacks Multinodular goiter Raynauds syndrome Mild hypercholesterolemia Hypertension On beta cj at home GERD (gastroesophageal reflux disease) Rheumatoid arthritis Graves disease DJD (degenerative joint disease) of cervical spine Elevated cholesterol Peripheral vascular disease Surgical History S/P femoral-femoral bypass surgery Hx of left knee surgery History of bladder surgery Hx of tubal ligation Hx of tonsillectomy Hx of appendectomy Hx of colonoscopy (~05/06/20) Social History Household Members: [facility] Do you presently have visiting nurse or other home services: No Patient Tobacco Use Status: Former Tobacco user Tobacco use type: Cigarette service: No Review of Systems Const Denies chills, Denies fatigue, Denies fever(s), Denies frequent falls, Denies weakness, Denies weight gain and Denies weight loss ENT Denies dizziness Card Denies chest pain, Denies leg edema, Denies lightheadedness, Denies palpitations, Denies dyspnea and Denies dyspnea on exertion Resp Denies cough, Denies dyspnea and Denies dyspnea on exertion GI Denies hematochezia Musc Denies abnormal gait, Denies muscle weakness, Denies numbness, Denies radiating pain into limb and Denies tingling Neuro Denies abnormal gait, Denies dizziness, Denies frequent falls, Denies numbness, Denies tingling and Denies weakness Endo Denies fatigue and Denies palpitations Physical Exam Vital Signs: Last Vital Signs Pulse 76 09/14/24 15:29 BP 130/72 09/14/24 15:29 BMI result Body Mass Index 38.7 GENERAL APPEARANCE: in no acute distress, pleasant. NECK: no carotid bruit, no jugular venous distention. SKIN: no suspicious lesions, warm and dry. HEART: no murmurs, regular rate and rhythm. LUNGS: clear to auscultation bilaterally. ABDOMEN: soft, nontender. EXTREMITIES: no edema. PERIPHERAL PULSES: equal. NEUROLOGIC: No gross deficits, AAO X 3 Office Procedures EKG Details: Sinus rhythm 76 beats per minute, right bundle-branch block, rightward axis, QTC 517 milliseconds. [id number], Complete Assessment & Plan Assessment & Plan (1) Abnormal nuclear stress test: Code(s): R94.39 - Abnormal result of other cardiovascular function study Category: Medical (2) Hypertension: Code(s): I10 - Essential (primary) hypertension Category: Medical (3) Mild hypercholesterolemia: Code(s): E78.00 - Pure hypercholesterolemia, unspecified Category: Medical Plan Pleasant 69 year female who is here for follow-up. She had pneumonia and NSTEMI. Echocardiography was normal. She underwent Lexiscan given high-risk for coronary artery disease with previous peripheral vascular disease and lower extremity bypass surgery, hypertension and hyperlipidemia. Lexiscan has shown inferior perfusion defect. She has dyspnea on exertion. I have discussed with her that we should get an anatomical steady and I recommended to her to do a coronary CTA. She is agreeable for that. We will arrange that for her. In the meantime she will continue same medications. Follow-up in few months. Thank you for allowing me to participate in the care of your patient. Please feel free to contact me if you have any questions. Orders: Orders CT Cardiac Coronary Angio Today R94.39 - Abnormal result of other cardiovascular function study Basic Metabolic Panel Today R94.39 - Abnormal result of other cardiovascular function study Coding Level of Care Code Est Pt Level 4 (10232) Diagnoses Abnormal nuclear stress test R94.39 Hypertension I10 Mild hypercholesterolemia E78.00 CPT Codes EKG - CPT: 15699-[id number], Complete ([id number])
[2024-09-14 15:29] VITALS: BP 130/72; PULSE 76; BMI 38.7
== END 2024-09-14 15:52 | disposition home or self-care (01) ==
PROVIDERS: PCP Internal Medicine; Visit Provider Internal Medicine Cardiovascular Disease
DX: R94.39 Abnormal result of other cardiovascular function study (principal); I10 Essential (primary) hypertension; E78.00 Pure hypercholesterolemia, unspecified
CPT/HCPCS: 93010; 99214

== ENCOUNTER → 2024-09-14 15:12 | Outpatient (BNVA) | payer MEDICARE, BC, SELFPAY | PROVIDERS: PCP Internal Medicine; Visit Provider Internal Medicine Cardiovascular Disease | DX: R94.39 Abnormal result of other cardiovascular function study (principal); I45.10 Unspecified right bundle-branch block; I73.9 Peripheral vascular disease, unspecified; I10 Essential (primary) hypertension; E78.00 Pure hypercholesterolemia, unspecified | CPT/HCPCS: 93005; 99212 ==

== ENCOUNTER 2024-09-23 13:08 | Outpatient (REF) | payer MEDICARE, BC, SELFPAY ==
[2024-09-23 16:21] LABS: MANUAL DIFF FLAG NO
[2024-09-23 16:32] LABS: Basophils Absolute Auto 0.1 X10*3/uL (0.0-0.2); Basophils Percent Auto 0.7 % (0-2); Eosinophils Absolute Auto 0.2 X10*3/uL (0.0-0.4); Eosinophils Percent Auto 2.7 % (0-4); Hematocrit 37.1 % (37.0-47.0); Hemoglobin 12.1 g/dl (12.0-16.0); Imm Gran Abs Auto 0.03 X10*3/uL (0.00-0.03); Imm Gran Pct Auto 0.4 % (0.0-0.4); Lymphocytes Absolute Auto 1.8 X10*3/uL (1.2-4.9); Lymphocytes Percent Auto 22.4 % (20-40); Mean Corpuscular HGB Conc 32.6 g/dl (31.0-35.0); Mean Corpuscular Hemoglobin 33.2 pg (27.0-33.0); Mean Corpuscular Volume 101.6 fL (80.0-98.0); Mean Platelet Volume 10.1 fL (9.4-12.3); Monocytes Absolute Auto 0.5 X10*3/uL (0.1-1.2); Monocytes Percent Auto 6.4 % (2-11); Neutrophils Absolute Auto 5.5 x10*3/uL (2.0-8.3); Neutrophils Percent Auto 67.4 % (45-73); Platelet Count 244 X10*3/uL (160-400); Red Blood Count 3.65 X10*6/uL (4.20-5.50); Red Cell Distribution Width 14.6 % (11.0-16.0); White Blood Count 8.1 X10*3/uL (4.8-10.8)
[2024-09-23 16:47] LABS: Estimated Average Glucose 100 mg/dL; Hemoglobin A1c % 5.1 % (<6.0)
[2024-09-23 17:03] LABS: TSH reflex Free T4 3.09 uIU/mL (0.32-4.0); Vitamin D 25-OH Total 93.8 ng/mL (>30)
[2024-09-23 17:05] LABS: PTH Intact Intraoperative 125.3 pg/mL (8.7-77.1)
[2024-09-23 17:08] LABS: Alanine Aminotransferase 16 U/L (0-31); Albumin Level 4.1 g/dL (3.5-5.0); Alkaline Phosphatase 73 U/L (39-117); Anion Gap 16 (12-20); Aspartate Amino Transferase 22 U/L (5-31); Bilirubin Direct 0.2 mg/dL (0.0-0.5); Bilirubin Total 0.7 mg/dL (0.0-1.0); Blood Urea Nitrogen 20 mg/dL (9-16); Calcium 9.8 mg/dL (8.4-10.2); Carbon Dioxide 25 mmol/L (22-29); Chloride 107 mmol/L (96-108); Cholesterol 155 mg/dL (<200); Estimated Glomerular Filt Rate 37; Glucose Fasting 99 mg/dL (60-99); Glucose Random 98 mg/dL (60-115); HDL Cholesterol 59 mg/dL (>40); LDL Cholesterol Calculated 73 mg/dL (<100); Magnesium 1.8 mg/dL (1.6-2.6); Phosphorus 2.8 mg/dL (2.7-4.5); Potassium 3.8 mmol/L (3.3-5.1); Sodium 144 mmol/L (135-145); Total Protein 7.1 g/dL (6.5-8.0); Triglycerides 115 mg/dL (<150)
[2024-09-23 17:26] LABS: Folate 17.7 ng/mL (> or = 4.0); Vitamin B12 > 2000 pg/mL (200-900)
[2024-10-03 06:40] LABS: Vitamin B1 357 nmol/L (8-30)
== END 2024-09-23 13:09 | disposition home or self-care (01) ==
LOC: HO.HMGCLDS 13:08
PROVIDERS: PCP Physician Assistant Medical; Referring Provider Internal Medicine Cardiovascular Disease; Visit Provider Physician Assistant Medical
DX: Z00.00 Encounter for general adult medical examination without abnormal findings (principal); R94.39 Abnormal result of other cardiovascular function study; Z13.1 Encounter for screening for diabetes mellitus; Z13.6 Encounter for screening for cardiovascular disorders
CPT/HCPCS: 36415; 80048; 80053; 80061; 80076; 82248; 82306; 82607; 82746; 83036; 83735; 83970; 84100; 84425; 84443; 85025

== ENCOUNTER 2024-11-05 12:51 | Outpatient (AMB) | payer MEDICARE, BC, SELFPAY ==
[2024-11-05 12:54] VITALS: BP 132/68; PULSE 78; O2SAT 97; BMI 38.7
--- NOTE | 2024-11-05 12:54 | MHC.OFFVIS ---
Vital Signs 11/05/24 12:54 Height 5 ft 3 in Weight 218 lb 11.177 oz BMI 38.7 BP 132/68 Blood Pressure Location Lt brachial Position Sitting Pulse 78 Pulse Source Pulse Oximeter Pulse Oximetry (%) 97 Oxygen Delivery Method Room Air Intake Visit Reasons: NMG Intake Note: New patient present today for NMG. 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 Accompanied by: Self / Same As Patient Allergies rofecoxib [From VIOXX] Allergy (Severe, Verified 11/05/24 12:59) ANAPHYLAXIS clopidogrel [From PLAVIX] Allergy (Unknown, Verified 11/05/24 12:59) HIUES lisinopril [LISINOPRIL] Allergy (Unknown, Verified 11/05/24 12:59) ANGIOEDEMA Medication List - Last Reconciled 11/05/24 by Sherry Suarez MD acetaminophen ER (Arthritis Pain Reliever) 650 mg PO Q12H PRN albuterol sulfate 90 mcg/actuation 2 puffs inhalation Q4-6H PRN alendronate 70 mg PO STAPLES allopurinol 300 mg PO DAILY ascorbic acid (vitamin C) (Vitamin C) 1,000 mg PO DAILY aspirin 325 mg PO DAILY atorvastatin 40 mg PO BEDTIME cholecalciferol (vitamin D3) 25 mcg PO DAILY diazepam 5 mg PO BID PRN fexofenadine (Rhea Allergy) 180 mg PO DAILY furosemide (Lasix) 20 mg PO DAILY metoprolol succinate ER 50 mg PO DAILY mupirocin 2% 1 appl topical BID omeprazole 40 mg PO DAILY@0630 spironolactone 25 mg (1/2 x 50 mg) PO DAILY vitamin B complex 1 tab PO DAILY HPI Comments Details: 69-year-old female coming in today for initial evaluation of nontoxic multinodular goiter and elevated PTH levels. Nontoxic multinodular goiter Used to see Dr. Julio Clayton when she was told she has thyroid nodules diagnosed in 2011. Possibly some concern for increased thyroid function juane patient describes that she underwent an uptake and scan however was told it was normal per patient , i do not have any of these records. Never had any FNA biopsy. Patient currently denies heat or cold intolerance, diarrhea or constipation, hair loss, palpitation, anxiety, weight changes, mood changes, changes in appearance of eyes or vision changes, tremors, increased diaphoresis or dry skin. Does complain of fatigue.? Patient denies any difficulty swallowing, pain on swallowing or voice changes or difficulty breathing. Patient denies any history of childhood neck radiation. Denies having ever used lithium, amiodarone or biotin supplements. Patient denies any family history of thyroid cancer . Mother had thyroid disease. Elevated PTH level Labs showed elevated PTH of 125.3 from September 2024, vitamin-D elevated at 93.8, her calcium levels have been high normal ranging anywhere from 9.6-10.2 mostly, she had an elevated level in 05/06/2024 when calcium was elevated to 10.6, however that was the only high reading. History of osteoporosis on alendronate 70 mg weekly, Has been on it for 3 years , prescribe by Dr. Trav Christensen at [facility] fracture : foot fracture at 9 years, arm fracture at 5 years fell off a slide, no recent fragility fracture Vitamin d 1000 units daily Calcium : 500 mg daily in supplment , yogurt daily No history of kidney stones, renal ultrasound from 05/06/2024 did not show any renal calculi Has a history of CKD stage IV, labs from September 2024 showed creatinine of 1.4, EGFR is 37, doesnt see nephrology now , last seen 5-[address] Leon No HCTZ use. Does complain of muscle aches, no constipation, no abd pain, no memory issues, no brain fog Physical exam General: sitting comfortably in no acute distress HEENT: normocephalic/atraumatic, Neck: supple, symmetrical, no thyromegaly Cardiac: normal heart sounds Pulm: normal breath sounds B/L, no added breath sounds Abd: not distended, no tenderness Extremities: no edema, no signs of myxedema Neuro: AAO x3, Speech: normal, no facial droop, moving all 4 extremities Laboratory Tests 04/22/18 10/10/18 04/20/20 08:56 11:59 13:14 Creatinine Estimated GFR Calcium 9.7 10.1 9.6 Albumin 4.3 25-OH Vitamin D Total TSH PTH Intact Intraop 12/22/20 10/02/21 06/21/22 09:46 10:15 10:13 Creatinine Estimated GFR Calcium 10.1 10.2 9.9 Albumin 4.3 4.3 4.5 25-OH Vitamin D Total TSH PTH Intact Intraop 06/25/23 10/28/23 04/13/24 10:06 10:08 13:42 Creatinine Estimated GFR Calcium 10.1 9.6 9.9 Albumin 4.3 4.0 3.9 25-OH Vitamin D Total TSH PTH Intact Intraop 04/14/24 05/06/24 09/23/24 05:03 12:00 13:32 Creatinine Estimated GFR Calcium 9.0 D 10.6 H D Albumin 4.0 25-OH Vitamin D Total 93.8 TSH 3.09 PTH Intact Intraop 125.3 H 09/23/24 13:38 Creatinine 1.40 Estimated GFR 37 Calcium 9.8 D Albumin 4.1 25-OH Vitamin D Total TSH PTH Intact Intraop US RETROPERITONEAL LIMITED (RENAL ONLY) 05/06/24 CLINICAL INFORMATION: Left renal mass. CT report from 04/13/2024: There is a 2 cm mildly hyperattenuating nodule in the interpolar region of the left kidney. This may represent a proteinaceous/hemorrhagic cyst; however, further characterization with renal ultrasound is recommended to exclude a solid lesion. COMPARISON: CT abdomen and pelvis 04/13/2024. Ultrasound abdomen 12/20/2015. Ultrasound renal 02/28/2011. CT abdomen and pelvis 12/20/2015. TECHNIQUE: Real-time imaging of the kidneys. FINDINGS: RIGHT KIDNEY: 11.2 x 5.1 x 5.1 cm (SAG x AP x TRV). The kidney is normal in size, and contour but with slightly increased echogenicity and cortical thinning. No renal calculi. A benign 4.1 x 2.6 x 3.5 cm complex Bosniak Class II cyst with septations, and possibly solid nodular component (see marti image), cannot on the basis of this exam alone be called benign. LEFT KIDNEY: 10.6 x 5.3 x 4.7 cm (SAG x AP x TRV). The kidney is normal in size, and contour but with slightly increased echogenicity and cortical thinning. No renal calculi. The 2 cm mass seen in the left kidney thought to possibly be a proteinaceous cyst (7:60) corresponds with a solid appearing mass measuring 1.6 x 1.7 x 1.4 cm on this ultrasound. However, it should be noted that a minimally hyperattenuating mass was seen in this same location on the 2016 CT measuring 2.3 cm (2016 CT scan 2:31). There is a benign Bosniak class I exophytic lower pole cyst also seen on the CAT scan (7:53). US/US renal BI IMPRESSION: 1. The left renal mass seen on the CAT scan appears solid on ultrasound, but it is comforting to know that this was slightly larger in 2016, making malignancy much less likely. MRI is recommended for further evaluation. 2. The right renal mass is a complex cyst with septations and possibly solid nodular component. This should also be evaluated at the time of MRI. 3. Bilateral renal cortical thinning and increased echogenicity, suggesting medical renal disease. [facility] Medical History (Updated 09/24/24 @ 10:17 by Ivonne Ortega PA-C) Elevated parathyroid hormone Elevated vitamin B12 level Follow-up exam, 3-6 months since previous exam Obesity (BMI 30-39.9) Venous ulcer of left leg History of mammogram (~08/14/22) Femoral bruit History of pyelonephritis Ulnar neuropathy Carpal tunnel syndrome Uterine fibroid Osteoarthritis Anxiety disorder Panic attacks Multinodular goiter Raynauds syndrome Mild hypercholesterolemia Hypertension On beta cj at home GERD (gastroesophageal reflux disease) Rheumatoid arthritis Graves disease DJD (degenerative joint disease) of cervical spine Elevated cholesterol Peripheral vascular disease Surgical History S/P femoral-femoral bypass surgery Hx of left knee surgery History of bladder surgery Hx of tubal ligation Hx of tonsillectomy Hx of appendectomy Hx of colonoscopy (~05/06/20) Social History Household Members: Spouse Housing: Condominium Do you presently have visiting nurse or other home services: No Patient Tobacco Use Status: Former Tobacco user Tobacco use type: Cigarette service: No Physical Exam Vital Signs: Last Vital Signs Pulse 78 11/05/24 12:54 BP 132/68 11/05/24 12:54 Pulse Ox 97 11/05/24 12:54 Oxygen Delivery Method Room Air 11/05/24 12:54 BMI result Body Mass Index 38.7 Assessment & Plan Assessment & Plan (1) Multinodular goiter: Code(s): E04.2 - Nontoxic multinodular goiter Category: Medical Plan: 69-year-old female with no family history of thyroid cancer with no personal history of head or neck radiation who says she has a history of thyroid nodules diagnosed in 2011 and was previously following with the endocrinology, with surveillance ultrasounds, never had an FNA biopsy, and she describes what seems like an uptake and scan so maybe possible concern for hyperthyroidism as well, however was told uptake and scan was normal. At this time she has not had a thyroid ultrasound in many years, she does not have any compressive symptoms. Given it would be unlikely that we would be able to obtain her endocrinology records from this long ago, I will have her repeat a thyroid ultrasound. Normal thyroid function with TSH of 3.09 from 09/23/2024. Plan: -ordered ultrasound of the thyroid (2) Elevated parathyroid hormone: Code(s): R79.89 - Other specified abnormal findings of blood chemistry Category: Medical Plan: Chart review showed she had an elevated PTH level of 125.3 from September 2024 with vitamin-D level at 93.8, her calcium levels have been high normal ranging anywhere from 9.6-10.2 mostly, her however when she had an elevated level on 05/06/2024 when calcium was at 10.6 with albumin of 4. This was the only high reading. She does have history of osteoporosis and goes to [facility] in [place] and is on Fosamax 70 mg weekly for the past 3 years. Bisphosphonates can cause PTH elevation. She also has a history of CKD stage 4, does not see Nephrology anymore, however EGFR is 37 most recently from September 2024, so she could also have secondary hyperparathyroidism in the setting of chronic kidney disease. However given that her calcium levels have been high normal, she could potentially have have primary hyperparathyroidism. I will do a 24 hour urine calcium evaluation to look for hypercalciuria, as well as repeat a set of labs. Given recently there has been some variation in the PTH assay at our lab, I will also have her do labs at [facility]. Her vitamin-D was also noted to be high at 97 from September 2024, we will have her stopped taking vitamin-D for 3 months, these levels can be repeated by primary care provider in 3 months. Plan: -obtain records from [facility] regarding osteoporosis -do 24 hour urine collection and blood work ordered -follow up in 5 weeks to discuss results -discontinue Vitamin-D supplementation Plan I spent 45 minutes in reviewing the record, seeing the patient and documenting in the medical record. Orders: Orders Calcium Today R79.89 - Other specified abnormal findings of blood chemistry Phosphorus Today R79.89 - Other specified abnormal findings of blood chemistry Calcium, 24 Hr Ur Today R79.89 - Other specified abnormal findings of blood chemistry Albumin Level 11/06/24 R79.89 - Other specified abnormal findings of blood chemistry Calcium 11/06/24 R79.89 - Other specified abnormal findings of blood chemistry Parathyroid Hormone Intact 11/06/24 R79.89 - Other specified abnormal findings of blood chemistry Creatinine 11/06/24 R79.89 - Other specified abnormal findings of blood chemistry US thyroid Today E04.2 - Nontoxic multinodular goiter Albumin Level Today R79.89 - Other specified abnormal findings of blood chemistry Calcium, Ionized Today R79.89 - Other specified abnormal findings of blood chemistry Parathyroid Hormone Intact Today R79.89 - Other specified abnormal findings of blood chemistry Creatinine, 24 Hr Group Today R79.89 - Other specified abnormal findings of blood chemistry Magnesium Today R79.89 - Other specified abnormal findings of blood chemistry Creatinine Today R79.89 - Other specified abnormal findings of blood chemistry Calcium, Ionized 11/06/24 R79.89 - Other specified abnormal findings of blood chemistry Patient Instructions: Do ultrasound of the thyroid , someone will call you to schedule this Do 24 hr urine collection and the same day that you hand in the urine , have blood drawn as well ([place] lab) 24 hr urine collection instructions You have been asked to collect your urine for 24 hours to assess for calcium excretion. You must choose a 24 hour period of time when you will be home. The morning of the first day, DISCARD the FIRST morning void and then note the time. You will collect every single void from then on for 24 hours. For example, if you wake up at 6am and urinate, flush down that void. You will then collect every drop of urine all day and all night through 6am the following day. You will urinate one last time at 6am for the collection. The jug of urine must be kept in the refrigerator until you bring it to the lab. Also do blood work at [facility] [address] [place] [address] , [facility], please have them fax results to my office Stop taking vitamin D for 3 months , primary care can repeat levels in 3 months Coding Level of Care Code New Pt Level 4 (22901) Diagnoses Multinodular goiter E04.2 Elevated parathyroid hormone R79.89 Time Spent (min) 45
== END 2024-11-05 13:43 | disposition home or self-care (01) ==
LOC: HO.ENCR 12:52
PROVIDERS: PCP Physician Assistant Medical; Visit Provider Student in an Organized Health Care Education/Training Program
DX: E04.2 Nontoxic multinodular goiter (principal); R79.89 Other specified abnormal findings of blood chemistry
CPT/HCPCS: 99204

== ENCOUNTER → 2024-11-05 12:51 | Outpatient (BNVA) | payer MEDICARE, BC, SELFPAY | PROVIDERS: PCP Physician Assistant Medical; Visit Provider Student in an Organized Health Care Education/Training Program | DX: E04.2 Nontoxic multinodular goiter (principal); R79.89 Other specified abnormal findings of blood chemistry | CPT/HCPCS: 99202 ==

== ENCOUNTER 2024-11-09 11:30 | Outpatient (REF) | payer MEDICARE, BC, SELFPAY ==
[2024-11-09 13:23] LABS: Albumin Level 4.3 g/dL (3.5-5.0); Calcium 9.7 mg/dL (8.4-10.2); Estimated Glomerular Filt Rate 37; Magnesium 1.9 mg/dL (1.6-2.6); Phosphorus 2.6 mg/dL (2.7-4.5)
[2024-11-09 13:54] LABS: Parathyroid Hormone Intact 205.5 pg/mL (8.7-77.1)
[2024-11-09 14:01] LABS: Creatinine, mg/dL 90.53
[2024-11-09 14:05] LABS: Creatinine, 24Hr Urine 0.8 G/Day (1.0-2.0); Total Volume 24 Hour Urine 925 mL
[2024-11-10 15:03] LABS: Calcium, Ionized 5.3 mg/dL (4.7-5.5)
[2024-11-20 13:23] LABS: Calcium, 24 Hr Urine 37 mg/24 h; Calcium/Creatinine Ratio 44 mg/g creat (30-275); Creatinine 24Hr Urine 0.84 g/24 h (0.50-2.15)
== END 2024-11-09 11:31 | disposition home or self-care (01) ==
LOC: HO.HMGCLDS 11:30
PROVIDERS: PCP Internal Medicine; Visit Provider Student in an Organized Health Care Education/Training Program
DX: R79.89 Other specified abnormal findings of blood chemistry (principal)
CPT/HCPCS: 36415; 82040; 82310; 82330; 82340; 82565; 82570; 83735; 83970; 84100

== ENCOUNTER 2024-11-30 10:44 | Outpatient (AMB) | payer MEDICARE, BC, SELFPAY ==
[2024-11-30 10:59] VITALS: BP 150/78; PULSE 70; O2SAT 95; BMI 38.1
--- NOTE | 2024-11-30 10:59 | MHC.OFFVIS ---
Vital Signs 11/30/24 10:59 Height 5 ft 3 in Weight 214 lb 15.211 oz BMI 38.1 BP 150/78 H Blood Pressure Location Rt brachial Position Sitting Pulse 70 Pulse Source Pulse Oximeter Pulse Oximetry (%) 95 Oxygen Delivery Method Room Air Intake Visit Reasons: Dyspnea Allergies rofecoxib [From VIOXX] Allergy (Severe, Verified 11/30/24 11:03) ANAPHYLAXIS clopidogrel [From PLAVIX] Allergy (Unknown, Verified 11/30/24 11:03) HIUES lisinopril [LISINOPRIL] Allergy (Unknown, Verified 11/30/24 11:03) ANGIOEDEMA HPI HPI Dyspnea: Details: Mayelin Espinal is a pleasant 69 year old female, former 40 pack year smoker, quit 2011 with underlying RA, Raynaud's, PVD, and h/o basal cell carcinoma s/p resection. She was initially referred by PCP for pulmonary evaluation she was admitted to [facility] 04/13-04/15 for community acquired PNA. CT of abdomen/pelvis found patchy airspace consolidation of left lung base suggestive of infectious/inflammatory process. Recommendation made to repeat chest imaging performed on 05/06/24. This continued to reveal bibasilar patchy opacities L>R. On imaging from 07/2024 there was resolving opacities with recommendation for repeat chest CT in 6 months, which is scheduled for January 2025. At the last visit, she was trialed on albuterol MDI for occasional dyspnea on exertion with intermittent wheezing which she has been using once per day with good effect. She is not interested in an ICS inhaler at this time. She was reportedly evaluated by cardiology to assess for cardiac contribution to dyspnea which was reportedly unremarkable. [facility] Medical History (Updated 09/24/24 @ 10:17 by Ivonne Ortega PA-C) Elevated parathyroid hormone Elevated vitamin B12 level Follow-up exam, 3-6 months since previous exam Obesity (BMI 30-39.9) Venous ulcer of left leg History of mammogram (~08/14/22) Femoral bruit History of pyelonephritis Ulnar neuropathy Carpal tunnel syndrome Uterine fibroid Osteoarthritis Anxiety disorder Panic attacks Multinodular goiter Raynauds syndrome Mild hypercholesterolemia Hypertension On beta cj at home GERD (gastroesophageal reflux disease) Rheumatoid arthritis Graves disease DJD (degenerative joint disease) of cervical spine Elevated cholesterol Peripheral vascular disease Surgical History S/P femoral-femoral bypass surgery Hx of left knee surgery History of bladder surgery Hx of tubal ligation Hx of tonsillectomy Hx of appendectomy Hx of colonoscopy (~05/06/20) Social History Household Members: Spouse [facility] Do you presently have visiting nurse or other home services: No Patient Tobacco Use Status: Former Tobacco user Tobacco use type: Cigarette service: No Review of Systems Const Denies chills, Denies excessive sweating, Denies fever(s), Denies headache(s) and Denies night sweats Eyes Denies dry eyes, Denies irritation and Denies itchy eyes ENT Reports Normal hearing present, Denies headache(s), Denies nasal congestion, Denies nasal discharge, Reports post nasal drip and Denies sore throat Card Denies chest pain, Denies chest pain at rest, Denies chest pain with activity, Denies claudication, Denies leg edema, Denies orthopnea and Denies paroxysmal nocturnal dyspnea Resp Denies chest congestion, Denies cough, Denies excessive phlegm production, Denies pain on inspiration, Denies pain with cough and Denies stridor Musc Denies myalgias Neuro Reports Normal hearing present and Denies headache(s) Endo Denies excessive sweating Jasvir/Lymph Denies lymphadenopathy Aller/Immun Denies itchy eyes and Denies seasonal rhinorrhea Physical Exam Vital Signs: Last Vital Signs Pulse 70 11/30/24 10:59 BP 150/78 H 11/30/24 10:59 Pulse Ox 95 11/30/24 10:59 Oxygen Delivery Method Room Air 11/30/24 10:59 BMI result Body Mass Index 38.1 Const General: cooperative, healthy appearing, comfortable, no acute distress, well developed and alert Nutritional Appearance: obese Orientation/consciousness: patient oriented x3 Limitations: no limitations HEENT Head: Yes normal to inspection, Yes normocephalic and Yes atraumatic Ears: hearing grossly normal bilaterally and external ears normal Eyes General: appearance normal, both eyes and all related structures Eyelids: Yes eyelids normal Sclerae: sclerae normal EOM: EOMs intact bilaterally Neck Neck: Yes normal visual inspection and Yes no lymphadenopathy Lymphatic: no lymphadenopathy noted Chest Chest palpation & inspection: normal inspection of the chest Resp Effort & Inspection: normal respiratory effort, able to speak in complete sentences, no audible wheezes, no cough, no stridor, not tachypneic, no tripod positioning and no use of accessory muscles Auscultation: clear to auscultation bilaterally Cardio Jugular venous distension: no JVD Rate: regular rate Rhythm: regular rhythm Skin Other: warm, dry General skin exam: no rashes or lesions noted Neuro General: patient oriented x3 Cranial nerves: Yes Normal hearing present Cognition (Neuro): normal cognition Gait exam (Neuro): Normal gait present Extrem General: Yes normal to inspection, Yes capillary refill normal, Yes no clubbing, cyanosis or edema and Yes no pedal edema Psych Appearance: grossly normal and well kempt Speech and movement: Normal speech and movement present and Clear speech present Affect: normal affect Attitude: cooperative Thought process: Normal thought process present Thought content: Normal thought content present Insight: Good insight present (Psych) Judgement: Good judgement present (Psych) Results Reviewed Results Reviewed: [place] [address] CT Scan Report Signed Patient: Mayelin Packer MR#: [id number] : 1955 Acct:[id number] Age/Sex: 69 / F ADM Date: 07/31/24 Loc: HO.CT Attending Dr: Silvia Larios NP Ordering Physician: Silvai Lraios NP Date of Service: 07/31/24 Procedure(s): CT chest wo IV con Accession Number(s): [id number] cc: Laci Kohler DO; Silvia Larios NP~ Report Number: [id number]: Total DLP = 156.00 mGy-cm EXAMINATION: CT CHEST WITHOUT IV CONTRAST INDICATION: R93.89 - Abnormal findings on diagnostic imaging of other specified body... COMPARISON: Correlation is made with a chest x-ray dated 05/06/2024 and the images of the lung bases from an abdominal CT scan dated 04/13/2024. TECHNIQUE: Helical CT scan of the chest was performed without intravenous contrast. Coronal and sagittal reformatted images were generated and reviewed. This CT exam was performed with one or more of the following dose reduction techniques: automated exposure control, adjustment of the mA and/or kV according to patient size, use of iterative reconstruction technique. DLP: 156 mGy-cm CHEST: THYROID: The thyroid is unremarkable. LUNGS:There are mild subpleural fibrotic changes in both lungs. There is a 7 mm nodule at the right lung base (series 4, image 100) without change. There is a 2 mm nodule of the left lung base (series 4, image 88. There is a 1.6 cm nodular airspace opacity in the right posterior costophrenic angle (series 4, image 113) without change from the prior abdominal CT. MEDIASTINUM: There is no mediastinal lymphadenopathy. JODY: Evaluation of the hilar regions is limited by lack of intravenous contrast material. CARDIOVASCULATURE: The heart is normal in size. There is no pericardial effusion. The thoracic aorta demonstrates atherosclerotic calcification, but is normal in caliber. DEGREE OF CORONARY CALCIFICATION: severe PLEURA: There is no pleural effusion. No pneumothorax. MAIN AIRWAYS: The mainstem bronchi and proximal branches are patent. AXILLA: There is no axillary lymphadenopathy. BONES AND SOFT TISSUES: Unremarkable UPPER ABDOMEN: There is a 10 mm cyst in the left lobe of the liver. The visualized portions of the spleen and adrenals have an unremarkable appearance. CT/CT chest wo IV con IMPRESSION: Mild fibrosis. Subcentimeter bilateral lower lobe pulmonary nodules without change from the prior abdominal CT. 1.6 cm nodular airspace opacity at the right posterior costophrenic angle, for which follow-up is recommended with chest CT in 6 months. Electronically signed by: Laci Amor MD 08/03/2024 10:17 AM EST Dictated By: Laci Amor MD Signed By: <Electronically signed by Laci Amor MD in OV> 07/16 Assessment & Plan Assessment & Plan (1) Dyspnea on exertion: Code(s): R06.09 - Other forms of dyspnea Category: Medical (2) Rheumatoid arthritis: Code(s): M06.9 - Rheumatoid arthritis, unspecified Category: Medical (3) Abnormal chest xray: Code(s): R93.89 - Abnormal findings on diagnostic imaging of other specified body structures Category: Medical (4) Multiple pulmonary nodules: Code(s): R91.8 - Other nonspecific abnormal finding of lung field Category: Medical Plan Encouraged patient to continue to use albuterol MDI PRN as PFT revealed response to bronchodilator in small to medium airways suggestive of small airways disease. If she increases use will call to discuss ICS. CT chest 07/2024 revealed mild subpleural fibrotic changes in both lungs, multiple stable pulmonary nodules, largest 1.6 cm of RLL that has been stable since abdominal CT in 03/2024. She has upcoming Chest CT 01/2025 to assess stability. All questions were answered and patient is in agreement of plan. Will follow up to review results or sooner if needed. Coding Level of Care Code Est Pt Level 4 (98025) Diagnoses Dyspnea on exertion R06.09 Rheumatoid arthritis M06.9 Abnormal chest xray R93.89 Multiple pulmonary nodules R91.8
== END 2024-11-30 11:28 | disposition home or self-care (01) ==
LOC: HO.HPS 10:44
PROVIDERS: PCP Internal Medicine; Visit Provider Nurse Practitioner Family
DX: R06.09 Other forms of dyspnea (principal); M06.9 Rheumatoid arthritis, unspecified; R93.89 Abnormal findings on diagnostic imaging of other specified body structures; R91.8 Other nonspecific abnormal finding of lung field
CPT/HCPCS: 99214

== ENCOUNTER → 2024-11-30 10:44 | Outpatient (BNVA) | payer MEDICARE, BC, SELFPAY | PROVIDERS: PCP Internal Medicine; Visit Provider Nurse Practitioner Family | DX: R06.09 Other forms of dyspnea (principal); M06.9 Rheumatoid arthritis, unspecified; R93.89 Abnormal findings on diagnostic imaging of other specified body structures; R91.8 Other nonspecific abnormal finding of lung field | CPT/HCPCS: 99212 ==

== ENCOUNTER 2024-12-04 15:22 | Outpatient (REF) | payer MEDICARE, BC, SELFPAY ==
--- NOTE | ~2024-12-04 | US_ITS ---
EXAMINATION: US THYROID CLINICAL INFORMATION: Nontoxic multinodular goiter. COMPARISON: None available. TECHNIQUE: Linear transducer grayscale and color Doppler examination with attention to the region of the thyroid. FINDINGS: SIZE: Measurements of the thyroid lobes and nodules are given in sagittal, anteroposterior and transverse dimensions respectively. Right Thyroid Lobe: 5.5 x 1.4 x 1.3 cm, volume 5.2 mL. Parenchyma: The gland echotexture is heterogeneous. Thyroid vascularity is normal. Left Thyroid Lobe: 5.2 x 1.8 x 1.5 cm, volume 7.4 mL. Parenchyma: The gland echotexture is heterogeneous. Thyroid vascularity is normal. Isthmus: 0.2 cm in maximum AP dimension. Estimated total number of nodules greater than or equal to 1 cm: 0. [place] nodules are described as follows: 1. Location: Upper left thyroid lobe. Size: 0.7 x 0.7 x 0.6 cm, volume 0.15 mL. Nodule characteristics: Composition: Cystic(0). Echogenicity: Anechoic (0). Shape: Not taller than wide (0). Margins: Smooth (0). Echogenic Foci: Macrocalcifications (1). ACR TI-RADS total points: 0 ACR TI-RADS category: 1 2. Location: Mid left thyroid lobe. Size: 0.9 x 0.7 x 0.6 cm, volume 0.2 mL. Nodule characteristics: Composition: Solid (2). Echogenicity: Hypoechoic (2). Shape: Taller than wide (3). Margins: Smooth (0). Echogenic Foci: None (0). ACR TI-RADS total points: 7 ACR TI-RADS category: 5 3. Location: Lower right thyroid lobe. Size: 0.7 x 0.3 x 0.5 cm, volume 0.06 mL. Nodule characteristics: Composition: Cystic(0). Echogenicity: Anechoic (0). Shape: Not taller than wide (0). Margins: Smooth (0). Echogenic Foci: None (0). ACR TI-RADS total points: 0 ACR TI-RADS category: 1 4. Location: Lower right thyroid lobe. Size: 0.6 x 0.5 x 0.5 cm, volume 0.09 mL. Nodule characteristics: Composition: Cystic(0). Echogenicity: Anechoic (0). Shape: Not taller than wide (0). Margins: Smooth (0). Echogenic Foci: None (0). ACR TI-RADS total points: 0 ACR TI-RADS category: 1 NODES: No lymphadenopathy is seen in the tissue surrounding the thyroid gland. US/US thyroid IMPRESSION: ACR TI RADS 5, mid left thyroid lobe. ACR TI-RADS RECOMMENDATION REFERENCE: Ultrasound-guided fine-needle aspiration, followup ultrasound, no further follow up. * TR1 (0 point) and TR2 (2 points): No FNA or follow up. * TR3 (3 points): FNA if more than or equal to 2.5 cm in maximum dimension, followup ultrasound in 1, 3 and 5 years if 1.5 to 2.4 cm in maximum dimension. * TR4 (4-6 points): FNA if more than or equal to 1.5 cm in maximum dimension, followup ultrasound in 1, 2, 3 and 5 years if 1 to 1.4 cm in maximum dimension. * TR5 (more than or equal to 7 points): FNA if more than or equal to 1 cm in maximum dimension, followup ultrasound every year for 5 years if 0.5 to 0.9 cm in maximum dimension. * TR3, TR4 or TR5 nodules that are below the size threshold for followup receive no follow up. Electronically signed by: Francesco Owusu MD 12/08/2024 11:35 AM EDT
== END 2024-12-04 15:23 | disposition home or self-care (01) ==
LOC: HO.HMGCX 15:22
PROVIDERS: PCP Internal Medicine; Visit Provider Student in an Organized Health Care Education/Training Program
DX: E04.2 Nontoxic multinodular goiter (principal)
CPT/HCPCS: 76536

== ENCOUNTER → 2024-12-04 15:23 | Outpatient (BNV) | payer MEDICARE, BC, SELFPAY | PROVIDERS: PCP Internal Medicine; Visit Provider Radiology Diagnostic Radiology | DX: E04.2 Nontoxic multinodular goiter (principal) | CPT/HCPCS: 76536 ==

== ENCOUNTER 2024-12-17 12:54 | Outpatient (AMB) | payer MEDICARE, BC, SELFPAY ==
[2024-12-17 12:56] VITALS: BP 140/80; PULSE 70; O2SAT 94; BMI 38.3
--- NOTE | 2024-12-17 12:56 | MHC.OFFVIS ---
Vital Signs 12/17/24 12:56 Height 5 ft 3 in Weight 216 lb 0.848 oz BMI 38.3 BP 140/80 H Blood Pressure Location Lt brachial Position Sitting Pulse 70 Pulse Source Pulse Oximeter Pulse Oximetry (%) 94 Oxygen Delivery Method Room Air Intake Visit Reasons: Elevated parathyroid hormone Intake Note: Patient present today for Elevated parathyroid hormone. 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 Accompanied by: Self / Same As Patient Allergies rofecoxib [From VIOXX] Allergy (Severe, Verified 12/17/24 13:01) ANAPHYLAXIS clopidogrel [From PLAVIX] Allergy (Unknown, Verified 12/17/24 13:01) HIUES lisinopril [LISINOPRIL] Allergy (Unknown, Verified 12/17/24 13:01) ANGIOEDEMA Medication List - Last Reconciled 12/17/24 by Sherry Suarez MD acetaminophen ER (Arthritis Pain Reliever) 650 mg PO Q12H PRN albuterol sulfate 90 mcg/actuation 2 puffs inhalation Q4-6H PRN alendronate 70 mg PO STAPLES allopurinol 300 mg PO DAILY ascorbic acid (vitamin C) (Vitamin C) 1,000 mg PO DAILY aspirin 325 mg PO DAILY atorvastatin 40 mg PO BEDTIME diazepam 5 mg PO BID PRN fexofenadine (Rhea Allergy) 180 mg PO DAILY furosemide (Lasix) 20 mg PO DAILY metoprolol succinate ER 50 mg PO DAILY omeprazole 40 mg PO DAILY@0630 spironolactone 25 mg (1/2 x 50 mg) PO DAILY HPI Comments Details: 69-year-old female coming in today for follow up of nontoxic multinodular goiter and elevated PTH levels. Nontoxic multinodular goiter Used to see Dr. Julio Clayton when she was told she has thyroid nodules diagnosed in 2011. Possibly some concern for increased thyroid function tanisha patient describes that she underwent an uptake and scan however was told it was normal per patient , i do not have any of these records. Never had any FNA biopsy. Patient currently denies heat or cold intolerance, diarrhea or constipation, hair loss, palpitation, anxiety, weight changes, mood changes, changes in appearance of eyes or vision changes, tremors, increased diaphoresis or dry skin. Does complain of fatigue.? Patient denies any difficulty swallowing, pain on swallowing or voice changes or difficulty breathing. Patient denies any history of childhood neck radiation. Denies having ever used lithium, amiodarone or biotin supplements. Patient denies any family history of thyroid cancer . Mother had thyroid disease. Interval history US thyroid 12/04/24 I reviewed the images myself [facility] showed B/L subcentimeter cysts/ nodules, a left mid 0.9 cm TR 5 nodule, we will continue to follow with repeat US in November 2025 Elevated PTH level Labs showed elevated PTH of 125.3 from September 2024, vitamin-D elevated at 93.8, her calcium levels have been high normal ranging anywhere from 9.6-10.2 mostly, she had an elevated level in 05/06/2024 when calcium was elevated to 10.6, however that was the only high reading. History of osteoporosis on alendronate 70 mg weekly, Has been on it for 3 years , prescribe by Dr. Trav Christensen at [facility] fracture : foot fracture at 9 years, arm fracture at 5 years fell off a slide, no recent fragility fracture Vitamin d 1000 units daily Calcium : 500 mg daily in supplment , yogurt daily No history of kidney stones, renal ultrasound from 05/06/2024 did not show any renal calculi Has a history of CKD stage IV, labs from September 2024 showed creatinine of 1.4, EGFR is 37, doesnt see nephrology now , last seen 5-[address] Leon No HCTZ use. Does complain of muscle aches, no constipation, no abd pain, no memory issues, no brain fog Interval history Obtained records from [facility], looks like patient has been on alendronate from 2021 70 mg weekly, for osteopenia with the elevated FRAX score of 3.4% at the hip. Her worst T-score was-2.4 at the femoral neck. She continues to follow up with them. Blood work from October 2024 showed normal calcium levels, PTH elevated at 205, GFR of 37, 24 hour urine calcium was not elevated in fact was on the lower side likely due to poor nutritional intake of calcium. Physical exam General: sitting comfortably in no acute distress HEENT: normocephalic/atraumatic, Neck: supple, symmetrical, no thyromegaly Cardiac: normal heart sounds Pulm: normal breath sounds B/L, no added breath sounds Abd: not distended, no tenderness Extremities: no edema, no signs of myxedema Neuro: AAO x3, Speech: normal, no facial droop, moving all 4 extremities Laboratory Tests 04/22/18 10/10/18 04/20/20 08:56 11:59 13:14 Creatinine Estimated GFR Calcium 9.7 10.1 9.6 Albumin 4.3 25-OH Vitamin D Total TSH PTH Intact Intraop 12/22/20 10/02/21 06/21/22 09:46 10:15 10:13 Creatinine Estimated GFR Calcium 10.1 10.2 9.9 Albumin 4.3 4.3 4.5 25-OH Vitamin D Total TSH PTH Intact Intraop 06/25/23 10/28/23 04/13/24 10:06 10:08 13:42 Creatinine Estimated GFR Calcium 10.1 9.6 9.9 Albumin 4.3 4.0 3.9 25-OH Vitamin D Total TSH PTH Intact Intraop 04/14/24 05/06/24 09/23/24 05:03 12:00 13:32 Creatinine Estimated GFR Calcium 9.0 D 10.6 H D Albumin 4.0 25-OH Vitamin D Total 93.8 TSH 3.09 PTH Intact Intraop 125.3 H 09/23/24 13:38 Creatinine 1.40 Estimated GFR 37 Calcium 9.8 D Albumin 4.1 25-OH Vitamin D Total TSH PTH Intact Intraop Laboratory Tests 11/09/24 11/09/24 09:00 11:36 Creatinine 1.40 Estimated GFR 37 Calcium 9.7 Ionized Calcium 5.3 Phosphorus 2.6 L Magnesium 1.9 Albumin 4.3 PTH Intact 205.5 H Ur 24 Hour Volume 925 Ur Creatinine mg/dL 90.53 Ur Creatinine 24 Hour 0.8 L Ur Calcium 24 Hr 37 Calcium/Creat 24 Hr 44 US THYROID 12/04/24 CLINICAL INFORMATION: Nontoxic multinodular goiter. COMPARISON: None available. TECHNIQUE: Linear transducer grayscale and color Doppler examination with attention to the region of the thyroid. FINDINGS: SIZE: Measurements of the thyroid lobes and nodules are given in sagittal, anteroposterior and transverse dimensions respectively. Right Thyroid Lobe: 5.5 x 1.4 x 1.3 cm, volume 5.2 mL. Parenchyma: The gland echotexture is heterogeneous. Thyroid vascularity is normal. Left Thyroid Lobe: 5.2 x 1.8 x 1.5 cm, volume 7.4 mL. Parenchyma: The gland echotexture is heterogeneous. Thyroid vascularity is normal. Isthmus: 0.2 cm in maximum AP dimension. Estimated total number of nodules greater than or equal to 1 cm: 0. 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 Location: Upper left thyroid lobe. Size: 0.7 x 0.7 x 0.6 cm, volume 0.15 mL. Nodule characteristics: Composition: Cystic(0). Echogenicity: Anechoic (0). Shape: Not taller than wide (0). Margins: Smooth (0). Echogenic Foci: Macrocalcifications (1). ACR TI-RADS total points: 0 ACR TI-RADS category: 1 2. Location: Mid left thyroid lobe. Size: 0.9 x 0.7 x 0.6 cm, volume 0.2 mL. Nodule characteristics: Composition: Solid (2). Echogenicity: Hypoechoic (2). Shape: Taller than wide (3). Margins: Smooth (0). Echogenic Foci: None (0). ACR TI-RADS total points: 7 ACR TI-RADS category: 5 3. Location: Lower right thyroid lobe. Size: 0.7 x 0.3 x 0.5 cm, volume 0.06 mL. Nodule characteristics: Composition: Cystic(0). Echogenicity: Anechoic (0). Shape: Not taller than wide (0). Margins: Smooth (0). Echogenic Foci: None (0). ACR TI-RADS total points: 0 ACR TI-RADS category: 1 4. Location: Lower right thyroid lobe. Size: 0.6 x 0.5 x 0.5 cm, volume 0.09 mL. Nodule characteristics: Composition: Cystic(0). Echogenicity: Anechoic (0). Shape: Not taller than wide (0). Margins: Smooth (0). Echogenic Foci: None (0). ACR TI-RADS total points: 0 ACR TI-RADS category: 1 NODES: No lymphadenopathy is seen in the tissue surrounding the thyroid gland. US/US thyroid IMPRESSION: ACR TI RADS 5, mid left thyroid lobe. US RETROPERITONEAL LIMITED (RENAL ONLY) 05/06/24 CLINICAL INFORMATION: Left renal mass. CT report from 04/13/2024: There is a 2 cm mildly hyperattenuating nodule in the interpolar region of the left kidney. This may represent a proteinaceous/hemorrhagic cyst; however, further characterization with renal ultrasound is recommended to exclude a solid lesion. COMPARISON: CT abdomen and pelvis 04/13/2024. Ultrasound abdomen 12/20/2015. Ultrasound renal 02/28/2011. CT abdomen and pelvis 12/20/2015. TECHNIQUE: Real-time imaging of the kidneys. FINDINGS: RIGHT KIDNEY: 11.2 x 5.1 x 5.1 cm (SAG x AP x TRV). The kidney is normal in size, and contour but with slightly increased echogenicity and cortical thinning. No renal calculi. A benign 4.1 x 2.6 x 3.5 cm complex Bosniak Class II cyst with septations, and possibly solid nodular component (see marti image), cannot on the basis of this exam alone be called benign. LEFT KIDNEY: 10.6 x 5.3 x 4.7 cm (SAG x AP x TRV). The kidney is normal in size, and contour but with slightly increased echogenicity and cortical thinning. No renal calculi. The 2 cm mass seen in the left kidney thought to possibly be a proteinaceous cyst (7:60) corresponds with a solid appearing mass measuring 1.6 x 1.7 x 1.4 cm on this ultrasound. However, it should be noted that a minimally hyperattenuating mass was seen in this same location on the 2016 CT measuring 2.3 cm (2016 CT scan 2:31). There is a benign Bosniak class I exophytic lower pole cyst also seen on the CAT scan (7:53). US/US renal BI IMPRESSION: 1. The left renal mass seen on the CAT scan appears solid on ultrasound, but it is comforting to know that this was slightly larger in 2016, making malignancy much less likely. MRI is recommended for further evaluation. 2. The right renal mass is a complex cyst with septations and possibly solid nodular component. This should also be evaluated at the time of MRI. 3. Bilateral renal cortical thinning and increased echogenicity, suggesting medical renal disease. [facility] Medical History (Updated 09/24/24 @ 10:17 by Ivonne Ortega PA-C) Elevated parathyroid hormone Elevated vitamin B12 level Follow-up exam, 3-6 months since previous exam Obesity (BMI 30-39.9) Venous ulcer of left leg History of mammogram (~08/14/22) Femoral bruit History of pyelonephritis Ulnar neuropathy Carpal tunnel syndrome Uterine fibroid Osteoarthritis Anxiety disorder Panic attacks Multinodular goiter Raynauds syndrome Mild hypercholesterolemia Hypertension On beta cj at home GERD (gastroesophageal reflux disease) Rheumatoid arthritis Graves disease DJD (degenerative joint disease) of cervical spine Elevated cholesterol Peripheral vascular disease Surgical History S/P femoral-femoral bypass surgery Hx of left knee surgery History of bladder surgery Hx of tubal ligation Hx of tonsillectomy Hx of appendectomy Hx of colonoscopy (~05/06/20) Social History Household Members: Spouse Housing: [facility] Do you presently have visiting nurse or other home services: No Patient Tobacco Use Status: Former Tobacco user Tobacco use type: Cigarette service: No Assessment & Plan Assessment & Plan (1) Multinodular goiter: Code(s): E04.2 - Nontoxic multinodular goiter Category: Medical Plan: 69-year-old female with no family history of thyroid cancer with no personal history of head or neck radiation who says she has a history of thyroid nodules diagnosed in 2011 and was previously following with the endocrinology, with surveillance ultrasounds, never had an FNA biopsy, and she describes what seems like an uptake and scan so maybe possible concern for hyperthyroidism as well, however was told uptake and scan was normal. US thyroid 12/04/24 I reviewed the images myself [facility] showed B/L subcentimeter cysts/ nodules, a left mid 0.9 cm TR 5 nodule, we will continue to follow with repeat US in November 2025. Normal thyroid function with TSH of 3.09 from 09/23/2024. Plan: -ordered ultrasound of the thyroid to be done in 1 year prior to follow up -ordered TSH and free T4 to be done in 1 year prior to follow up -follow up in 1 year (2) Elevated parathyroid hormone: Code(s): R79.89 - Other specified abnormal findings of blood chemistry Category: Medical Plan: Chart review showed she had an elevated PTH level of 125.3 from September 2024 with vitamin-D level at 93.8, her calcium levels have been high normal ranging anywhere from 9.6-10.2 mostly, her however when she had an elevated level on 05/06/2024 when calcium was at 10.6 with albumin of 4. This was the only high reading. She does have history of osteoporosis and goes to [facility] in [place] and is on Fosamax 70 mg weekly for the past 3 years from 2021 onwards. for osteopenia with the elevated FRAX score of 3.4% at the hip. Her worst T-score was-2.4 at the femoral neck. She continues to follow up with them. Most recent bone density scan done in 2024 showed osteopenia of the hip again, normal bone density of the spine. Bisphosphonates can cause PTH elevation. She also has a history of CKD stage 4, does not see Nephrology anymore, however EGFR is 37 most recently from September 2024, so she could also have secondary hyperparathyroidism in the setting of chronic kidney disease. Blood work from October 2024 showed normal calcium levels, PTH elevated at 205, GFR of 37, 24 hour urine calcium was not elevated in fact was on the lower side likely due to poor nutritional intake of calcium. Labs also done at [facility] in October 2024 show PTH of 115 with calcium of 9.8. Her vitamin-D was also noted to be high at 97 from September 2024, we will have her stopped taking vitamin-D for 3 months, these levels can be repeated by primary care provider in 3 months. At this point PTH is likely elevated in the setting of CKD/bisphosphonate use. Calcium is not high. 24 hour urine calcium is on the lower side instead of hypercalciuria. She can continue osteoporosis treatment with the [facility]. Plan See above Orders: Orders Thyroid Stimulating Hormone 1 Year E04.2 - Nontoxic multinodular goiter Free T4 (Free Thyroxine) 1 Year E04.2 - Nontoxic multinodular goiter US thyroid 1 Year E04.2 - Nontoxic multinodular goiter Patient Instructions: Follow up in 1 year with repeat thyroid ultrasound done a few prior to the appointment, someone will call you to schedule the ultrasound. Do thyroid labs a few days prior to follow up in 1 years, orders in place Coding Level of Care Code Est Pt Level 3 (38453) Diagnoses Multinodular goiter E04.2 Elevated parathyroid hormone R79.89
== END 2024-12-17 13:24 | disposition home or self-care (01) ==
LOC: HO.ENCR 12:55
PROVIDERS: PCP Physician Assistant Medical; Visit Provider Student in an Organized Health Care Education/Training Program
DX: E04.2 Nontoxic multinodular goiter (principal); R79.89 Other specified abnormal findings of blood chemistry
CPT/HCPCS: 99213

== ENCOUNTER → 2024-12-17 12:54 | Outpatient (BNVA) | payer MEDICARE, BC, SELFPAY | PROVIDERS: PCP Physician Assistant Medical; Visit Provider Student in an Organized Health Care Education/Training Program | DX: E04.2 Nontoxic multinodular goiter (principal); R79.89 Other specified abnormal findings of blood chemistry | CPT/HCPCS: 99212 ==

== ENCOUNTER 2025-01-26 13:08 | Outpatient (REF) | payer MEDICARE, BC, SELFPAY ==
--- NOTE | ~2025-01-26 | CT_ITS ---
CLINICAL HISTORY: R91.8 - Other nonspecific abnormal finding of lung field CT chest without contrast Comparison: 07/31/2024 Findings: Emphysema without acute infiltrate. Stable scattered areas of linear scarring. Stable small peripheral pulmonary nodules. Stable nodule lateral segment right lower lobe. Stable ground-glass density posterior right lower lobe. No new pulmonary nodules are identified. No significant mediastinal adenopathy. No significant free pleural fluid. No significant focal bony abnormalities. Incidental small left hepatic cysts. Impression: Multiple stable bilateral pulmonary nodules No new abnormalities have developed This document has been electronically signed by: Anthony Royal MD on 01/26/2025 22:22:43
== END 2025-01-26 13:09 | disposition home or self-care (01) ==
LOC: HO.CT 13:08
PROVIDERS: PCP Physician Assistant Medical; Visit Provider Nurse Practitioner Family
DX: R91.8 Other nonspecific abnormal finding of lung field (principal)
CPT/HCPCS: 71250

== ENCOUNTER → 2025-01-26 13:09 | Outpatient (BNV) | payer MEDICARE, BC, SELFPAY | PROVIDERS: PCP Physician Assistant Medical; Visit Provider Radiology Diagnostic Radiology | DX: R91.8 Other nonspecific abnormal finding of lung field (principal) | CPT/HCPCS: 71250 ==

== ENCOUNTER 2025-03-31 09:54 | Outpatient (AMB) | payer MEDICARE, BC, SELFPAY ==
--- NOTE | 2025-03-31 10:04 | A.OFFPC_ITS ---
Vital Signs 03/31/25 10:05 03/31/25 10:42 Height 5 ft 3.98 in Weight 207 lb BMI 35.5 BP 145/60 H 135/61 Blood Pressure Location Rt brachial Rt brachial Position Sitting Sitting Respiration 16 Pulse 61 60 Pulse Source Pulse Oximeter Monitor Temp 97.5 F Temp Source Temporal Artery Scan Pulse Oximetry (%) 98 Oxygen Delivery Method Room Air Intake Visit Reasons: physical - see comments Medical Screener Required: No Accompanied by: Self / Same As Patient Allergies rofecoxib (From VIOXX) Allergy (Severe, Verified 03/31/25 10:43) ANAPHYLAXIS clopidogrel (From PLAVIX) Allergy (Unknown, Verified 03/31/25 10:43) HIUES lisinopril (LISINOPRIL) Allergy (Unknown, Verified 03/31/25 10:43) ANGIOEDEMA Medication List - Last Reconciled 03/31/25 by Ivonne Ortega PA-C acetaminophen ER (Arthritis Pain Reliever) 650 mg PO Q12H PRN albuterol sulfate 90 mcg/actuation 2 puffs inhalation Q4-6H PRN alendronate 70 mg PO STAPLES allopurinol 300 mg PO DAILY ascorbic acid (vitamin C) (Vitamin C) 1,000 mg PO DAILY aspirin 325 mg PO DAILY atorvastatin 40 mg PO BEDTIME diazepam 5 mg PO BID PRN fexofenadine (Rhea Allergy) 180 mg PO DAILY furosemide (Lasix) 20 mg PO DAILY metoprolol succinate ER 50 mg PO DAILY omeprazole 40 mg PO DAILY@0630 spironolactone 25 mg PO DAILY Tobacco use date assessed: 03/31/25 Fall risk assessment: 2 + Falls in past year Last assessed Fall Risk: 03/31/25 Dental Screening Dental Screen Date: 03/31/25 Did you have a dental visit in the last 12 months?: Yes Did you have a dental problem in the last 6 months where you did not have access to dental care?: No Was dental information given to patient?: Patient has dentist HPI physical - see comments HPI Details The patient is a 69-year-old female presenting for an annual physical examination. She has chronic kidney disease, stage 3, with a GFR of 37, and a history of elevated creatinine levels requiring hospitalization. Her creatinine at this time is within normal range. She has not seen her aws consultant in four years, and a referral has been made for follow-up. The patient has anemia, with a recent red blood cell count of 3.65 million cells/mcL, and normal platelet, sodium, and potassium levels. Her phosphorus level was slightly low. She has pulmonary nodules and is under the care of a sheet finisher for follow-up imaging. The patient experiences anxiety, using diazepam 5 mg as needed for panic attacks. She has hypertension, with a current blood pressure of 135/61 mmHg after rechecking. Her parathyroid hormone levels are elevated, and she is under observation by Dr. Suarez. The patient has a history of a leg ulcer, now healed with a scar. There was an issue with spironolactone prescription, requiring adjustment to 25 mg tablets. Social history - Family: Interested in donating part of her liver to her son, who may need a liver transplant. [facility] Medical History (Updated 03/31/25 @ 10:54 by Ivonne Ortega PA-C) Preventative health care Anemia Annual physical exam CKD (chronic kidney disease) stage 3, GFR 30-59 ml/min Organ donation Colon cancer screening Elevated parathyroid hormone Elevated vitamin B12 level Follow-up exam, 3-6 months since previous exam Obesity (BMI 30-39.9) Venous ulcer of left leg History of mammogram (~08/14/22) Femoral bruit History of pyelonephritis Ulnar neuropathy Carpal tunnel syndrome Uterine fibroid Osteoarthritis Anxiety disorder Panic attacks Multinodular goiter Raynauds syndrome Mild hypercholesterolemia Hypertension On beta cj at home GERD (gastroesophageal reflux disease) Rheumatoid arthritis Graves disease DJD (degenerative joint disease) of cervical spine Elevated cholesterol Peripheral vascular disease Surgical History S/P femoral-femoral bypass surgery Hx of left knee surgery History of bladder surgery Hx of tubal ligation Hx of tonsillectomy Hx of appendectomy Hx of colonoscopy (~05/06/20) Family History Father CHF (congestive heart failure) Mother CHF (congestive heart failure) Brother CHF (congestive heart failure) Social History Household Members: Spouse Housing: Condominium Do you presently have visiting nurse or other home services: No Alcohol intake: current Alcohol intake frequency: holidays/special occasions only Patient Tobacco Use Status: Former Tobacco user Tobacco use type: Cigarette service: No Current occupational status: retired Cognitive needs: Yes (cane) Hearing needs: No Vision needs: Yes (rx glasses) Questionnaire PHQ-9 Over the last 2 weeks, how often have you been bothered by any of the following problems? 1. Little interest or pleasure in doing things: not at all 2. Feeling down, depressed, or hopeless: not at all 3. Trouble falling or staying asleep, or sleeping too much: not at all 4. Feeling tired or having little energy: not at all 5. Poor appetite or overeating: not at all 6. Feeling bad about yourself - or that you are a failure or have let yourself or your family down: not at all 7. Trouble concentrating on things, such as reading the newspaper or watching television: not at all 8. Moving or speaking so slowly that other people could have noticed. Or the opposite - being so fidgety or restless that you have been moving around a lot more than usual: not at all 9. Thoughts that you would be better off or of hurting yourself in some way: not at all Total score: 0 Depression Screening Interpretation: Negative Depression Screening Done: Yes 31019 - PHQ-9 Billing: Yes Source: Developed by Drs. Laci Franklin, Becki Barber, Jorje Salazar and colleagues, with an educational mg from [employer]. Thrive Questionnaire Date Thrive assessed: 04/14/24 AUDIT C Alcohol Use Questionnaire (AUDIT-C) 1. How often do you have a drink containing alcohol?: Monthly or less 2. How many drinks containing alcohol do you have on a typical day when you are drinking?: 1 or 2 3. How often do you have six or more drinks on one occasion?: Never Total Score: 1 Score Reviewed/Action Taken: No AMEBR-7 AMB Questionnaire AMBER-7 Date AMBER - 7 assessed: 03/31/25 Feeling nervous, anxious, or on edge: 0 = Not at all Not being able to stop or control worryin = Not at all Worrying too much about different things: 0 = Not at all Trouble relaxin = Not at all Being so restless that it is hard to sit still: 0 = Not at all Becoming easily annoyed or irritable: 0 = Not at all Feeling afraid as if something awful might happen: 0 = Not at all Total AMBER-7 score (0-4 normal; 5-9 mild; 10-14 moderate; 15-21 severe): 0 Source: Developed by Drs. Laci Franklin, Becki Barber, Jorje Salazar and colleagues, with an educational mg from [employer]. AMBER-7 Assessment Billing AMBER-7 Assessment Tool: AMBER-7 Assessment 52879 Review of Systems Const Details: - Cardiovascular: Denies chest pain, reports ankle swelling. - Respiratory: Denies shortness of breath. - Gastrointestinal: Denies abdominal pain, black or milky stools. - Musculoskeletal: Reports healed ulcer on leg with scar. - Neurological: Reports anxiety, uses diazepam as needed for panic attacks. All systems reviewed & are unremarkable except as noted in HPI and below Physical exam (Primary Care) Vital Signs: Last Vital Signs Temp 97.5 F 03/31/25 10:05 Pulse 61 03/31/25 10:05 Resp 16 03/31/25 10:05 BP 145/60 H 03/31/25 10:05 Pulse Ox 98 03/31/25 10:05 Oxygen Delivery Method Room Air 03/31/25 10:05 Care Plan Goal for BP management: <140/90 at Goal BMI result Body Mass Index 35.5 BMI Assessment/Plan discussion: High BMI High, discussed plan: lifestyle, weight reduction, dietary, physical activity, alcohol moderation and other Tobacco/Smoking Status: Tobacco use Status Tobacco use date assessed 03/31/25 03/31/25 10:15 Patient Tobacco Use Status Former Tobacco user 03/31/25 10:15 Tobacco use type Cigarette 03/31/25 10:15 PHQ-9: PHQ-9 Score PHQ-9: Total score 0 03/31/25 10:17 Depression Screening Interpretation: Negative Thrive Assessment: Date of Thrive Assessment Date Thrive assessed 04/14/24 03/31/25 10:15 Const Other: Appearance: Alert. Oriented X3. No acute distress. Head: Normal external exam. Normocephalic. Atraumatic. Eyes: Pupils are equal, round, and reactive to light. Extraocular movements intact. Conjunctiva and sclera normal. Eyelids normal. Ears: External auditory canal normal. Tympanic membranes normal. Throat: Pharynx normal. Uvula midline. Moist mucous membranes. Neck: Normal inspection. Neck supple. Full range of motion. No adenopathy. Thyroid Normal. No meningeal signs. No neck mass noted. Cardiovascular: Normal heart rate and rhythm. Heart sound normal. No murmurs noted. Pulses normal throughout. Respiratory: No respiratory distress. Painless inspiration. Breath sounds normal. No wheezes/rales/rhonchi noted. Chest nontender. No accessory muscle usage noted or decreased air movement noted. Abdomen: Soft and nontender. Bowel sounds normal in all 4 quadrants. No distention noted. No organomegaly noted. No visible injury noted. Back: No costovertebral angle tenderness. Full range of motion noted. Skin: Skin warm and dry. Normal skin color. Normal skin turgor. No rashes/lesions/lacerations noted. Extremities: No lower extremity edema. Extremities exhibit normal range of motion. Extremities nontender. Neuro: Oriented X 3. No motor deficit. No sensory deficit. Reflexes normal. Office Procedures Flu Questionnaire Does the patient have a severe egg allergy?: No Does the patient have severe life threatening allergies?: No Does the patient have a fever or illness today?: No Has the patient ever had Guillain-[place] Syndrome?: No Has the patient ever had any past reaction to a flu shot?: No Immunizations Fluarix [id number] (PF) 45 mcg (15 mcg x 3)/0.5 mL IM syringe Performing Provider: Ivonne Ortega PA-C [facility] [place] Administered by: BLANCA Morgan on 03/31/25 10:17 Dose Route Admin Location Dispensed Lot Number Expiration Date NDC Feed Inspection Supervisor 0.5 mL IM Left Deltoid 0.5 mL [id number] 01/11/26 [id number] Vision[employer] VIS Given Date VIS Provided VIS Publication Date 03/31/25 Single Vaccine 24 Eligibility Eligibility Date Funding Source Not [facility] Eligible 03/31/25 Private Results Reviewed Results Reviewed: - Labs: Red blood cell count 3.65 million cells/mcL, normal platelet count, sodium, and potassium levels, slightly low phosphorus level. - Imaging: Follow-up imaging planned for pulmonary nodules. Coding Level of Care Code Est Pt Level 4 (04309) Complex EM visit Add On G2211 Diagnoses Annual physical exam Z00.00 CKD (chronic kidney disease) stage 3, GFR 30-59 ml/min N18.30 Anemia D64.9 Multiple pulmonary nodules R91.8 Anxiety disorder F41.9 Hypertension I10 Elevated parathyroid hormone R79.89 Venous ulcer of left leg I83.029; L97.929 Preventative health care Z00.00 Additional Codes PHQ-9 - 60806 - PHQ-9 Billing: Yes ([id number]) AMBER-7 Assessment Billing - AMBER-7 Assessment Tool: AMBER-7 Assessment 45219 ([id number]) Assessment & Plan Assessment & Plan (1) Annual physical exam: Code(s): Z00.00 - Encounter for general adult medical examination without abnormal findings Category: Medical (2) CKD (chronic kidney disease) stage 3, GFR 30-59 ml/min: Code(s): N18.30 - Chronic kidney disease, stage 3 unspecified Category: Medical Plan: The patient has stage 3 chronic kidney disease with a GFR of 37, indicating reduced kidney function. A referral to nephrology has been made for further evaluation and management. (3) Anemia: Code(s): D64.9 - Anemia, unspecified Category: Medical Plan: The patient has a history of anemia with a recent red blood cell count of 3.65 million cells/mcL. Monitoring of blood levels will continue to assess the need for further intervention. (4) Multiple pulmonary nodules: Code(s): R91.8 - Other nonspecific abnormal finding of lung field Category: Medical Plan: The patient is under the care of a sheet finisher for pulmonary nodules, with follow-up imaging planned to monitor any changes. (5) Anxiety disorder: Code(s): F41.9 - Anxiety disorder, unspecified Category: Medical Plan: The patient experiences anxiety and uses diazepam 5 mg as needed for panic attacks. Continued monitoring and management of anxiety symptoms are recommended. (6) Hypertension: Code(s): I10 - Essential (primary) hypertension Category: Medical Plan: The patient's blood pressure was measured at 135/61 mmHg after rechecking, indicating controlled hypertension. Regular monitoring of blood pressure and adherence to antihypertensive medication are advised. (7) Elevated parathyroid hormone: Code(s): R79.89 - Other specified abnormal findings of blood chemistry Category: Medical Plan: The patient has elevated parathyroid hormone levels and is under observation by Dr. Suarez. Continued monitoring of hormone levels is recommended to assess the need for further intervention. (8) Venous ulcer of left leg: Code(s): I83.029 - Varicose veins of left lower extremity with ulcer of unspecified site; L97.929 - Non-pressure chronic ulcer of unspecified part of left lower leg with unspecified severity Category: Medical Plan: The patient has a history of a leg ulcer, which has healed, leaving a scar. No further intervention is required at this time. (9) Preventative health care: Code(s): Z00.00 - Encounter for general adult medical examination without abnormal findings Category: Medical Plan: The patient is due for a colonoscopy as part of preventative care measures. Scheduling for the procedure is recommended to ensure timely screening. Plan Plan Patient was informed and verbally consented to the use of an ambient scribe for clinic note documentation during this visit. 1. Chronic Kidney Disease The patient has stage 3 chronic kidney disease with a GFR of 37, indicating reduced kidney function. A referral to nephrology has been made for further evaluation and management. 2. Anemia The patient has a history of anemia with a recent red blood cell count of 3.65 million cells/mcL. Monitoring of blood levels will continue to assess the need for further intervention. 3. Pulmonary Nodules The patient is under the care of a sheet finisher for pulmonary nodules, with follow-up imaging planned to monitor any changes. 4. Anxiety The patient experiences anxiety and uses diazepam 5 mg as needed for panic attacks. Continued monitoring and management of anxiety symptoms are recommended. 5. Hypertension The patient's blood pressure was measured at 135/61 mmHg after rechecking, indicating controlled hypertension. Regular monitoring of blood pressure and adherence to antihypertensive medication are advised. 6. Elevated Parathyroid Hormone The patient has elevated parathyroid hormone levels and is under observation by Dr. Suarez. Continued monitoring of hormone levels is recommended to assess the need for further intervention. 7. History Of Ulcer The patient has a history of a leg ulcer, which has healed, leaving a scar. No further intervention is required at this time. 8. Preventative Care: Colonoscopy The patient is due for a colonoscopy as part of preventative care measures. Scheduling for the procedure is recommended to ensure timely screening. During the visit, we discussed the patient's chronic kidney disease and the importance of follow-up with nephrology to monitor kidney function and prevent further decline. We also addressed the patient's anemia, pulmonary nodules, and anxiety management, emphasizing the need for regular monitoring and follow-up with specialists as needed. The patient was informed about the elevated parathyroid hormone levels and the ongoing observation by Dr. Suarez. We reviewed the medication management issue with spironolactone and corrected the prescription to ensure proper dosing. Preventative care measures, including the need for a colonoscopy, were discussed, and the patient was advised to schedule the procedure. Orders: Orders Influenza [id number] Immunization Today Z23 - Encounter for immunization Referrals Gastroenterology Referral Z12.11 - Encounter for screening for malignant neoplasm of colon, Z52.9 - Donor of unspecified organ or tissue Nephrology Referral N18.30 - Chronic kidney disease, stage 3 unspecified Medications: Changed From spironolactone 25 mg (1/2 x 50 mg) PO DAILY 90 tabs 0RF To spironolactone 25 mg PO DAILY 90 tabs 3RF Patient Instructions: - Follow up with nephrology for chronic kidney disease management. - Monitor blood levels for anemia and report any significant changes. - Continue follow-up with pulmonology for pulmonary nodules. - Use diazepam as needed for anxiety and report any changes in symptoms. - Monitor blood pressure regularly and adhere to prescribed medication. - Schedule a colonoscopy for preventative care.
[2025-03-31 10:05] VITALS: BP 145/60; PULSE 61; RESP 16; TEMP 36.4; O2SAT 98; BMI 35.5
[2025-03-31 10:42] VITALS: BP 135/61; PULSE 60
== END 2025-03-31 10:40 | disposition home or self-care (01) ==
LOC: HO.HMCSH 09:55
PROVIDERS: PCP Physician Assistant Medical; Visit Provider Physician Assistant Medical
DX: Z00.00 Encounter for general adult medical examination without abnormal findings (principal); N18.30 Chronic kidney disease, stage 3 unspecified; D64.9 Anemia, unspecified; R91.8 Other nonspecific abnormal finding of lung field; F41.9 Anxiety disorder, unspecified; I10 Essential (primary) hypertension; R79.89 Other specified abnormal findings of blood chemistry; I83.029 Varicose veins of left lower extremity with ulcer of unspecified site; L97.929 Non-pressure chronic ulcer of unspecified part of left lower leg with unspecified severity; Z23 Encounter for immunization

== ENCOUNTER → 2025-03-31 09:54 | Outpatient (BNVA) | payer MEDICARE, BC, SELFPAY | PROVIDERS: PCP Physician Assistant Medical; Visit Provider Physician Assistant Medical | DX: Z00.00 Encounter for general adult medical examination without abnormal findings (principal); I12.9 Hypertensive chronic kidney disease with stage 1 through stage 4 chronic kidney disease, or unspecified chronic kidney disease; N18.31 Chronic kidney disease, stage 3a; D63.1 Anemia in chronic kidney disease; R91.8 Other nonspecific abnormal finding of lung field; F41.9 Anxiety disorder, unspecified; I83.92 Asymptomatic varicose veins of left lower extremity; R79.89 Other specified abnormal findings of blood chemistry; Z23 Encounter for immunization | CPT/HCPCS: 90471; 90656; 96127; 99212 ==

== ENCOUNTER 2025-04-21 13:22 | Outpatient (AMB) | payer MEDICARE, BC, SELFPAY ==
[2025-04-21 13:51] VITALS: BP 152/94; PULSE 93; TEMP 36.8; O2SAT 96; BMI 35.4
--- NOTE | 2025-04-21 13:51 | AM.OFFWIN_ITS ---
Intake Vital Signs 04/21/25 13:51 Height 5 ft 3 in Weight 200 lb BMI 35.4 BP 152/94 H Blood Pressure Location Rt brachial Position Sitting Pulse 93 Pulse Source Pulse Oximeter Temp 98.3 F Temp Source Oral Pulse Oximetry (%) 96 Oxygen Delivery Method Room Air Intake Visit Reasons: EP Right side face swelling Intake Note: pt presents with pain and swelling to right side of face, hurts to clench jaw, right ear pain Patient Tobacco Use Status: Former Tobacco user Allergies rofecoxib (From VIOXX) Allergy (Severe, Verified 04/21/25 13:51) ANAPHYLAXIS clopidogrel (From PLAVIX) Allergy (Unknown, Verified 04/21/25 13:51) Hives lisinopril (LISINOPRIL) Allergy (Unknown, Verified 04/21/25 13:51) ANGIOEDEMA Do you need a note to return to daycare/school/sports/work: No HPI HPI Comments History of Present Illness Details History - The patient is a 70-year-old female pr esenting with right sided facial pain, ear pain, and a swollen cheek. - Facial pain and swelling have been pre sent for a month, with pain radiating from the ear to the jaw. - Denies chronic dental issues or recent dental procedures. Has many crowns and bridges, sees a dentist every 6 months and has an appt Nov . - No history of ear infections or surger ies. - Reports increased saliva production; wilver lainez is limiting her ability to eat. - No fever or changes in hearing reporte d. Physical Exam General: Cooperative, healthy appearing, comfortable and no acute distress Orientation/consciousness: Patient oriented x3 Limitations: No limitations Head: Normal to inspection Ears: External ears normal bilaterally, hearing grossly normal bilaterally, external ears normal and TM's normal bilaterally Nose: Normal external nose present, Normal nares present and No nasal discharge present Face and sinus: normal facial exam, 1cm round area of induration with tenderness on right lower cheek Mouth: Normal oral and palatal mucosa present, moist mucous membranes, no obvious dental caries noted Throat: Yes tonsils normal, Yes uvula midline. Posterior oropharynx slight erythema, no exudates Eyes: Appearance normal, both eyes and all related structures Neck: Normal visual inspection, full ROM, TTP cervical lymph nodes on right side Respiratory: Normal respiratory effort, able to speak in complete sentences, Actively coughing, no respiratory distress, not tachypneic, no tripod positioning and no use of accessory muscles Skin: No rashes or lesions noted Neuro: Patient oriented x3 Extremities: Normal to inspection and Yes no clubbing, cyanosis or edema Review of Systems - HEENT: Reports facial pain, ear pain, and swollen cheek. Denies fever and changes in hearing. - Gastrointestinal: Reports increased sa liva production. All systems reviewed and are unremarkable except as noted in HPI [facility] Medical History (Updated 04/21/25 @ 14:31 by Maria L Loya PA-C) Preventative health care Anemia Annual physical exam CKD (chronic kidney disease) stage 3, GFR 30-59 ml/min Organ donation Colon cancer screening Elevated parathyroid hormone Elevated vitamin B12 level Follow-up exam, 3-6 months since previous exam Obesity (BMI 30-39.9) Venous ulcer of left leg History of mammogram (~08/14/22) Femoral bruit History of pyelonephritis Ulnar neuropathy Carpal tunnel syndrome Uterine fibroid Osteoarthritis Anxiety disorder Panic attacks Multinodular goiter Raynauds syndrome Mild hypercholesterolemia Hypertension On beta cj at home GERD (gastroesophageal reflux disease) Rheumatoid arthritis Graves disease DJD (degenerative joint disease) of cervical spine Elevated cholesterol Peripheral vascular disease Surgical History S/P femoral-femoral bypass surgery Hx of left knee surgery History of bladder surgery Hx of tubal ligation Hx of tonsillectomy Hx of appendectomy Hx of colonoscopy (~05/06/20) Family History Father CHF (congestive heart failure) Mother CHF (congestive heart failure) Brother CHF (congestive heart failure) Social History Household Members: Spouse Housing: Condominium Do you presently have visiting nurse or other home services: No Alcohol intake: current Alcohol intake frequency: holidays/special occasions only Patient Tobacco Use Status: Former Tobacco user Tobacco use type: Cigarette service: No Current occupational status: retired Cognitive needs: Yes (cane) Hearing needs: No Vision needs: Yes (rx glasses) Physical Exam Vital Signs: Last Vital Signs Temp 98.3 F 04/21/25 13:51 Pulse 93 10/08/25 13:51 BP 152/94 H 04/21/25 13:51 Pulse Ox 96 04/21/25 13:51 Oxygen Delivery Method Room Air 04/21/25 13:51 BMI result Body Mass Index 35.4 Assessment & Plan Assessment & Plan (1) Abscess: Code(s): L02.91 - Cutaneous abscess, unspecified Plan: Plan Patient was informed and verbally consented to the use of an ambient scribe for clinic note documentation during this visit. - VSS, pt well appearing and PE remarkable for small abscess in right cheek - Initiate treatment with Augmentin for suspected infection/abscess in the cheek. - Monitor for resolution of swelling and pain. If it increases, follow up with Dentist sooner than Nov 3 or can go to the ED if fever or worsening of symptoms develop. - Advised to increase fluid intake to aid lymphatic drainage. Medications: New amoxicillin-pot clavulanate 875-125 mg 1 tab PO Q12H 14 tabs 0RF Coding Level of Care Code Est Pt Level 3 (01179) Diagnoses Abscess L02.91
== END 2025-04-21 14:31 | disposition home or self-care (01) ==
PROVIDERS: PCP Physician Assistant Medical; Visit Provider Physician Assistant
DX: L02.91 Cutaneous abscess, unspecified (principal); Z13.9 Encounter for screening, unspecified

== ENCOUNTER → 2025-04-21 13:22 | Outpatient (BNVA) | payer MEDICARE, BC, SELFPAY | PROVIDERS: PCP Physician Assistant Medical; Visit Provider Physician Assistant | DX: L02.01 Cutaneous abscess of face (principal) | CPT/HCPCS: 87880; 99212 ==

== ENCOUNTER 2025-05-14 14:25 | Outpatient (AMB) | payer MEDICARE, BC, SELFPAY ==
--- NOTE | 2025-05-14 14:41 | HO.NEPHOV_ITS ---
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 She is 70 years of age with H/O CKD, RA, Raynauds, hypertenison and PAD. She has H/O stents put into both her lower extremities. She still gets leg cramps during ambulation. She denies carotid disease, CAD, CHF or CVA. She does not take excessive NSAID's. She has not had any renal stones for many decades. She denies new bone pain, epistaxis, photosensitivity, edema, hearing deficits, dizziness, nausea, vomiting, diarrhea, PND, PND or orthopnea. She denies any orthostatic symptoms. Her SBP has been between 130 to 140. She is not a diabetic. [facility]LY [facility] Medical History (Updated 05/14/25 @ 15:13 by Lito Ovalle MD) Preventative health care Anemia Annual physical exam CKD (chronic kidney disease) stage 3, GFR 30-59 ml/min Organ donation Colon cancer screening Elevated parathyroid hormone Elevated vitamin B12 level Follow-up exam, 3-6 months since previous exam Obesity (BMI 30-39.9) Venous ulcer of left leg History of mammogram (~08/14/22) Femoral bruit History of pyelonephritis Ulnar neuropathy Carpal tunnel syndrome Uterine fibroid Osteoarthritis Anxiety disorder Panic attacks Multinodular goiter Raynauds syndrome Mild hypercholesterolemia Hypertension On beta cj at home GERD (gastroesophageal reflux disease) Rheumatoid arthritis Graves disease DJD (degenerative joint disease) of cervical spine Elevated cholesterol Peripheral vascular disease Surgical History S/P femoral-femoral bypass surgery Hx of left knee surgery History of bladder surgery Hx of tubal ligation Hx of tonsillectomy Hx of appendectomy Hx of colonoscopy (~05/06/20) Family History Father CHF (congestive heart failure) Mother CHF (congestive heart failure) Brother CHF (congestive heart failure) Social History Household Members: [facility] Do you presently have visiting nurse or other home services: No Alcohol intake: current Alcohol intake frequency: holidays/special occasions only Patient Tobacco Use Status: Former Tobacco user Tobacco use type: Cigarette service: No Current occupational status: retired Cognitive needs: Yes (cane) Hearing needs: No Vision needs: Yes (rx glasses) Review of Systems Const All systems reviewed & are unremarkable except as noted in HPI and below Physical Exam Vital Signs: Last Vital Signs Pulse 75 05/14/25 14:49 BP 142/80 H 05/14/25 14:49 Pulse Ox 95 05/14/25 14:49 Oxygen Delivery Method Room Air 05/14/25 14:49 BMI result Body Mass Index 36.0 Const General: comfortable and no acute distress Orientation/consciousness: patient oriented x3 HEENT Head: Yes normocephalic Mouth: Normal oral and palatal mucosa present Eyes EOM: EOMs intact bilaterally Neck Neck: Yes supple Resp Auscultation: clear to auscultation bilaterally Cardio Jugular venous distension: no JVD Rate: regular rate Heart sounds: Murmur heart sound present GI Palpation (GI): Soft to palpation Auscultation: normal bowel sounds General: Yes no CVA tenderness Back/Spine/Pelvis Back: no CVA tenderness Skin General skin exam: no rashes or lesions noted Neuro General: patient oriented x3 and moves all extremities Extrem General: Yes no pedal edema Results Reviewed Nephrology Results: Renal US 05/06/24 Assessment & Plan Assessment & Plan (1) Hypertension: Code(s): I10 - Essential (primary) hypertension Category: Medical Qualifiers: Hypertension type: primary hypertension Qualified Code(s): I10 - Essential (primary) hypertension (2) CKD (chronic kidney disease) stage 3, GFR 30-59 ml/min: Code(s): N18.30 - Chronic kidney disease, stage 3 unspecified Category: Medical Qualifiers: Chronic kidney disease stage 3 subtype: stage 3a (GFR 45-59) Qualified Code(s): N18.31 - Chronic kidney disease, stage 3a Plan Mayelin Espinal has CKD likely from vascular disease. Her renal functions are stable. She has H/O renal mass. She has not tolerated ACEI. She would benefit from weight loss. She is not a diabetic. Her BP needs to be maintained at < 130/80 mm of Hg. I shall monitor her BP and optimize her regimen to keep it at goal. She will need Doppler of renal arteries and MRI of kidneys at next visit. She will be a great candidate for SGLT2i. She should maintain good hydration and minimize/avoid excessive NSAID's. All these have been discussed with patient. Answered all questions and F/U was given Orders: Orders Creatinine 6 Months I10 - Essential (primary) hypertension, N18.30 - Chronic kidney disease, stage 3 unspecified Electrolytes 6 Months I10 - Essential (primary) hypertension, N18.30 - Chronic kidney disease, stage 3 unspecified Calcium 6 Months I10 - Essential (primary) hypertension, N18.30 - Chronic kidney disease, stage 3 unspecified Blood Urea Nitrogen 6 Months I10 - Essential (primary) hypertension, N18.30 - Chronic kidney disease, stage 3 unspecified UA and rflx microscopic 6 Months I10 - Essential (primary) hypertension, N18.30 - Chronic kidney disease, stage 3 unspecified Protein Creatinine Ratio, Ur 6 Months I10 - Essential (primary) hypertension, N18.30 - Chronic kidney disease, stage 3 unspecified Coding Level of Care Code New Pt Level 4 (22227) Diagnoses Primary hypertension I10 Hypertension type: primary hypertension Stage 3a chronic kidney disease N18.31 Chronic kidney disease stage 3 subtype: stage 3a (GFR 45-59)
[2025-05-14 14:49] VITALS: BP 142/80; PULSE 75; O2SAT 95; BMI 36.0
== END 2025-05-14 15:12 | disposition home or self-care (01) ==
LOC: HO.HKA 14:26
PROVIDERS: PCP Physician Assistant Medical; Referring Provider Physician Assistant Medical; Visit Provider Internal Medicine Nephrology
DX: I10 Essential (primary) hypertension (principal); N18.31 Chronic kidney disease, stage 3a
CPT/HCPCS: 99204

== ENCOUNTER → 2025-05-14 14:25 | Outpatient (BNVA) | payer MEDICARE, BC, SELFPAY | PROVIDERS: PCP Physician Assistant Medical; Referring Provider Physician Assistant Medical; Visit Provider Internal Medicine Nephrology | DX: I12.9 Hypertensive chronic kidney disease with stage 1 through stage 4 chronic kidney disease, or unspecified chronic kidney disease (principal); N18.31 Chronic kidney disease, stage 3a; Z87.891 Personal history of nicotine dependence; E66.9 Obesity, unspecified; Z68.36 Body mass index [BMI] 36.0-36.9, adult | CPT/HCPCS: 99202 ==

== ENCOUNTER 2025-05-24 10:48 | Outpatient (AMB) | payer MEDICARE, BC, SELFPAY ==
--- NOTE | 2025-05-24 10:51 | A.OFFVIS_ITS ---
Vital Signs 05/24/25 10:52 Height 5 ft 3 in Weight 197 lb 5.019 oz BMI 34.9 BP 140/78 H Blood Pressure Location Rt brachial Position Sitting Pulse 90 Pulse Source Pulse Oximeter Pulse Oximetry (%) 96 Oxygen Delivery Method Room Air Intake Visit Reasons: Dyspnea Allergies rofecoxib (From VIOXX) Allergy (Severe, Verified 05/24/25 10:56) ANAPHYLAXIS clopidogrel (From PLAVIX) Allergy (Unknown, Verified 05/24/25 10:56) Hives lisinopril (LISINOPRIL) Allergy (Unknown, Verified 05/24/25 10:56) ANGIOEDEMA HPI HPI Dyspnea: Details: Mayelin Espinal is a pleasant 70 year old female, former 40 pack year smoker, quit 2011 with underlying RA, Raynaud's, PVD, and h/o basal cell carcinoma s/p resection. She was initially referred by PCP for pulmonary evaluation she was admitted to [facility] 04/13-04/15 for community acquired PNA. CT of abdomen/pelvis found patchy airspace consolidation of left lung base suggestive of infectious/inflammatory process. Recommendation made to repeat chest imaging performed on 05/06/24. This continued to reveal bibasilar patchy opacities L>R. On imaging from 07/2024 there was resolving opacities with recommendation for repeat chest CT in 6 months, which was performed January 2025. Today she presents to review results. At this time she denies any respiratory symptoms. Denies any visits to urgent care or hospitalizations related to respiratory disress since the last visit. [facility]LY [facility] Medical History (Updated 05/24/25 @ 19:39 by Silvia Larios NP) Preventative health care Anemia Annual physical exam CKD (chronic kidney disease) stage 3, GFR 30-59 ml/min Organ donation Colon cancer screening Elevated parathyroid hormone Elevated vitamin B12 level Follow-up exam, 3-6 months since previous exam Obesity (BMI 30-39.9) Venous ulcer of left leg History of mammogram (~08/14/22) Femoral bruit History of pyelonephritis Ulnar neuropathy Carpal tunnel syndrome Uterine fibroid Osteoarthritis Anxiety disorder Panic attacks Multinodular goiter Raynauds syndrome Mild hypercholesterolemia Hypertension On beta cj at home GERD (gastroesophageal reflux disease) Rheumatoid arthritis Graves disease DJD (degenerative joint disease) of cervical spine Elevated cholesterol Peripheral vascular disease Surgical History S/P femoral-femoral bypass surgery Hx of left knee surgery History of bladder surgery Hx of tubal ligation Hx of tonsillectomy Hx of appendectomy Hx of colonoscopy (~05/06/20) Family History Father CHF (congestive heart failure) Mother CHF (congestive heart failure) Brother CHF (congestive heart failure) Social History Household Members: [facility] Do you presently have visiting nurse or other home services: No Alcohol intake: current Alcohol intake frequency: holidays/special occasions only Patient Tobacco Use Status: Former Tobacco user Tobacco use type: Cigarette service: No Current occupational status: retired Cognitive needs: Yes (cane) Hearing needs: No Vision needs: Yes (rx glasses) Review of Systems Const Denies chills, Denies excessive sweating, Denies fever(s), Denies headache(s) and Denies night sweats Eyes Denies dry eyes, Denies irritation and Denies itchy eyes ENT Reports Normal hearing present, Denies headache(s), Denies nasal congestion, Denies nasal discharge, Reports post nasal drip and Denies sore throat Card Denies chest pain, Denies chest pain at rest, Denies chest pain with activity, Denies claudication, Denies leg edema, Denies orthopnea and Denies paroxysmal nocturnal dyspnea Resp Denies chest congestion, Denies cough, Denies excessive phlegm production, Denies pain on inspiration, Denies pain with cough and Denies stridor Musc Denies myalgias Neuro Reports Normal hearing present and Denies headache(s) Endo Denies excessive sweating Jasvir/Lymph Denies lymphadenopathy Aller/Immun Denies itchy eyes and Denies seasonal rhinorrhea Physical Exam Vital Signs: Last Vital Signs Pulse 90 05/24/25 10:52 BP 140/78 H 05/24/25 10:52 Pulse Ox 96 05/24/25 10:52 Oxygen Delivery Method Room Air 05/24/25 10:52 BMI result Body Mass Index 34.9 Const General: cooperative, healthy appearing, comfortable, no acute distress, well developed and alert Nutritional Appearance: obese Orientation/consciousness: patient oriented x3 Limitations: no limitations HEENT Head: Yes normal to inspection, Yes normocephalic and Yes atraumatic Ears: hearing grossly normal bilaterally and external ears normal Eyes General: appearance normal, both eyes and all related structures Eyelids: Yes eyelids normal Sclerae: sclerae normal EOM: EOMs intact bilaterally Neck Neck: Yes normal visual inspection and Yes no lymphadenopathy Lymphatic: no lymphadenopathy noted Chest Chest palpation & inspection: normal inspection of the chest Resp Other: faint inspiratory bibasilar crackles Effort & Inspection: normal respiratory effort, able to speak in complete sentences, no audible wheezes, no cough, no stridor, not tachypneic, no tripod positioning and no use of accessory muscles Cardio Jugular venous distension: no JVD Rate: regular rate Rhythm: regular rhythm Skin Other: warm, dry General skin exam: no rashes or lesions noted Neuro General: patient oriented x3 Cranial nerves: Yes Normal hearing present Cognition (Neuro): normal cognition Gait exam (Neuro): Normal gait present Extrem General: Yes normal to inspection, Yes capillary refill normal, Yes no clubbing, cyanosis or edema and Yes no pedal edema Psych Appearance: grossly normal and well kempt Speech and movement: Normal speech and movement present and Clear speech present Affect: normal affect Attitude: cooperative Thought process: Normal thought process present Thought content: Normal thought content present Insight: Good insight present (Psych) Judgement: Good judgement present (Psych) Results Reviewed Results Reviewed: [address] [address] [address] Scan Report Signed Patient: Mayelin Packer MR#: [id number] : 1955 Acct:[id number] Age/Sex: 69 / F ADM Date: 01/26/25 Loc: HO.CT Attending Dr: Silvia Larios NP Ordering Physician: Silvia Larios NP Date of Service: 01/26/25 Procedure(s): CT chest wo IV con Accession Number(s): [id number] cc: Ivonne Ortega PA-C; Silvia Larios NP~ Report Number: [id number]: Total DLP = 332.00 mGy-cm CLINICAL HISTORY: R91.8 - Other nonspecific abnormal finding of lung field CT chest without contrast Comparison: 07/31/2024 Findings: Emphysema without acute infiltrate. Stable scattered areas of linear scarring. Stable small peripheral pulmonary nodules. Stable nodule lateral segment right lower lobe. Stable ground-glass density posterior right lower lobe. No new pulmonary nodules are identified. No significant mediastinal adenopathy. No significant free pleural fluid. No significant focal bony abnormalities. Incidental small left hepatic cysts. Impression: Multiple stable bilateral pulmonary nodules No new abnormalities have developed This document has been electronically signed by: Anthoyn Royal MD on 01/26/2025 22:22:43 Dictated By: Anthony Royal MD Signed By: <Electronically signed by Anthony Royal MD in OV> 01/26/252223 DD/ 21 Assessment & Plan Assessment & Plan (1) Dyspnea on exertion: Code(s): R06.09 - Other forms of dyspnea Category: Medical (2) Rheumatoid arthritis: Code(s): M06.9 - Rheumatoid arthritis, unspecified Category: Medical (3) Multiple pulmonary nodules: Code(s): R91.8 - Other nonspecific abnormal finding of lung field Category: Medical Plan CT chest 07/2024 revealed mild subpleural fibrotic changes in both lungs, multiple stable pulmonary nodules, largest 1.6 cm of RLL that has been stable since abdominal CT in 03/2024. Reviewed chest CT from 01/2025 which continues to demonstrate stability of nodules and essential stability of fibrosis. We discussed trialing a course of prednisone to assess for radiologic improvements, as possible NSIP given h/o RA, however she is asymptomatic at this time and would like to hold off. She is aware to call if symptoms change. Will send for repeat imaging in 6 months to assess for stability of fibrosis. All questions were answered and patient is in agreement of plan. Will follow up to review results or sooner if needed. Orders: Orders CT chest wo IV con 2 Months J84.9 - Interstitial pulmonary disease, unspecified Coding Level of Care Code Est Pt Level 4 (72173) Diagnoses Dyspnea on exertion R06.09 Rheumatoid arthritis M06.9 Multiple pulmonary nodules R91.8
[2025-05-24 10:52] VITALS: BP 140/78; PULSE 90; O2SAT 96; BMI 34.9
== END 2025-05-24 11:22 | disposition home or self-care (01) ==
LOC: HO.HPS 10:49
PROVIDERS: PCP Physician Assistant Medical; Visit Provider Nurse Practitioner Family
DX: R06.09 Other forms of dyspnea (principal); M06.9 Rheumatoid arthritis, unspecified; R91.8 Other nonspecific abnormal finding of lung field
CPT/HCPCS: 99214

== ENCOUNTER → 2025-05-24 10:48 | Outpatient (BNVA) | payer MEDICARE, BC, SELFPAY | PROVIDERS: PCP Physician Assistant Medical; Visit Provider Nurse Practitioner Family | DX: R06.09 Other forms of dyspnea (principal); M06.9 Rheumatoid arthritis, unspecified; R91.8 Other nonspecific abnormal finding of lung field | CPT/HCPCS: 99212 ==